=== PATIENT | female | born 1955 | race Caucasian/White ===

== ENCOUNTER 2018-08-03 08:59 | Emergency (ER) | payer BC ==
[2018-08-03] MEDS ORDERED: Ibuprofen 800 MG Tab PO ONE (09:13)
[2018-08-03] MEDS ORDERED: Colchicine 0.6 MG Tab PO ONE ×2 (09:13→11:11)
--- NOTE | 2018-08-03 09:16 | EDM.PDOC ---
ED HPI GENERAL MEDICAL PROBLEM - General Chief Complaint: Upper Extremity Injury/Pain Stated Complaint: WRIST PAIN Time Seen by Provider: 08/03/18 09:11 Source of Information: Reports: Patient History Limitations: Reports: No Limitations - History of Present Illness INITIAL COMMENTS - FREE TEXT/NARRATIVE: 63-year-old female presents the ED with acute swelling and pain with very limited range of motion in her right wrist. No injuries noted. She states was sore yesterday morning when she woke and as the day went on it progressively intensified in pain and this morning it is much worse. In fact she did not sleep much last night due to the severity of the pain. Constant aching pain with severe pain with any movement. The stripped out in the past. No recent injuries to the wrist. No previous surgery to the wrist. Onset: Gradual Onset Date: 08/02/18 (Symptoms yesterday morning of some mild pain and discomfort right wrist is progressively worsened as the day went on) Duration: Day(s):, Getting Worse Location: Reports: Upper Extremity, Right (Right wrist particular the ulnar aspect) Quality: Reports: Ache, Throbbing Severity: Moderate Improves with: Reports: Rest Worsens with: Reports: Movement Context: Reports: Other (Spontaneous occurrence.). Denies: Activity, Exercise, Lifting, Sick Contact, Trauma Associated Symptoms: Reports: No Other Symptoms Right Wrist Pain Score (Numeric/FACES): 10 - Related Data Allergies Allergy/AdvReac Type Severity Reaction Status Date / Time cephalexin Allergy Cannot Verified 08/03/18 09:09 Remember clarithromycin Allergy Cannot Verified 08/03/18 09:09 Remember clindamycin Allergy Nausea Verified 08/03/18 09:09 codeine Allergy Cannot Verified 08/03/18 09:09 Remember cyclobenzaprine Allergy Vomiting Verified 08/03/18 09:09 [Cyclobenzaprine] dextrose Allergy Other Verified 08/03/18 09:09 fenofibrate Allergy Cannot Verified 08/03/18 09:09 Remember fexofenadine Allergy Confusion Verified 08/03/18 09:09 fluoxetine Allergy Diarrhea Verified 08/03/18 09:09 levofloxacin Allergy Other Verified 08/03/18 09:09 levothyroxine sodium Allergy Cannot Verified 08/03/18 09:09 Remember paroxetine [Paroxetine] Allergy Rash Verified 08/03/18 09:09 Penicillins Allergy Cannot Verified 08/03/18 09:09 Remember pseudoephedrine Allergy Confusion Verified 08/03/18 09:09 red dye Allergy Cannot Verified 08/03/18 09:09 Remember Tetanus Vaccines and Toxoid Allergy Hives Verified 08/03/18 09:09 [Tetanus Vaccines & Toxoid] tetracycline [Tetracycline] Allergy Cannot Verified 08/03/18 09:09 Remember venlafaxine Allergy Cannot Verified 08/03/18 09:09 Remember venom-honey bee Allergy Itching Verified 08/03/18 09:09 [bee venom (honey bee)] zuclopenthixol Allergy Cannot Verified 08/03/18 09:09 Remember Home Meds: Home Meds Azithromycin [Zithromax] 500 mg PO DAILY #7 tab 08/03/18 [Rx] Biotin 10,000 mcg PO DAILY 08/03/18 [History] Brimonidine Tartrate/Timolol [Combigan Eye Drops] 5 ml EYERT BID 08/03/18 [ History] Cholecalciferol (Vitamin D3) [Vitamin D3] 1,000 unit PO DAILY 08/03/18 [History] Estradiol 1 mg PO DAILY 08/03/18 [History] Ferrous Sulfate 325 mg PO ASDIRECTED 08/03/18 [History] Finasteride 0.14 tab PO DAILY 08/03/18 [History] Flunisolide [Nasalide Nasal [place]] 1 spray SHYAM BID 08/03/18 [History] Irbesartan [Avapro] 75 mg PO DAILY 08/03/18 [History] Levothyroxine 150 mcg PO ACBREAKFAST 08/03/18 [History] Loratadine [Claritin] 10 mg PO DAILY PRN 08/03/18 [History] Magnesium Malate 1,250 mg PO DAILY 08/03/18 [History] Multivits-Min/Iron/FA/Lutein [Centrum Silver Women Tablet] 1 each PO DAILY 08/03 [History] Omeprazole 40 mg PO DAILY 08/03/18 [History] Orphenadrine [Norflex] 100 mg PO BID PRN 08/03/18 [History] Polyvinyl Alcohol/Povidone/Pf [Refresh Classic Eye Drops] 1 each EYELF DAILY PRN 08/03/18 [History] Prednisolone Acetate/Pf [Prednisolone Acet 1% Eye Drop] 1 drop EYELF QID [History] Spironolactone 150 mg PO ACBREAKFAST 08/03/18 [History] Travoprost [Travatan Z] 5 ml EYERT BEDTIME 08/03/18 [History] oxyCODONE HCl/Acetaminophen [Percocet 5-325 mg Tablet] 1 - 2 each PO Q4H PRN # 10 tablet 08/03/18 [Rx] predniSONE [Deltasone] 20 mg PO BID #10 tablet 08/03/18 [Rx] valACYclovir HCl [Valtrex] 500 mg PO DAILY 08/03/18 [History] Past Medical History HEENT History: Reports: Glaucoma - Past Surgical History GI Surgical History: Reports: Appendectomy Social & Family History - Living Situation & Occupation Living situation: Reports: Occupation: Retired Review of Systems - Review of Systems Review Of Systems: See Below Constitutional: Denies: Chills, Diaphoresis, Fever, Weakness Eyes: Reports: Other (Chronic glaucoma with decreased visual acuity with loss of peripheral vision.) Mouth/Throat: Reports: No Symptoms Respiratory: Reports: No Symptoms Cardiovascular: Reports: No Symptoms GI/Abdominal: Reports: No Symptoms Musculoskeletal: Reports: Other (Acute joint pain in her right wrist over the last 24 hours.) Skin: Reports: Other Neurological: Reports: No Symptoms Psychiatric: Reports: No Symptoms ED EXAM, GENERAL - Physical Exam Exam: See Below Exam Limited By: No Limitations General Appearance: Alert, WD/WN, No Apparent Distress Extremities: Other (Examination of her right wrist reveals some erythema with increased warmth particularly over the ulnar aspect of the carpal joints. Any abduction and abduction causes severe pain as does flexion and extension. There is slight pink erythema almost and lymphangitis pattern spreading up the mid volar forearm. This measures approximately 3 inches. Is no open wounds to indicate a reason for developing cellulitis.) Course - Vital Signs Last Recorded V/S: Last Vital Signs Temp 36.1 C 08/03/18 09:07 Pulse 98 08/03/18 09:07 Resp 16 08/03/18 09:07 BP 151/88 H 08/03/18 09:07 Pulse Ox 98 08/03/18 09:07 - Orders/Labs/Meds Orders: Active Orders 24 hr Category Date Time Status Wrist Comp Min 3V Rt [CR] Stat Exams 08/03/18 09:12 Taken Labs: Laboratory Tests 12/30/18 12/30/18 Range/Units 09:27 09:27 WBC 11.11 H (3.98-10.04) K/mm3 RBC 4.19 (3.98-5.22) M/mm3 Hgb 13.6 (11.2-15.7) gm/L Hct 40.8 (34.1-44.9) % MCV 97.4 H (79.4-94.8) fl MCH 32.5 H (25.6-32.2) pg MCHC 33.3 (32.2-35.5) g/dl RDW Std Deviation 44.6 (36.4-46.3) fL Plt Count 378 H (182-369) K/mm3 MPV 9.6 (9.4-12.3) fl Neutrophils % (Manual) 78 H (40-60) % Band Neutrophils % 0 (0-10) % Lymphocytes % (Manual) 14 L (20-40) % Atypical Lymphs % 0 % Monocytes % (Manual) 6 (2-10) % Eosinophils % (Manual) 2 (0.7-5.8) % Basophils % (Manual) 0 L (0.1-1.2) Platelet Estimate Adequate Plt Morphology Comment Normal RBC Morph Comment Normal Sodium 137 (136-145) mEq/L Potassium 4.1 (3.5-5.1) mEq/L Chloride 101 (98-107) mEq/L Carbon Dioxide 25 (21-32) mEq/L Anion Gap 15.1 H (5-15) BUN 13 (7-18) mg/dL Creatinine 0.8 (0.55-1.02) mg/dL Est Cr Clr Drug Dosing TNP Estimated GFR (MDRD) > 60 (>60) mL/min BUN/Creatinine Ratio 16.3 (14-18) Glucose 117 H (80-115) mg/dL Uric Acid 4.5 (2.6-6.0) mg/dL Calcium 9.4 (8.5-10.1) mg/dL Total Bilirubin 0.4 (0.2-1.0) mg/dL AST 20 (15-37) U/L ALT 29 (14-59) U/L Alkaline Phosphatase 62 (46-116) U/L C-Reactive Protein 3.4 H* (<1.0) mg/dL Total Protein 7.3 (6.4-8.2) g/dl Albumin 3.5 (3.4-5.0) g/dl Globulin 3.8 gm/dL Albumin/Globulin Ratio 0.9 L (1-2) Meds: Medications Discontinued Medications Generic Name Dose Route Start Last Admin Trade Name Sadia PRN Reason Stop Dose Admin Colchicine 0.6 mg 08/03/18 09:13 08/03/18 09:24 Colcrys PO 08/03/18 09:14 0.6 mg ONETIME ONE Administration Colchicine 0.6 mg 08/03/18 11:11 Colcrys PO 08/03/18 11:12 ONETIME ONE Ibuprofen 800 mg 08/03/18 09:13 08/03/18 09:24 Motrin PO 08/03/18 09:14 800 mg ONETIME ONE Administration Oxycodone/Acetaminophen 1 tab 08/03/18 11:12 Percocet 325-5 Mg PO 08/03/18 11:13 ONETIME ONE Prednisone 20 mg 08/03/18 11:11 Prednisone PO 08/03/18 11:12 ONETIME ONE - Radiology Interpretation Free Text/Narrative:: 63-year-old female presents to the ED with acute pain and swelling in her right wrist over the last 24 hours. Any movement causes exquisite pain. There is increased warmth on palpation of the joint with slight erythema on the volar aspect in a lymphangitis-like pattern. Therefore I am going to x-ray the wrist as well as have routine labs performed CBC CMP CRP and a uric acid level. Clinically she has the gout in her right wrist. An atypical presentation in place for go to occur. - Re-Assessments/Exams Free Text/Narrative Re-Assessment/Exam: 08/03/18 11:04 x-ray of the right wrist reveals some degenerative changes adjacent to the scaphoid bone. Peers that she's had an old fracture of the scaphoid. No acute fractures or deformities are identifiedWhite count is slightly elevated at 11.11. Differential reveals 70% neutrophils with no band cells reported. Hemoglobin is 13.6. Platelets are normal 3 or 78,000. Sodium 137 with a potassium of 4.1. Chloride 11 with a bicarbonate 25. Anion gap is 15.1. BUN is 13 with a creatinine of 0.8. Glucose is 117. Uric acid is normal at 4.5. Calcium is 9.4 bilirubin is 0.4. AST is 28 ELT is 29. Alkaline phosphatase normal at 62. C-reactive protein is elevated at 3.4. Protein is 7.3 with an albumin fraction of 3.5. Uric acid came back normal. Since the CRP is 3.6 I will treat her for both potential developing cellulitis but I suspect this is primarily gout. I will have her finish up 3 tablets of colchicine 0.6 mg and start her on prednisone 20 mg twice a day for 5 days with first tablet provided in the ED. She will use Aleve 2 tablets every 8 hours to reduce inflammation and pain until no pain for 2 days. I did write a prescription for 10 tablets of Percocet 5/325 mg one or 246 hours needed for pain relief. I will also place her on Zithromax 500 mg once daily since this is an antibiotic she no she can tolerate in case the red streaking in IC developing in the palmar aspect of her hand is secondary to an infective process. She will return to care if the red streaking worsens over the next 24-36 hours. Departure - Departure Time of Disposition: 11:12 Disposition: Home, Self-Care 01 Condition: Fair Clinical Impression: Acute gouty arthritis - Discharge Information *PRESCRIPTION DRUG MONITORING PROGRAM REVIEWED*: Not Applicable *COPY OF PRESCRIPTION DRUG MONITORING REPORT IN PATIENT KYMBERLY: Not Applicable Prescriptions: Azithromycin [Zithromax] 500 mg PO DAILY #7 tab oxyCODONE HCl/Acetaminophen [Percocet 5-325 mg Tablet] 1 - 2 each PO Q4H PRN # 10 tablet PRN Reason: pain relief. predniSONE [Deltasone] 20 mg PO BID #10 tablet Instructions: Low-Purine Eating Plan Referrals: Lee Ann Abarca PA-C [Primary Care Provider] - Forms: ED Department Discharge Additional Instructions: Evaluation the emergency room today in regards to acute onset of pain right wrist yesterday morning which gradually progressed intensity to become very severe overnight. His history is strongly suggestive of gout versus pseudogout crystals depositing inside the wrist joint bones. X-rays reveal some degenerative changes adjacent to the scaphoid bone which is on the thumb side of your wrist. May have been an old fracture of the scaphoid bone on x-ray. Lab work done shows a slightly elevated white count of 11.11 with normal differential and is been mildly elevated CRP at 3.6 which usually is suggestive of underlying infective or inflammatory process. The history is strongly suggestive of gout versus pseudogout but with the red streaking at the palmar aspect of your hand I cannot rule out an underlying infective process. Therefore he will be treated for both. Colchicine 0.6 [place] as was administered in the ED 2 doses and you will need the next dose in an hours time. Prednisone 20 mg first dose provided in the ED with the next dose to be given at suppertime tonight. Decision should be taken twice daily for the next 5 days. Take Aleve 2 tablets every 8 hours to reduce pain and inflammation from go crystals. Continue this for at least 5-6 days until the pain is completely gone for 2 days. Antibiotic is Zithromax 500 mg once daily for the next 7 days to clear up any infection. Follow-up if the red streaking is traveling up your volar forearm within the next 24-36 hours. - My Orders Last 24 Hours: My Active Orders 08/03/18 09:12 Wrist Comp Min 3V Rt [CR] Stat - Assessment/Plan Last 24 Hours: My Active Orders 08/03/18 09:12 Wrist Comp Min 3V Rt [CR] Stat
[2018-08-03] MEDS ORDERED: predniSONE 20 MG Tab PO ONE (11:11)
[2018-08-03] MEDS ORDERED: Acetaminophen/oxyCODONE 325-5 MG Tab PO ONE (11:12)
--- NOTE | 2018-08-03 13:53 | CR ---
Right wrist: Four views of the right wrist were obtained. Comparison: No prior wrist exam. Calcifications are seen off the radial ulnar styloid process which are likely dystrophic and chronic. Joint spaces are maintained. No acute fracture, dislocation or other bony abnormality is identified. Impression: 1. Calcifications off the radial styloid process most likely dystrophic and incidental. 2. Nothing acute is appreciated on right wrist exam. Diagnostic code #2
== END 2018-08-03 11:34 | disposition home or self-care (01) ==
LOC: JD.ED 08:59
DX: M10.9 Gout, unspecified (principal); Z90.49 Acquired absence of other specified parts of digestive tract; Z79.899 Other long term (current) drug therapy; Z88.1 Allergy status to other antibiotic agents; Z88.5 Allergy status to narcotic agent; Z91.018 Allergy to other foods; Z91.030 Bee allergy status; Z88.0 Allergy status to penicillin; Z88.7 Allergy status to serum and vaccine
CPT/HCPCS: 36415; 73110; 80053; 84550; 85007; 85027; 86140; 99284; A9270

== ENCOUNTER 2019-08-07 07:11 | Day surgery (SDC) | payer MEDICARE, BC ==
--- NOTE | 2019-08-06 14:54 | PCM.PREANE ---
Preanesthetic Assessment - Anesthesia/Transfusion/Family Hx Anesthesia History: Prior Anesthesia Without Reaction Family History of Anesthesia Reaction: No Transfusion History: No Prior Transfusion(s) Intubation History: Unknown - Review of Systems General: No Symptoms (History of fibromyalgia) Pulmonary: Cough Cardiovascular: No Symptoms (HTN, elevated cholesterol), Palpitations (Patient states she was told it was from her fibromyalgia. (Only occurs occasionally)) Gastrointestinal: No Symptoms (GERD (stomach is flipped), IBS), Constipation, Diarrhea Neurological: No Symptoms (History of motion sickness, History of vertigo), Headache (History of Migraines) Other: Reports: Easy Bruising, Thyroid Problems (Hypothyroid), Sinus Problem ( allergic rhinitis), Neck Pain (fibromyalgia) - Physical Assessment NPO Status Date: 08/06/19 NPO Status Time: 23:00 Vital Signs: HR:104 BP:153/72 Sat:97% Resp:16 Temp: 97.6 Height: 1.63 m Weight: 86 kg ASA Class: 2 Mental Status: Alert & Oriented x3 Airway Class: Mallampati = 2 Dentition: Reports: Normal Dentition, [place](s), [place] Thyro-Mental Finger Breadths: 2 Mouth Opening Finger Breadths: 3 ROM/Head Extension: Full Lungs: Clear to Auscultation, Normal Respiratory Effort Cardiovascular: Regular Rate, Regular Rhythm, No Murmurs - Lab Values: Laboratory Last Values WBC 10.49 K/mm3 (3.98-10.04) H 08/03/19 15:40 RBC 4.18 M/mm3 (3.98-5.22) 08/03/19 15:40 Hgb 13.5 gm/dl (11.2-15.7) 08/03/19 15:40 Hct 40.3 % (34.1-44.9) 08/03/19 15:40 MCV 96.4 fl (79.4-94.8) H 08/03/19 15:40 MCH 32.3 pg (25.6-32.2) H 08/03/19 15:40 MCHC 33.5 g/dl (32.2-35.5) 08/03/19 15:40 RDW Std Deviation 44.5 fL (36.4-46.3) 08/03/19 15:40 Plt Count 336 K/mm3 (182-369) 08/03/19 15:40 MPV 10.1 fl (9.4-12.3) 08/03/19 15:40 Neut % (Auto) 67.4 % (34.0-71.1) 08/03/19 15:40 Lymph % (Auto) 24.4 % (19.3-51.7) 08/03/19 15:40 [place] % (Auto) 6.9 % (4.7-12.5) 08/03/19 15:40 Eos % (Auto) 0.7 (0.7-5.8) 08/03/19 15:40 Baso % (Auto) 0.4 % (0.1-1.2) 08/03/19 15:40 Neut # (Auto) 7.08 K/mm3 (1.56-6.13) H 08/03/19 15:40 Lymph # (Auto) 2.56 K/mm3 (1.18-3.74) 08/03/19 15:40 [place] # (Auto) 0.72 K/mm3 (0.24-0.36) H 08/03/19 15:40 Eos # (Auto) 0.07 K/mm3 (0.04-0.36) 08/03/19 15:40 Baso # (Auto) 0.04 K/mm3 (0.01-0.08) 08/03/19 15:40 Sodium 137 mEq/L (136-145) 08/03/19 15:40 Potassium 4.3 mEq/L (3.5-5.1) 08/03/19 15:40 Chloride 100 mEq/L (98-107) 08/03/19 15:40 Carbon Dioxide 24 mEq/L (21-32) 08/03/19 15:40 Anion Gap 17.3 (5-15) H 08/03/19 15:40 BUN 14 mg/dL (7-18) 08/03/19 15:40 Creatinine 0.8 mg/dL (0.55-1.02) 08/03/19 15:40 Est Cr Clr Drug Dosing TNP 08/03/19 15:40 Estimated GFR (MDRD) > 60 mL/min (>60) 08/03/19 15:40 BUN/Creatinine Ratio 17.5 (14-18) 08/03/19 15:40 Glucose 106 mg/dL (80-115) 08/03/19 15:40 Calcium 9.5 mg/dL (8.5-10.1) 08/03/19 15:40 Total Bilirubin 0.3 mg/dL (0.2-1.0) 08/03/19 15:40 AST 19 U/L (15-37) 08/03/19 15:40 ALT 27 U/L (14-59) 08/03/19 15:40 Alkaline Phosphatase 62 U/L (46-116) 08/03/19 15:40 Total Protein 7.3 g/dl (6.4-8.2) 08/03/19 15:40 Albumin 3.5 g/dl (3.4-5.0) 08/03/19 15:40 Globulin 3.8 gm/dL 08/03/19 15:40 Albumin/Globulin Ratio 0.9 (1-2) L 08/03/19 15:40 Urine Color Light yellow (Yellow) 08/03/19 15:40 Urine Appearance Clear (Clear) 08/03/19 15:40 Urine pH 6.5 (5.0-8.0) 08/03/19 15:40 Ur Specific [place] > or = 1.030 (1.005-1.030) 08/03/19 15:40 Urine Protein Negative (Negative) 08/03/19 15:40 Urine Glucose (UA) Negative (Negative) 08/03/19 15:40 Urine Ketones Negative (Negative) 08/03/19 15:40 Urine Occult Blood Negative (Negative) 08/03/19 15:40 Urine Nitrite Negative (Negative) 08/03/19 15:40 Urine Bilirubin Negative (Negative) 08/03/19 15:40 Urine Urobilinogen 0.2 (0.2-1.0) 08/03/19 15:40 Ur Leukocyte Esterase Negative (Negative) 08/03/19 15:40 Urine RBC Not seen /hpf (0-5) 08/03/19 15:40 Urine WBC 0-5 /hpf (0-5) 08/03/19 15:40 Ur Squamous Epith Cells 10-20 /hpf (0-5) H 08/03/19 15:40 Urine Bacteria Moderate /hpf (FEW) H 08/03/19 15:40 Urine Mucus Not seen /hpf (FEW) 08/03/19 15:40 Above labs reviewed and noted and within acceptable ranges to proceed with scheduled procedure. - Imaging/EKG Impressions: EKG: SR rate= 89, left anterior fascicular block, abnormal R-wave progression, left ventricular hypertrophy, ST elevation, consider inferior injury. - Allergies Allergies/Adverse Reactions: Allergies Allergy/AdvReac Type Severity Reaction Status Date / Time cephalexin Allergy Rash Verified 08/06/19 08:37 doxycycline Allergy Rash Verified 08/06/19 08:37 levothyroxine sodium Allergy Rash Verified 08/06/19 08:37 paroxetine [Paroxetine] Allergy Rash Verified 08/06/19 08:37 Penicillins Allergy Cannot Verified 08/06/19 08:37 Remember red dye Allergy Cannot Verified 08/06/19 08:37 Remember sulfamethoxazole Allergy Rash Verified 08/06/19 08:37 [From Bactrim] Tetanus Vaccines and Toxoid Allergy Hives Verified 08/06/19 08:37 [Tetanus Vaccines & Toxoid] trimethoprim [From Bactrim] Allergy Rash Verified 08/06/19 08:37 venom-honey bee Allergy Itching Verified 08/06/19 08:37 [bee venom (honey bee)] clarithromycin AdvReac metallic Verified 08/06/19 08:37 taste codeine AdvReac Headache Verified 08/06/19 08:37 fenofibrate AdvReac Muscle Verified 08/06/19 08:37 Weakness fluoxetine AdvReac Diarrhea Verified 08/06/19 08:37 levofloxacin AdvReac irregular Verified 08/06/19 08:37 heart beat oseltamivir [From Tamiflu] AdvReac Nausea Verified 08/06/19 08:37 venlafaxine AdvReac Vomiting Verified 08/06/19 08:37 wasps Allergy Anaphylactic Uncoded 08/06/19 08:37 Shock - Anesthesia Plan Pre-Op Medication Ordered: None - Acknowledgements Anesthesia Type Planned: General Anesthesia Pt an Appropriate Candidate for the Planned Anesthesia: Yes Alternatives and Risks of Anesthesia Discussed w Pt/Guardian: Yes Pt/Guardian Understands and Agrees with Anesthesia Plan: Yes PreAnesthesia Questionnaire HEENT History: Reports: Allergic Rhinitis, Glaucoma Cardiovascular History: Reports: Hypertension, Other (See Below) Respiratory History: Reports: Bronchitis, Recurrent, Pneumonia, Recurrent Other Respiratory History: cough, lower respiratory infection Gastrointestinal History: Reports: GERD, Irritable Bowel Syndrome Other Gastrointestinal History: stomach malrotation Genitourinary History: Reports: Urinary Incontinence, Other (See Below) Other Genitourinary History: CYSTOCELE DISK RECORDIST History: Reports: Other (See Below) Other OB/BYN History: breast pain Musculoskeletal History: Reports: Osteoarthritis Other Musculoskeletal History: generalized weakness Neurological History: Reports: Migraines Psychiatric History: Reports: Depression, Other (See Below) Endocrine/Metabolic History: Reports: Hypothyroidism, Obesity/BMI 30+ Other Endocrine/Metabolic History: enlarged thyroid, thyroid nodule Hematologic History: Reports: Anemia Immunologic History: Reports: None Oncologic (Cancer) History: Reports: None Dermatologic History: Reports: Eczema Other Dermatologic History: hair loss, actinic keratosis, facial flushing, seborrheic keratosis - Past Surgical History Head Surgeries/Procedures: Reports: None HEENT Surgical History: Reports: Cataract Surgery, Eye Surgery, Naso-Sinus Surgery, Oral Surgery Cardiovascular Surgical History: Reports: Aneurysm Respiratory Surgical History: Reports: None GI Surgical History: Reports: Appendectomy, Colonoscopy Female Surgical History: Reports: Hysterectomy Other Female Surgeries/Procedures: lumpectomy; fibrocystic breast Endocrine Surgical History: Reports: None Neurological Surgical History: Reports: None Musculoskeletal Surgical History: Reports: Carpal Tunnel, Other (See Below) Other Musculoskeletal Surgeries/Procedures:: foot surgery Oncologic Surgical History: Reports: Biopsy of Breast Dermatological Surgical History: Reports: Other (See Below) - SUBSTANCE USE Smoking Status *Q: Never Smoker Recreational Drug Use History: No - HOME MEDS Home Medications: Home Meds Brimonidine Tartrate/Timolol [Combigan 0.2%-0.5% Eye Drops] 5 ml EYERT BID 08/03 [History] Finasteride 1.75 mg PO DAILY 08/03/18 [History] Flunisolide [Nasalide Nasal [place]] 2 spray SHYAM BID 08/03/18 [History] Levothyroxine 150 mcg PO ACBREAKFAST 08/03/18 [History] Multivit-Min/Iron/Folic/Lutein [Centrum Silver Women Tablet] 1 each PO DAILY [History] Omeprazole 40 mg PO DAILY 08/03/18 [History] Orphenadrine [Norflex] 100 mg PO BID PRN 08/03/18 [History] Spironolactone 150 mg PO DAILY 08/03/18 [History] Travoprost [Travatan Z] 5 ml EYERT BEDTIME 08/03/18 [History] estradioL [Estradiol] 1 mg PO DAILY 08/03/18 [History] valACYclovir HCl [Valtrex] 500 mg PO DAILY 08/03/18 [History] Betamethasone/Propylene Glyc [Betamethasone DP Aug 0.05%] 1 dose TOP BID PRN 02/20 [History] Cyanocobalamin (Vitamin B-12) [Vitamin B-12] 1,000 mcg PO DAILY 03/11/19 [ History] EPINEPHrine [Epipen] 1 dose IM ONETIME 03/11/19 [History] Losartan [Cozaar] 12.5 mg PO DAILY 03/11/19 [History] predniSONE 20 - 40 mg PO ASDIRECTED PRN 08/06/19 [History] - CURRENT (IN HOUSE) MEDS Current Meds: Current Medications Lactated Ringer's (Ringers, Lactated) 1,000 mls @ 125 mls/hr IV ASDIRECTED MOHINDER Stop: 08/07/19 23:00 Lidocaine/Sodium Bicarbonate (Buffered Lidocaine 1% In Ns 8.4%) 0.25 ml IDERM ONETIME PRN PRN Reason: Prior to IV Start Stop: 08/07/19 18:00 Sodium Chloride (Saline Flush) 10 ml FLUSH ASDIRECTED PRN PRN Reason: Keep Vein Open Stop: 08/07/19 18:00
[~2019-08-07 07:11] MED LIST: Lactated Ringers 1,000 ML IV SCH; Lidocaine 1%/Sod Bicarbonate in NS 8.4% 1 ML Syringe IDERM PRN; Sodium Chloride 0.9% 10 ML Syringe FLUSH PRN
[2019-08-07] MEDS ORDERED: Ondansetron 4 MG/2 ML SDV ONE (07:22)
[2019-08-07] MEDS ORDERED: ceFAZolin 1 GM Vial ONE (07:22)
[2019-08-07] MEDS ORDERED: HYDROmorphone 0.5 MG/0.5 ML Syringe ONE ×2 (07:22→09:51)
[2019-08-07] MEDS ORDERED: Lactated Ringers 1,000 ML ONE ×2 (07:22→09:24)
[2019-08-07] MEDS ORDERED: Lidocaine 1% 6 ML ONE (07:22)
[2019-08-07] MEDS ORDERED: Dexamethasone 4 MG/ML 5 ML MDV ONE (07:22)
[2019-08-07] MEDS ORDERED: Ketorolac 30 MG/ML SDV ONE (07:22)
[2019-08-07] MEDS ORDERED: Rocuronium 100 MG/10 ML MDV ONE (07:22)
[2019-08-07] MEDS ORDERED: fentaNYL 250 MCG/5 ML SDV ONE (07:23)
[2019-08-07] MEDS ORDERED: Propofol 200 MG/20 ML SDV ONE (07:23)
[2019-08-07] MEDS ORDERED: Midazolam 1 MG/ML 2 ML SDV ONE (07:23)
[2019-08-07] MEDS ORDERED: Scopolamine 1.5 MG Transdermal Patch TRDERM ONE (08:30)
[2019-08-07] MEDS ORDERED: Phenylephrine 1 MG in Sodium Chloride 0.9% 10 ML IV SCH (09:15)
[2019-08-07] MEDS ORDERED: ePHEDrine 50 MG/ML SDV IVPUSH PRN (09:15)
[2019-08-07] MEDS: Lidocaine 1% with EPINEPHrine 1:100,000 20 ML MDV ONE ×2 (09:15→09:43)
[2019-08-07] MEDS: Sodium Chloride 0.9% 50 ML SDV ONE ×2 (09:15→09:43)
[2019-08-07] MEDS ORDERED: fentaNYL 100 MCG/2 ML SDV IVPUSH PRN (09:15)
[2019-08-07] MEDS ORDERED: diphenhydrAMINE 50 MG/ML SDV IVPUSH PRN (09:15)
[2019-08-07] MEDS ORDERED: Ondansetron 4 MG/2 ML SDV IVPUSH PRN ×2 (09:15→10:21)
[2019-08-07] MEDS ORDERED: Albuterol 0.083% 2.5 MG/3 ML Neb Soln NEB PRN (09:15)
[2019-08-07] MEDS ORDERED: HYDROmorphone 0.5 MG/0.5 ML Syringe IVPUSH PRN (09:15)
[2019-08-07] MEDS ORDERED: Neostigmine Methylsulfate 1 MG/ML 5 ML Syringe ONE (09:25)
[2019-08-07] MEDS ORDERED: diphenhydrAMINE 50 MG/ML SDV ONE (09:35)
[2019-08-07] MEDS ORDERED: Labetalol 100 MG/20 ML MDV ONE (10:01)
--- NOTE | 2019-08-07 10:30 | PCM.OPNOTE ---
- General Post-Op/Procedure Note Date of Surgery/Procedure: 08/07/19 Operative Procedure(s): Anterior and posterior vaginal repair with perineoplasty , subfascial mid-urethral sling Findings: Patient is a grade 3 cystocele, grade 2 rectocele. She is status post hysterectomy. Gaping introitus noted along 4 fingerbreadth evaluation. Pre Op Diagnosis: 1. Grade 3 cystocele. 2. Grade 2 rectocele. 3. Stress urinary incontinence Post-Op Diagnosis: Same Anesthesia Technique: General ET Tube Other Anesthesia Type: Lidocaine quarter percent with epinephrineapproximately 15 mL total Primary Surgeon: Andriy Barclay Secondary Surgeon: Adan Giles Security Infrastructure Engineer: Darrell Stauffer Security Infrastructure Engineer Was Necessary: Assistance, retraction, quality of care, patient safety Fluid Replacement, Intraop: 1,300 Output, Urine Amount: 70 EBL in mLs: 30 Complications: None Condition: Good Free Text/Narrative:: Surgery duration: 61 minutes Procedure: The patient was appropriately consented for the procedure proposed. She was then taken to the operating room and placed in a supine position on the operating table. She received 2 g of Ancef preoperatively for infection prophylaxis. She had sequential compression stockings in place for DVT prophylaxis. Patient was administered general endotracheal anesthesia. She was placed in a dorsal lithotomy position and prepped and draped in the usual fashion. Anterior vaginal repair was performed. Patient had emptied her bladder chain maker loom control to the OR. Weighted speculum was placed in the vagina and the uppermost portion of the cystocele was identified. Two Allis clamps was placed at that uppermost point at a position approximately 1-1/2 cm lateral to the midline A second Allis clamp was placed approximately 2 cm from the urethral meatus. The areas and infiltrated with lidocaine quarter percent with epinephrine. Approximately 8 mL was used. The 2 lateral Allis clamps were retracted and an epithelial incision was made between the 2 clamps. A midline incision was then made with a Metzenbaum scissors. The overlying epithelium was then dissected off of the underlying vesicovaginal fascia. This all to lateral which when approximately midline was felt to be adequate to reduce the cystocele. When this was done approximately 5 trapezoidal shaped sutures of 0 Monocryl were then placed reapproximating the lateral supportive tissue midline and reducing the cystocele. At this point the excess epithelium bilaterally was removed and the epithelium was closed in a running fashion with 2 short segments to decrease likelihood of shortening of the vagina. Her bladder was drained with a red rubber catheter. Normal urine-70 cc -was removed. The epithelium overlying the urethra was grasped approximately 1 cm from the urethral meatus and approximately 2 cm cephalad from there with Allis clamps. The area of the skin overlying the medial aspect of the obturator foramen on each side just posterior to the origin the abductor longus muscle was marked with a marking pen. These 2 areas and the sub-fascial layer of the vaginal were then infiltrated with lidocaine quarter percent with epinephrine total of approximately 10 mL was used. incisions made in the epithelium overlying the urethra and 2 small stab wounds 3 mm in length were made in the 2 areas of the panty line of the patient. The subfascial planes and adequately dissected bilaterally to allow placement of the mesh. The helical adapter was then placed through the obturator on patient's left side brought out through the vaginal subfascial plane. Mesh was attached to it and then was pulled back through the obturator foramen. Same was done on the right side. Mesh was then snugged up to the urethra. Dilator 15 mm in diameter was used as a spacer to place the mesh in a tension-free position. At this point the mesh was cut off at the skin surface and the dilator was removed. The midline epithelium was closed with a short running suture of 3-0 Monocryl. Rectocele was then performed. The uppermost portion of the rectocele was identified and was grasped midline with an Allis clamp. The introital area was grasped at approximately the 5:00 and 7:00 positions at the junction of the vaginal and vulvar epithelium. The area of epithelium was then infiltrated with lidocaine quarter percent with epinephrine. A amairani-shaped piece of epithelium was removed from the posterior introital and perineal area. The vaginal epithelium was then undermined superiorly to the top of the rectocele. Was then incised midline. With sharp and blunt dissection the epithelium was then dissected off of the underlying vesicovaginal fascia. At this point approximately 4 sutures of 0 Monocryl were placed to reapproximate the lateral supportive tissue midline and reduce the rectocele. The excess epithelium was then excised and the epithelium overlying the rectocele repair was then reapproximated with a running suture of 3-0 Monocryl. Perineoplasty was then performed with approximately 4 V-shaped stitches of 0 Monocryl in placed to reapproximate the lateral tissue midline, rebuild the perineum about 1 cm and the vagina approximately 1 cm. The epithelium of the introitus and perineal body was then reapproximated using 3-0 Monocryl in an episiotomy repair fashion. At this time sponge, instrument and needle counts were correct. Skin incisions used for placement of the subfascial, mid-urethral mesh were closed with Dermabond skin glue. The patient is bladder was filled with approximately 240 cc of normal saline to facilitate voiding and therefore discharge home. The patient was returned to supine position, awakened from general endotracheal anesthesia and was discharged from operating room in good condition
--- NOTE | 2019-08-07 10:41 | PCM48HPAN ---
Post Anesthesia Note - EVALUATION WITHIN 48HRS OF ANESTHETIC Vital Signs in Normal Range: Yes Patient Participated in Evaluation: Yes Respiratory Function Stable: Yes Airway Patent: Yes Cardiovascular Function Stable: Yes Hydration Status Stable: Yes Pain Control Satisfactory: Yes Nausea and Vomiting Control Satisfactory: Yes Mental Status Recovered: Yes Vital Signs: Last Vital Signs Temp 97.7 08/07/19 1026 Pulse 85 08/07/19 1026 Resp 9 08/07/19 1026 BP 174/90 08/07/19 1026 Pulse Ox 97 08/07/19 1026
--- NOTE | 2019-08-07 12:34 | PCM48HPAN ---
Post Anesthesia Note - EVALUATION WITHIN 48HRS OF ANESTHETIC Vital Signs in Normal Range: Yes Patient Participated in Evaluation: Yes Respiratory Function Stable: Yes Airway Patent: Yes Cardiovascular Function Stable: Yes Hydration Status Stable: Yes Pain Control Satisfactory: Yes Nausea and Vomiting Control Satisfactory: Yes Mental Status Recovered: Yes Vital Signs: Last Vital Signs Temp 36.6 C 08/07/19 12:00 Pulse 69 08/07/19 12:00 Resp 17 08/07/19 12:00 BP 124/67 08/07/19 12:00 Pulse Ox 97 08/07/19 12:00
[2019-08-07] MEDS ORDERED: Ketorolac 30 MG/ML SDV IVPUSH SCH (13:30)
[2019-08-07] MEDS ORDERED: Ibuprofen 600 MG Tab PO PRN (19:30)
== END 2019-08-07 13:15 | disposition home or self-care (01) ==
LOC: JD.SDS 07:11
PROVIDERS: ATTEND Obstetrics & Gynecology
DX: N81.10 Cystocele, unspecified (principal); N81.6 Rectocele; N39.3 Stress incontinence (female) (male); I16.0 Hypertensive urgency; E78.00 Pure hypercholesterolemia, unspecified
CPT/HCPCS: 36415; 57260; 57288; 80053; 81001; 85025; 93005; A9270; C1771; J0690; J1100; J1170; J1200; J1885; J2001; J2250; J2405; J2704; J2710; J3010; J3490; J7120; 00860

== ENCOUNTER 2019-08-09 11:54 | Inpatient (IN) | payer MEDICARE, BC ==
[2019-08-09] MEDS ORDERED: Sodium Chloride 0.9% 10 ML Syringe FLUSH PRN (12:21)
[2019-08-09] MEDS ORDERED: Ondansetron 4 MG/2 ML SDV IVPUSH ONE (12:21)
[2019-08-09] MEDS ORDERED: HYDROmorphone 1 MG/ML Syringe IVPUSH ONE (12:22)
[2019-08-09] MEDS ORDERED: Sodium Chloride 0.9% 1,000 ML IV SCH (12:30)
[2019-08-09] MEDS ORDERED: Iopamidol 755 Mg/ML 100 ML Bottle IVPUSH ONE (12:57)
[2019-08-09] MEDS ORDERED: Sodium Chloride 0.9% 100 ML IV ONE (12:57)
--- NOTE | 2019-08-09 13:15 | EDM.PDOC ---
ED HPI GENERAL MEDICAL PROBLEM - General Chief Complaint: General Stated Complaint: RIB PAIN AFTER SURGERY FRI Time Seen by Provider: 08/09/19 12:05 Source of Information: Reports: Patient History Limitations: Reports: No Limitations - History of Present Illness INITIAL COMMENTS - FREE TEXT/NARRATIVE: The patient presents with bilateral chest pain. This started this morning. She had a bladder sling and rectocele fixed by Dr Barclay on Saturday. She did good yesterday. This morning the pain started. She says this feels like cramping pain. She has some shortness of breath. She has no history of PE or DVT. She has mild swelling in her legs. She had a fever yesterday but that went away. She has no cough. She has nausea. She has no dysuria or hematuria. She xie have some pain in the upper abdomen. Onset: Gradual Duration: Hour(s): Location: Reports: Chest Quality: Reports: Sharp (and cramping) Severity: Severe Improves with: Reports: None Worsens with: Reports: None Associated Symptoms: Reports: Chest Pain, Fever/Chills, Shortness of Breath. Denies: Cough, Headaches, Nausea/Vomiting Thoracic Pain Score (Numeric/FACES): 10 - Related Data Allergies Allergy/AdvReac Type Severity Reaction Status Date / Time cephalexin Allergy Rash Verified 08/09/19 12:09 doxycycline Allergy Rash Verified 08/09/19 12:09 levothyroxine sodium Allergy Rash Verified 08/09/19 12:09 paroxetine [Paroxetine] Allergy Rash Verified 08/09/19 12:09 Penicillins Allergy Cannot Verified 08/09/19 12:09 Remember red dye Allergy Cannot Verified 08/09/19 12:09 Remember sulfamethoxazole Allergy Rash Verified 08/09/19 12:09 [From Bactrim] Tetanus Vaccines and Toxoid Allergy Hives Verified 08/09/19 12:09 [Tetanus Vaccines & Toxoid] trimethoprim [From Bactrim] Allergy Rash Verified 08/09/19 12:09 venom-honey bee Allergy Itching Verified 08/09/19 12:09 [bee venom (honey bee)] clarithromycin AdvReac metallic Verified 08/09/19 12:09 taste codeine AdvReac Headache Verified 08/09/19 12:09 fenofibrate AdvReac Muscle Verified 08/09/19 12:09 Weakness fluoxetine AdvReac Diarrhea Verified 08/09/19 12:09 levofloxacin AdvReac irregular Verified 08/09/19 12:09 heart beat oseltamivir [From Tamiflu] AdvReac Nausea Verified 08/09/19 12:09 venlafaxine AdvReac Vomiting Verified 08/09/19 12:09 wasps Allergy Anaphylactic Uncoded 08/09/19 12:09 Shock Home Meds: Home Meds Brimonidine Tartrate/Timolol [Combigan 0.2%-0.5% Eye Drops] 1 drop EYERT BID [History] Finasteride 1.25 mg PO DAILY 08/03/18 [History] Flunisolide [Nasalide Nasal [place]] 2 spray SHYAM BID 08/03/18 [History] Levothyroxine 150 mcg PO ACBREAKFAST 08/03/18 [History] Multivit-Min/Iron/Folic/Lutein [Centrum Silver Women Tablet] 1 tab PO DAILY [History] Omeprazole 40 mg PO DAILY 08/03/18 [History] Orphenadrine [Norflex] 100 mg PO BID PRN 08/03/18 [History] Spironolactone 150 mg PO DAILY 08/03/18 [History] Travoprost [Travatan Z] 1 drop EYERT BEDTIME 08/03/18 [History] estradioL [Estradiol] 1.5 mg PO DAILY 08/03/18 [History] valACYclovir HCl [Valtrex] 500 mg PO DAILY 08/03/18 [History] Betamethasone/Propylene Glyc [Betamethasone DP Aug 0.05%] 1 dose TOP BID PRN 02/20 [History] Cyanocobalamin (Vitamin B-12) [Vitamin B-12] 1,000 mcg PO DAILY 03/11/19 [ History] EPINEPHrine [Epipen] 1 dose IM ONETIME PRN 03/11/19 [History] Losartan [Cozaar] 12.5 mg PO DAILY 03/11/19 [History] predniSONE 20 - 40 mg PO ASDIRECTED PRN 08/06/19 [History] Acetaminophen/oxyCODONE [Percocet 325-5 MG] 2 tab PO Q6HR PRN #20 tab 08/07/19 [ Rx] Ibuprofen [Motrin] 600 mg PO Q4H PRN tablet 08/07/19 [Rx] Prednisolone Acetate/Pf [Prednisolone Acet 1% Eye Drop] 1 drop EYELF TID [History] Past Medical History HEENT History: Reports: Allergic Rhinitis, Glaucoma Cardiovascular History: Reports: Hypertension, Other (See Below) Respiratory History: Reports: Bronchitis, Recurrent, Pneumonia, Recurrent Other Respiratory History: cough, lower respiratory infection Gastrointestinal History: Reports: GERD, Irritable Bowel Syndrome Other Gastrointestinal History: stomach malrotation Genitourinary History: Reports: Urinary Incontinence, Other (See Below) Other Genitourinary History: CYSTOCELE COLOR DEVELOPER History: Reports: Other (See Below) Other COLOR DEVELOPER History: breast pain Musculoskeletal History: Reports: Osteoarthritis Other Musculoskeletal History: generalized weakness Neurological History: Reports: Migraines Psychiatric History: Reports: Depression, Other (See Below) Endocrine/Metabolic History: Reports: Hypothyroidism, Obesity/BMI 30+ Other Endocrine/Metabolic History: enlarged thyroid, thyroid nodule Hematologic History: Reports: Anemia Immunologic History: Reports: None Oncologic (Cancer) History: Reports: None Dermatologic History: Reports: Eczema Other Dermatologic History: hair loss, actinic keratosis, facial flushing, seborrheic keratosis - Past Surgical History Head Surgeries/Procedures: Reports: None HEENT Surgical History: Reports: Cataract Surgery, Eye Surgery, Naso-Sinus Surgery, Oral Surgery Cardiovascular Surgical History: Reports: Aneurysm Respiratory Surgical History: Reports: None GI Surgical History: Reports: Appendectomy, Colonoscopy Female Surgical History: Reports: Hysterectomy Other Female Surgeries/Procedures: lumpectomy; fibrocystic breast, cystocele , rectocele, bladder sling Endocrine Surgical History: Reports: None Neurological Surgical History: Reports: None Musculoskeletal Surgical History: Reports: Carpal Tunnel, Other (See Below) Other Musculoskeletal Surgeries/Procedures:: foot surgery Oncologic Surgical History: Reports: Biopsy of Breast Dermatological Surgical History: Reports: Other (See Below) Social & Family History - Tobacco Use Smoking Status *Q: Never Smoker Second Hand Smoke Exposure: No - Caffeine Use Caffeine Use: Reports: Coffee - Recreational Drug Use Recreational Drug Use: No - Living Situation & Occupation Living situation: Reports: , with Spouse Occupation: Retired ED ROS GENERAL - Review of Systems Review Of Systems: See Below Constitutional: Reports: Fever HEENT: Reports: No Symptoms Respiratory: Reports: Shortness of Breath. Denies: Cough Cardiovascular: Reports: Chest Pain Endocrine: Reports: No Symptoms GI/Abdominal: Reports: Abdominal Pain, Nausea. Denies: Diarrhea, Vomiting : Reports: No Symptoms Musculoskeletal: Reports: No Symptoms ED EXAM, GENERAL - Physical Exam Exam: See Below Exam Limited By: No Limitations General Appearance: Alert, No Apparent Distress Ears: Normal External Exam Nose: Normal Inspection Head: Atraumatic, Normocephalic Neck: Normal Inspection, Supple, Non-Tender Respiratory/Chest: No Respiratory Distress, Lungs Clear, Normal Breath Sounds Cardiovascular: Regular Rate, Rhythm, No Edema, No Murmur GI/Abdominal: Soft, Non-Tender, No Organomegaly, No Mass Extremities: Normal Inspection Course - Vital Signs Last Recorded V/S: Last Vital Signs Temp 97 F 08/09/19 12:06 Pulse 89 08/09/19 13:58 Resp 16 08/09/19 12:06 BP 146/76 H 08/09/19 12:06 Pulse Ox 97 08/09/19 13:58 - Orders/Labs/Meds Orders: Active Orders 24 hr Category Date Time Status Patient Status [ADT] Routine ADT 08/09/19 17:08 Active Cardiac Monitoring [RC] . DIRECTED Care 08/09/19 12:21 Active EKG Documentation Completion [RC] STAT Care 08/09/19 12:22 Active Peripheral IV Care [RC] . DIRECTED Care 08/09/19 12:21 Active CULTURE BLOOD [BC] Stat Lab 08/09/19 16:42 Ordered CULTURE BLOOD [BC] Stat Lab 08/09/19 16:42 Ordered LACTIC ACID [CHEM] Stat Lab 08/09/19 16:41 Ordered Levofloxacin/Dextrose 5%-Water [Levaquin in D5W 750 MG/ Med 08/09/19 16:18 Active 150 ML] 750 mg Premix Bag 1 bag IV ONETIME Sodium Chloride 0.9% [Normal Saline] 1,000 ml Med 08/09/19 12:30 Active IV ASDIRECTED Sodium Chloride 0.9% [Saline Flush] Med 08/09/19 12:21 Active 10 ml FLUSH ASDIRECTED PRN metroNIDAZOLE/Normal Saline [Flagyl 500 MG in NS 100 ML Med 08/09/19 16:32 Active ] 500 mg Premix Bag 1 bag IV ONETIME Blood Culture x2 Reflex Set [OM.PC] Stat Oth 08/09/19 16:42 Ordered ED Antiemetic Medication Reflex [OM.PC] Stat Oth 08/09/19 12:21 Ordered Peripheral IV Insertion Adult [OM.PC] Stat Oth 08/09/19 12:21 Ordered Medication Orders Sodium Chloride (Normal Saline) 1,000 mls @ 125 mls/hr IV ASDIRECTED MOHINDER Last Admin: 08/09/19 12:40 Dose: 125 mls/hr Levofloxacin/Dextrose 750 mg/ (Premix) 150 mls @ 100 mls/hr IV ONETIME ONE Stop: 08/09/19 17:47 Last Admin: 08/09/19 16:45 Dose: Not Given Metronidazole 500 mg/ Premix 100 mls @ 100 mls/hr IV ONETIME ONE Stop: 08/09/19 17:31 Sodium Chloride (Saline Flush) 10 ml FLUSH ASDIRECTED PRN PRN Reason: Keep Vein Open Last Admin: 08/09/19 12:40 Dose: 10 ml Labs: Laboratory Tests 08/09/19 08/09/19 08/09/19 Range/Units 12:35 12:35 13:23 WBC 15.43 H (3.98-10.04) K/mm3 RBC 3.90 L (3.98-5.22) M/mm3 Hgb 12.5 (11.2-15.7) gm/dl Hct 38.2 (34.1-44.9) % MCV 97.9 H (79.4-94.8) fl MCH 32.1 (25.6-32.2) pg MCHC 32.7 (32.2-35.5) g/dl RDW Std Deviation 48.0 H (36.4-46.3) fL Plt Count 305 (182-369) K/mm3 MPV 10.1 (9.4-12.3) fl Neut % (Auto) 86.8 H (34.0-71.1) % Lymph % (Auto) 6.9 L (19.3-51.7) % Stark % (Auto) 5.4 (4.7-12.5) % Eos % (Auto) 0.5 L (0.7-5.8) Baso % (Auto) 0.2 (0.1-1.2) % Neut # (Auto) 13.40 H (1.56-6.13) K/mm3 Lymph # (Auto) 1.07 L (1.18-3.74) K/mm3 Stark # (Auto) 0.83 H (0.24-0.36) K/mm3 Eos # (Auto) 0.07 (0.04-0.36) K/mm3 Baso # (Auto) 0.03 (0.01-0.08) K/mm3 Manual Slide Review Abnormal smear Sodium 139 (136-145) mEq/L Potassium 4.0 (3.5-5.1) mEq/L Chloride 103 (98-107) mEq/L Carbon Dioxide 25 (21-32) mEq/L Anion Gap 15.0 (5-15) BUN 12 (7-18) mg/dL Creatinine 0.9 (0.55-1.02) mg/dL Est Cr Clr Drug Dosing 53.81 mL/min Estimated GFR (MDRD) > 60 (>60) mL/min BUN/Creatinine Ratio 13.3 L (14-18) Glucose 108 (80-115) mg/dL Calcium 9.4 (8.5-10.1) mg/dL Total Bilirubin 3.4 H (0.2-1.0) mg/dL AST 197 H (15-37) U/L ALT 207 H (14-59) U/L Alkaline Phosphatase 111 (46-116) U/L Troponin I < 0.017 (0.00-0.056) ng/mL Total Protein 6.8 (6.4-8.2) g/dl Albumin 3.3 L (3.4-5.0) g/dl Globulin 3.5 gm/dL Albumin/Globulin Ratio 0.9 L (1-2) Urine Color Yellow (Yellow) Urine Appearance Clear (Clear) Urine pH 6.0 (5.0-8.0) Ur Specific [place] 1.015 (1.005-1.030) Urine Protein Negative (Negative) Urine Glucose (UA) Negative (Negative) Urine Ketones Negative (Negative) Urine Occult Blood 2+ H (Negative) Urine Nitrite Negative (Negative) Urine Bilirubin Negative (Negative) Urine Urobilinogen 0.2 (0.2-1.0) Ur Leukocyte Esterase 1+ H (Negative) Urine RBC 10-20 H (0-5) /hpf Urine WBC 0-5 (0-5) /hpf Ur Squamous Epith Cells 0-5 (0-5) /hpf Urine Bacteria Rare (FEW) /hpf Urine Mucus Not seen (FEW) /hpf Meds: Medications Generic Name Dose Route Start Last Admin Trade Name Freq PRN Reason Stop Dose Admin Sodium Chloride 1,000 mls @ 125 mls/hr 08/09/19 12:30 08/09/19 12:40 Normal Saline IV 125 mls/hr ASDIRECTED MOHINDER Administration Levofloxacin/Dextrose 750 mg/ 150 mls @ 100 mls/hr 08/09/19 16:18 08/09/19 16 :45 Premix IV 08/09/19 17:47 Not Given ONETIME ONE Metronidazole 500 mg/ Premix 100 mls @ 100 mls/hr 08/09/19 16:32 IV 08/09/19 17:31 ONETIME ONE Sodium Chloride 10 ml 08/09/19 12:21 08/09/19 12:40 Saline Flush FLUSH 10 ml ASDIRECTED PRN Administration Keep Vein Open Discontinued Medications Generic Name Dose Route Start Last Admin Trade Name Freq PRN Reason Stop Dose Admin Diazepam 5 mg 08/09/19 16:48 08/09/19 16:55 Valium IVPUSH 08/09/19 16:49 5 mg ONETIME ONE Administration Hydromorphone HCl 1 mg 08/09/19 12:22 08/09/19 12:37 Dilaudid IVPUSH 08/09/19 12:23 1 mg ONETIME ONE Administration Hydromorphone HCl 0.5 mg 08/09/19 15:17 08/09/19 15:29 Dilaudid IVPUSH 08/09/19 15:18 0.5 mg ONETIME ONE Administration Sodium Chloride 100 mls @ 4 mls/sec 08/09/19 12:57 08/09/19 13:21 Normal Saline IV 08/09/19 12:58 4 mls/sec ONETIME ONE Administration Meropenem 1 gm/ Sodium 100 mls @ 200 mls/hr 08/09/19 16:44 Chloride IV 08/09/19 17:13 ONETIME ONE Iopamidol 100 ml 08/09/19 12:57 08/09/19 13:21 Isovue-370 (76%) IVPUSH 08/09/19 12:58 100 ml ONETIME ONE Administration Lorazepam 0.5 mg 08/09/19 14:10 08/09/19 14:20 Ativan IVPUSH 08/09/19 14:11 0.5 mg ONETIME ONE Administration Ondansetron HCl 4 mg 08/09/19 12:21 08/09/19 12:35 Zofran IVPUSH 08/09/19 12:22 4 mg ONETIME ONE Administration - Re-Assessments/Exams Free Text/Narrative Re-Assessment/Exam: 08/09/19 13:18 I ordered an IV NS at 125mL/hr, zofran 4mg IV, dilaudid 1mg IV, labs and a CT angio of her chest. 08/09/19 17:15 Her WBC was elevated at 15.43. On the it was 10.4. Her total bili is elevated at 3.4. Her AST is elevated at 197 and ALT is 207. They were all normal on the 30. Her troponin is negative. Her UA shows no UTI. Her EKG shows a NSR with no acute changes. Her CT angio of her chest shows slightly abnormal appearing gallbladder. If patietn has correlating symptoms right upper quadrant abdominal US could be considered to further evaluated. No findings of PE. Nothing acute is otherwise is seen on CT study of the chest. The US shows slightly dilated gallbladder with sludge and gallbladder wall thickening with minimal pericholecystic fluid. No biliary duct dilatation is seen. Difficult to exclude acalculus cholecystitis at this time. No additional abnormality is seen on right upper quadrant abdominal US. I called Dr Willams and he asked if I could admit to the hospitalist service and he will see her tomorrow. She is allergic to many medications. I ordered flagyl and meropenem. I talked to Dr Davison and he agree to the admission. I have ordered dilaudid, ativan and valium to help with her pain. Departure - Departure Time of Disposition: 17:25 Disposition: Admitted As Inpatient 65 Clinical Impression: Cholecystitis - Discharge Information Sepsis Event Note - Evaluation Sepsis Screening Result: No Definite Risk - Focused Exam Vital Signs: Vital Signs Temp Pulse Resp BP Pulse Ox Pulse Ox 08/09/19 13:58 89 97 08/09/19 13:55 84 L 08/09/19 12:06 97 F 95 16 146/76 H 97 Date Exam was Performed: 08/09/19 Time Exam was Performed: 17:15 - My Orders Last 24 Hours: My Active Orders 08/09/19 12:21 Cardiac Monitoring [RC] . DIRECTED Peripheral IV Care [RC] . DIRECTED Sodium Chloride 0.9% [Saline Flush] 10 ml FLUSH ASDIRECTED PRN ED Antiemetic Medication Reflex [OM.PC] Stat Peripheral IV Insertion Adult [OM.PC] Stat 08/09/19 12:22 EKG Documentation Completion [RC] STAT 08/09/19 12:30 Sodium Chloride 0.9% [Normal Saline] 1,000 ml IV ASDIRECTED 08/09/19 16:18 Levofloxacin/Dextrose 5%-Water [Levaquin in D5W 750 MG/150 ML] 750 mg Premix Bag 1 bag IV ONETIME 08/09/19 16:32 metroNIDAZOLE/Normal Saline [Flagyl 500 MG in NS 100 ML] 500 mg Premix Bag 1 bag IV ONETIME 08/09/19 16:41 LACTIC ACID [CHEM] Stat 08/09/19 16:42 CULTURE BLOOD [BC] Stat CULTURE BLOOD [BC] Stat Blood Culture x2 Reflex Set [OM.PC] Stat 08/09/19 17:08 Patient Status [ADT] Routine - Assessment/Plan Last 24 Hours: My Active Orders 08/09/19 12:21 Cardiac Monitoring [RC] . DIRECTED Peripheral IV Care [RC] . DIRECTED Sodium Chloride 0.9% [Saline Flush] 10 ml FLUSH ASDIRECTED PRN ED Antiemetic Medication Reflex [OM.PC] Stat Peripheral IV Insertion Adult [OM.PC] Stat 08/09/19 12:22 EKG Documentation Completion [RC] STAT 08/09/19 12:30 Sodium Chloride 0.9% [Normal Saline] 1,000 ml IV ASDIRECTED 08/09/19 16:18 Levofloxacin/Dextrose 5%-Water [Levaquin in D5W 750 MG/150 ML] 750 mg Premix Bag 1 bag IV ONETIME 08/09/19 16:32 metroNIDAZOLE/Normal Saline [Flagyl 500 MG in NS 100 ML] 500 mg Premix Bag 1 bag IV ONETIME 08/09/19 16:41 LACTIC ACID [CHEM] Stat 08/09/19 16:42 CULTURE BLOOD [BC] Stat CULTURE BLOOD [BC] Stat Blood Culture x2 Reflex Set [OM.PC] Stat 08/09/19 17:08 Patient Status [ADT] Routine
--- NOTE | 2019-08-09 13:44 | CT ---
CT chest Technique: Multiple axial sections were obtained through the chest. Intravenous contrast was utilized. Study has been performed as a pulmonary angiogram protocol. Comparison: No prior CT chest study, chest x-ray of 09/20/09 is available. Findings: Pulmonary arteries are moderately well-opacified. No filling defects are seen to indicate pulmonary embolism. Aorta shows no aneurysm with minimal atherosclerotic calcification. Mediastinum and hilar region show no adenopathy. No pericardial thickening is seen. Lungs are clear with no acute parenchymal change. No pleural effusions are seen. Small nodule is noted within the right middle lobe most likely representing small parenchymal scar measuring 3 mm. Upper abdominal structures shows a dilated gallbladder with questionable mild gallbladder wall edema. No calcified gallstones are seen. Impression: 1. Slightly abnormal appearing gallbladder. If patient has correlating symptoms right upper quadrant abdominal ultrasound could be considered to further evaluate. 2. No findings of pulmonary embolism. Nothing acute is otherwise is seen on CT study of the chest. Diagnostic code #3 This report was dictated in [place] Standard Time
[2019-08-09] MEDS ORDERED: LORazepam 2 MG/ML SDV IVPUSH ONE (14:10)
[2019-08-09] MEDS ORDERED: HYDROmorphone 0.5 MG/0.5 ML Syringe IVPUSH ONE (15:17)
--- NOTE | 2019-08-09 16:12 | US ---
Limited abdominal ultrasound: Multiple real-time images of the upper right abdomen were obtained. Comparison: Previous chest CT showing slightly abnormal gallbladder performed earlier on the same day (1:06 PM). Findings: Liver contains no focal abnormality. Gallbladder is somewhat distended. Diffuse sludge is seen within the gallbladder. Gallbladder wall is thickened. Minimal pericholecystic fluid is seen. Several gallbladder polyps are appreciated. No biliary duct dilatation is seen. Right kidney shows no hydronephrosis or mass. Right kidney has a length of 11.2 cm. Pancreas is incompletely seen. Visualized portions of the pancreas appear within normal limits. Inferior vena cava is patent. Main portal vein shows normal hepatopedal flow. Impression: 1. Slightly dilated gallbladder with sludge and gallbladder wall thickening with minimal pericholecystic fluid. No biliary duct dilatation is seen. Difficult to exclude acalculus cholecystitis at this time. 2. No additional abnormality is seen on right upper quadrant abdominal ultrasound. Diagnostic code #3 This report was dictated in [place] Standard Time
[2019-08-09] MEDS ORDERED: Levofloxacin/Dextrose 5%-Water 750 MG in Premix Bag 1 BAG IV ONE (16:18)
[2019-08-09] MEDS ORDERED: metroNIDAZOLE/Normal Saline 500 MG in Premix Bag 1 BAG IV ONE (16:32)
[2019-08-09] MEDS ORDERED: Meropenem 1 GM in Sodium Chloride 0.9% 100 ML IV ONE (16:44)
--- NOTE | 2019-08-09 17:43 | PCM.HP.2 ---
H&P History of Present Illness - General Date of Service: 08/09/19 Admit Problem/Dx: Admission Diagnosis/Problem Admission Diagnosis/Problem Cholecystitis Source of Information: Patient, Family, Provider, RN Notes Reviewed History Limitations: Reports: No Limitations - History of Present Illness Initial Comments - Free Text/Narative: This is a 64 yo white female with past medical hx/o Glaucoma, AR, HTN, Recurrent PNA/Bronchitis, GERD, IBS, Urinary Incontinence, Hx/o Cystocele, Breast Pain, OA/DJD, Generalized Weakness, Migraines, Hypothyroidism, Hx/o Thyroid Nodule, Hx/o Enlarged Thyroid, Anemia, Eczema, Hx/o Hair Loss, Actinic Keratosis, Facial Flushing, Seborrheic Keratosis, Depression and Obesity Class I who presents to ED with complaints of non-radiating chest discomfort that started this morning. She describes her discomfort as cramp like in nature. She endorses nausea w/o emesis and a fever yesterday. She also reports having some abdominal pain after having undergone bladder sling and rectocele surgery this past Saturday. She reports no hematuria or dysuria. Her initial work up in ED shows a CBC remarkable for WBC of 15.43, RBC of 3.90, MCV of 97.9, RDW of 48, Neutrophils of 86.8%, Lymphocytes of 6.9%, Eosinophils of 0.5%, Neutrophils # of 13.40, Lymphocyte # of 1.07, and Monocyte # of 0.83. Her Chemistry is significant for Total Bilirubin of 13.3, AST of 97, ALT of 207 , CRP of 3.1, and Albumin of 3.3. He UA is negative for UTI. Her Initial troponin and EKG are both negative. Her chest CTA report read as slightly abnormal appearing gallbladder and no findings of PE. Her Abdominal US report read as slightly dilated gallbladder with sludge and gallbladder wall thickening within minimal pericholecystic fluid. Difficult to exclude acalculus cholecystitis. Patient is coming in primarily for further management of acalculus cholecystitis. Thoracic Pain Score (Numeric/FACES): 10 - Related Data Allergies/Adverse Reactions: Allergies Allergy/AdvReac Type Severity Reaction Status Date / Time brimonidine [From Simbrinza] Allergy Burning Verified 08/09/19 18:46 brinzolamide [From Simbrinza] Allergy Burning Verified 08/09/19 18:46 cephalexin Allergy Rash Verified 08/09/19 18:46 doxycycline Allergy Rash Verified 08/09/19 18:46 levothyroxine sodium Allergy Rash Verified 08/09/19 18:46 paroxetine [Paroxetine] Allergy Rash Verified 08/09/19 18:46 Penicillins Allergy Cannot Verified 08/09/19 18:46 Remember red dye Allergy Cannot Verified 08/09/19 18:46 Remember sulfamethoxazole Allergy Rash Verified 08/09/19 18:46 [From Bactrim] Tetanus Vaccines and Toxoid Allergy Hives Verified 08/09/19 18:46 [Tetanus Vaccines & Toxoid] trimethoprim [From Bactrim] Allergy Rash Verified 08/09/19 18:46 venom-honey bee Allergy Itching Verified 08/09/19 18:46 [bee venom (honey bee)] clarithromycin AdvReac metallic Verified 08/09/19 18:46 taste codeine AdvReac Headache Verified 08/09/19 18:46 fenofibrate AdvReac Muscle Verified 08/09/19 18:46 Weakness fluoxetine AdvReac Diarrhea Verified 08/09/19 18:46 levofloxacin AdvReac irregular Verified 08/09/19 18:46 heart beat oseltamivir [From Tamiflu] AdvReac Nausea Verified 08/09/19 18:46 venlafaxine AdvReac Vomiting Verified 08/09/19 18:46 wasps Allergy Anaphylactic Uncoded 08/09/19 18:46 Shock Home Medications: Home Meds Brimonidine Tartrate/Timolol [Combigan 0.2%-0.5% Eye Drops] 1 drop EYERT BID [History] Finasteride 1.25 mg PO DAILY 08/03/18 [History] Flunisolide [Nasalide Nasal [place]] 2 spray NASBOTH BID 08/03/18 [History] Levothyroxine 150 mcg PO ACBREAKFAST 08/03/18 [History] Omeprazole 40 mg PO DAILY 08/03/18 [History] Orphenadrine [Norflex] 100 mg PO BID PRN 08/03/18 [History] Spironolactone 150 mg PO DAILY 08/03/18 [History] Travoprost [Travatan Z] 1 drop EYERT BEDTIME 08/03/18 [History] estradioL [Estradiol] 1.5 mg PO DAILY 08/03/18 [History] valACYclovir HCl [Valtrex] 500 mg PO DAILY 08/03/18 [History] Cyanocobalamin (Vitamin B-12) [Vitamin B-12] 5,000 mcg PO DAILY 03/11/19 [ History] EPINEPHrine [Epipen] 0.3 mg IM ONETIME PRN 03/11/19 [History] Prednisolone Acetate/Pf [Prednisolone Acet 1% Eye Drop] 1 drop EYELF DAILY 08/07 [History] Acetaminophen/oxyCODONE [Percocet 325-5 MG] 2 tab PO Q6H PRN 08/09/19 [History] Betamethasone/Propylene Glyc [Betamethasone Dp Aug 0.05% Oin] 1 applic TOP BID PRN 08/09/19 [History] Biotin 10,000 mcg PO DAILY 08/09/19 [History] Calcium Citrate/Vitamin D3 [Calcium Citrate-Vit D3 Caplet] 1 tab PO DAILY [History] Cholecalciferol (Vitamin D3) [Vitamin D3] 1,000 unit PO DAILY 08/09/19 [History] Ferrous Sulfate 325 mg PO WEEKLY 08/09/19 [History] Ibuprofen 600 mg PO Q4H PRN 08/09/19 [History] Loratadine [Claritin] 10 mg PO DAILY PRN 08/09/19 [History] Multivit-Min/Iron/Folic/Lutein [Centrum Silver Women Tablet] 1 tab PO DAILY 12/22 [History] Ondansetron [Zofran ODT] 4 mg PO Q4H PRN 08/09/19 [History] Vitamin B6-pyridOXINE [Vitamin B6] 200 mg PO DAILY 08/09/19 [History] predniSONE [Prednisone] 20 - 40 mg PO ASDIRECTED PRN 08/09/19 [History] Losartan [Cozaar] 12.5 mg PO DAILY 08/11/19 [History] Non-Formulary Medication [NF Drug] 2,000 mg PO DAILY 08/11/19 [History] Past Medical History HEENT History: Reports: Allergic Rhinitis, Glaucoma Cardiovascular History: Reports: Hypertension, Other (See Below) Respiratory History: Reports: Bronchitis, Recurrent, Pneumonia, Recurrent Other Respiratory History: cough, lower respiratory infection Gastrointestinal History: Reports: GERD, Irritable Bowel Syndrome Other Gastrointestinal History: stomach malrotation Genitourinary History: Reports: Urinary Incontinence, Other (See Below) Other Genitourinary History: [employer] AIDE History: Reports: Other (See Below) Other OB/BYN History: breast pain Musculoskeletal History: Reports: Osteoarthritis Other Musculoskeletal History: generalized weakness Neurological History: Reports: Migraines Psychiatric History: Reports: Depression, Other (See Below) Endocrine/Metabolic History: Reports: Hypothyroidism, Obesity/BMI 30+ Other Endocrine/Metabolic History: enlarged thyroid, thyroid nodule Hematologic History: Reports: Anemia Immunologic History: Reports: None Oncologic (Cancer) History: Reports: None Dermatologic History: Reports: Eczema Other Dermatologic History: hair loss, actinic keratosis, facial flushing, seborrheic keratosis - Past Surgical History Head Surgeries/Procedures: Reports: None HEENT Surgical History: Reports: Cataract Surgery, Eye Surgery, Naso-Sinus Surgery, Oral Surgery Cardiovascular Surgical History: Reports: Aneurysm Respiratory Surgical History: Reports: None GI Surgical History: Reports: Appendectomy, Colonoscopy Female Surgical History: Reports: Hysterectomy Other Female Surgeries/Procedures: lumpectomy; fibrocystic breast, cystocele , rectocele, bladder sling Endocrine Surgical History: Reports: None Neurological Surgical History: Reports: None Musculoskeletal Surgical History: Reports: Carpal Tunnel, Other (See Below) Other Musculoskeletal Surgeries/Procedures:: foot surgery Oncologic Surgical History: Reports: Biopsy of Breast Dermatological Surgical History: Reports: Other (See Below) Social & Family History - Tobacco Use Smoking Status *Q: Never Smoker Second Hand Smoke Exposure: No - Caffeine Use Caffeine Use: Reports: Coffee - Recreational Drug Use Recreational Drug Use: No - Living Situation & Occupation Living situation: Reports: , with Spouse Occupation: Retired H&P Review of Systems - Review of Systems: Review Of Systems: Comprehensive ROS is negative, except as noted in HPI. Exam - Exam Exam: See Below - Vital Signs Vital Signs: Last Vital Signs Temp 36.1 C 08/09/19 12:06 Pulse 89 08/09/19 13:58 Resp 16 08/09/19 12:06 BP 146/76 H 08/09/19 12:06 Pulse Ox 97 08/09/19 13:58 Weight: 86.183 kg - Exam General: Cooperative, Sedated. No: Mild Distress HEENT: Conjunctiva Clear, EACs Clear, Hearing Intact, Mucosa Moist & [place], Nares Patent, Normal Nasal Septum, Posterior Pharynx Clear, Pupils Equal, Pupils Reactive Neck: Supple, Trachea Midline Lungs: Clear to Auscultation, Normal Respiratory Effort Cardiovascular: Regular Rate, Regular Rhythm GI/Abdominal Exam: Normal Bowel Sounds, Soft, No Organomegaly, No Distention, No Abnormal Bruit, Tender (diffuse due to spasm), Other (Positive for RUQ) (Female) Exam: Deferred Rectal (Female) Exam: Deferred Back Exam: Normal Inspection, Decreased Range of Motion Extremities: Normal Inspection, Normal Range of Motion, Non-Tender, No Pedal Edema, Normal Capillary Refill Peripheral Pulses: 2+: Posterior Tibial (L), Posterior Tibial (R), Dorsalis Pedis (L), Dorsalis Pedis (R) Skin: Warm, Dry, Intact Neuro Extensive - Mental Status: Oriented x3, Normal Cognition, Memory Intact Neuro Extensive - Motor, Sensory, Reflexes: CN II-XII Intact (limited but grossly intact) Psychiatric: Alert, Normal Affect, Normal Mood - Patient Data Lab Results Last 24 hrs: Laboratory Results - last 24 hr 08/09/19 08/09/19 08/09/19 Range/Units 12:35 12:35 13:23 WBC 15.43 H (3.98-10.04) K/mm3 RBC 3.90 L (3.98-5.22) M/mm3 Hgb 12.5 (11.2-15.7) gm/dl Hct 38.2 (34.1-44.9) % MCV 97.9 H (79.4-94.8) fl MCH 32.1 (25.6-32.2) pg MCHC 32.7 (32.2-35.5) g/dl RDW Std Deviation 48.0 H (36.4-46.3) fL Plt Count 305 (182-369) K/mm3 MPV 10.1 (9.4-12.3) fl Neut % (Auto) 86.8 H (34.0-71.1) % Lymph % (Auto) 6.9 L (19.3-51.7) % [place] % (Auto) 5.4 (4.7-12.5) % Eos % (Auto) 0.5 L (0.7-5.8) Baso % (Auto) 0.2 (0.1-1.2) % Neut # (Auto) 13.40 H (1.56-6.13) K/mm3 Lymph # (Auto) 1.07 L (1.18-3.74) K/mm3 [place] # (Auto) 0.83 H (0.24-0.36) K/mm3 Eos # (Auto) 0.07 (0.04-0.36) K/mm3 Baso # (Auto) 0.03 (0.01-0.08) K/mm3 Manual Slide Review Abnormal smear Sodium 139 (136-145) mEq/L Potassium 4.0 (3.5-5.1) mEq/L Chloride 103 (98-107) mEq/L Carbon Dioxide 25 (21-32) mEq/L Anion Gap 15.0 (5-15) BUN 12 (7-18) mg/dL Creatinine 0.9 (0.55-1.02) mg/dL Est Cr Clr Drug Dosing 53.81 mL/min Estimated GFR (MDRD) > 60 (>60) mL/min BUN/Creatinine Ratio 13.3 L (14-18) Glucose 108 (80-115) mg/dL Calcium 9.4 (8.5-10.1) mg/dL Total Bilirubin 3.4 H (0.2-1.0) mg/dL AST 197 H (15-37) U/L ALT 207 H (14-59) U/L Alkaline Phosphatase 111 (46-116) U/L Troponin I < 0.017 (0.00-0.056) ng/mL Total Protein 6.8 (6.4-8.2) g/dl Albumin 3.3 L (3.4-5.0) g/dl Globulin 3.5 gm/dL Albumin/Globulin Ratio 0.9 L (1-2) Urine Color Yellow (Yellow) Urine Appearance Clear (Clear) Urine pH 6.0 (5.0-8.0) Ur Specific [place] 1.015 (1.005-1.030) Urine Protein Negative (Negative) Urine Glucose (UA) Negative (Negative) Urine Ketones Negative (Negative) Urine Occult Blood 2+ H (Negative) Urine Nitrite Negative (Negative) Urine Bilirubin Negative (Negative) Urine Urobilinogen 0.2 (0.2-1.0) Ur Leukocyte Esterase 1+ H (Negative) Urine RBC 10-20 H (0-5) /hpf Urine WBC 0-5 (0-5) /hpf Ur Squamous Epith Cells 0-5 (0-5) /hpf Urine Bacteria Rare (FEW) /hpf Urine Mucus Not seen (FEW) /hpf Result Diagrams: 08/11/19 06:04 08/11/19 06:04 Sepsis Event Note - Evaluation Sepsis Screening Result: No Definite Risk - Focused Exam Vital Signs: Vital Signs Temp Pulse Resp BP Pulse Ox Pulse Ox 08/09/19 13:58 89 97 08/09/19 13:55 84 L 08/09/19 12:06 36.1 C 95 16 146/76 H 97 Date Exam was Performed: 08/11/19 Time Exam was Performed: 14:53 Problem List Initiated/Reviewed/Updated: Yes Orders Last 24hrs: Active Orders 24 hr Category Date Time Status Patient Status [ADT] Routine ADT 08/09/19 17:08 Active Notify Provider Consults [RC] ASDIRECTED Care 08/09/19 17:24 Active Consult to Physician [CONS] Routine Cons 08/09/19 17:23 Active CULTURE BLOOD [BC] Stat Lab 08/09/19 17:00 Received CULTURE BLOOD [BC] Stat Lab 08/09/19 17:25 Received LACTIC ACID [CHEM] Stat Lab 08/09/19 17:25 Received Levofloxacin/Dextrose 5%-Water [Levaquin in D5W 750 MG/ Med 08/09/19 16:18 Active 150 ML] 750 mg Premix Bag 1 bag IV ONETIME Sodium Chloride 0.9% [Normal Saline] 1,000 ml Med 08/09/19 12:30 Active IV ASDIRECTED Sodium Chloride 0.9% [Saline Flush] Med 08/09/19 12:21 Active 10 ml FLUSH ASDIRECTED PRN Blood Culture x2 Reflex Set [OM.PC] Stat Oth 08/09/19 16:42 Ordered ED Antiemetic Medication Reflex [OM.PC] Stat Oth 08/09/19 12:21 Ordered Peripheral IV Insertion Adult [OM.PC] Stat Oth 08/09/19 12:21 Ordered Medication Orders Sodium Chloride (Normal Saline) 1,000 mls @ 125 mls/hr IV ASDIRECTED MOHINDER Last Admin: 08/09/19 12:40 Dose: 125 mls/hr Levofloxacin/Dextrose 750 mg/ (Premix) 150 mls @ 100 mls/hr IV ONETIME ONE Stop: 08/09/19 17:47 Last Admin: 08/09/19 16:45 Dose: Not Given Sodium Chloride (Saline Flush) 10 ml FLUSH ASDIRECTED PRN PRN Reason: Keep Vein Open Last Admin: 08/09/19 12:40 Dose: 10 ml Assessment/Plan Comment:: Acute: Acalculus Cholecystitis. This is an abnormal finding noted on chest CTA and Abdominal US. Dr. Hines was consulted in ED by Dr. Durham. She received IV Flagyl and Meropenem in ED. Will continue antibiotics plus NPO for possible surgical intervention. Leukocytosis with WBC of 15.43 and Neutrophils # of 13.40. This 2/2 above. Treat underlying cause. Hyperbiluribinemia. Total Bili of 3.4. No obvious signs of jaundice. This is likely related to above. Will monitor. Transaminitis. AST of 197 and ALT of 207. Likely 2/2 above. Hold statin, avoid acetaminophen, and monitor levels. Chest Pain r/o ACS. Initial Troponin and EKG were negative. Plan: Serial troponin and EKG. Lipid Panel in AM. Hypoalbuminemia. Albumin of 3.3 Dietary consult for low protein state when she is PO meals. Obesity Class I. BMI of 32.6. Dietary consult for weight management when appropriate. S/p Bladder Sling and Rectocele Surgery, Stable Chronic: Glaucoma, AR, HTN, Recurrent PNA/Bronchitis, GERD, IBS, Urinary Incontinence, Hx/o Cystocele, Breast Pain, OA/DJD, Generalized Weakness, Migraines, Hypothyroidism, Hx/o Thyroid Nodule, Hx/o Enlarged Thyroid, Anemia, Eczema, Hx/o Hair Loss, Actinic Keratosis, Facial Flushing, Seborrheic Keratosis , Depression and Obesity Class I Plan: Admit to [facility]SP. IVF fluids and antibiotics. NPO for now. Routine AM Labs. Monitor for Sepsis. PRN pain medications. GS already consulted in ED. DVT/ Stroke Prophylaxis. Code status is full. - Mortality Measure Prognosis:: Good
[2019-08-09] MEDS ORDERED: Promethazine 6.25 MG in Sodium Chloride 0.9% 50 ML IV PRN (17:46)
[2019-08-09] MEDS ORDERED: Temazepam 7.5 MG Cap PO PRN (17:46)
[2019-08-09] MEDS ORDERED: Albuterol/Ipratropium 3.0-0.5 MG/3 ML Neb Soln NEB PRN (17:46)
[2019-08-09] MEDS ORDERED: Ondansetron 4 MG/2 ML SDV IV PRN (17:46)
[2019-08-09] MEDS: HYDROmorphone 0.5 MG/0.5 ML Syringe IVPUSH PRN ×2 (18:12→20:34)
[2019-08-09] MEDS: Lactated Ringers 1,000 ML IV SCH ×2 (18:12→18:51)
[2019-08-09] MEDS: Meropenem Premix 500 MG in Premix Bag 1 BAG IV SCH (20:34)
[2019-08-09] MEDS: Ketorolac 30 MG/ML SDV IV PRN (22:40)
[2019-08-10] MEDS ORDERED: Meropenem 1 GM in Sodium Chloride 0.9% 100 ML IV SCH ×2
[2019-08-10] MEDS: HYDROmorphone 0.5 MG/0.5 ML Syringe IVPUSH PRN ×8 (00:29→21:28)
[2019-08-10] MEDS: Meropenem Premix 500 MG in Premix Bag 1 BAG IV SCH ×4 (02:21→19:50)
[2019-08-10] MEDS: metroNIDAZOLE/Normal Saline 500 MG in Premix Bag 1 BAG IV SCH ×3 (02:52→19:50)
[2019-08-10] MEDS: Ketorolac 30 MG/ML SDV IV PRN (05:34)
--- NOTE | 2019-08-10 09:45 | PCM.PN ---
- General Info Date of Service: 08/10/19 Admission Dx/Problem (Free Text): Admission Diagnosis/Problem Admission Diagnosis/Problem Cholecystitis Subjective Update: She rested fairly well. Her pain is controlled. She has been seen and evaluated by Dr. Hines and she is to go for surgery sometime today. Functional Status: Reports: Pain Controlled, Tolerating Diet, Ambulating, Urinating - Review of Systems General: Denies: Fever, Chills HEENT: Reports: No Symptoms Pulmonary: Denies: Shortness of Breath Cardiovascular: Denies: Chest Pain, Dyspnea on Exertion, Lightheadedness Gastrointestinal: Reports: Nausea, Other (abdominal fullness). Denies: Abdominal Pain, Vomiting Genitourinary: Reports: No Symptoms Musculoskeletal: Reports: Joint Pain, Other (muscle cramps) Skin: Denies: Jaundice, Bruising, Rash Neurological: Denies: Confusion, Numbness, Trouble Speaking, Weakness Psychiatric: Denies: Depression, Anxiety, Agitation, Hallucinations - Patient Data Vitals - Most Recent: Last Vital Signs Temp 36.7 C 08/10/19 08:00 Pulse 99 08/10/19 08:00 Resp 16 08/10/19 08:00 BP 142/66 H 08/10/19 08:00 Pulse Ox 99 08/10/19 08:00 Weight - Most Recent: 86.364 kg I&O - Last 24 Hours: Intake & Output 08/09/19 08/10/19 08/10/19 22:59 06:59 14:59 Intake Total 713 Output Total 1100 Balance -387 Lab Results Last 24 Hours: Laboratory Results - last 24 hr 08/09/19 08/09/19 08/09/19 Range/Units 12:35 12:35 12:35 WBC 15.43 H (3.98-10.04) K/mm3 RBC 3.90 L (3.98-5.22) M/mm3 Hgb 12.5 (11.2-15.7) gm/dl Hct 38.2 (34.1-44.9) % MCV 97.9 H (79.4-94.8) fl MCH 32.1 (25.6-32.2) pg MCHC 32.7 (32.2-35.5) g/dl RDW Std Deviation 48.0 H (36.4-46.3) fL Plt Count 305 (182-369) K/mm3 MPV 10.1 (9.4-12.3) fl Neut % (Auto) 86.8 H (34.0-71.1) % Lymph % (Auto) 6.9 L (19.3-51.7) % [place] % (Auto) 5.4 (4.7-12.5) % Eos % (Auto) 0.5 L (0.7-5.8) Baso % (Auto) 0.2 (0.1-1.2) % Neut # (Auto) 13.40 H (1.56-6.13) K/mm3 Lymph # (Auto) 1.07 L (1.18-3.74) K/mm3 [place] # (Auto) 0.83 H (0.24-0.36) K/mm3 Eos # (Auto) 0.07 (0.04-0.36) K/mm3 Baso # (Auto) 0.03 (0.01-0.08) K/mm3 Manual Slide Review Abnormal smear Sodium 139 (136-145) mEq/L Potassium 4.0 (3.5-5.1) mEq/L Chloride 103 (98-107) mEq/L Carbon Dioxide 25 (21-32) mEq/L Anion Gap 15.0 (5-15) BUN 12 (7-18) mg/dL Creatinine 0.9 (0.55-1.02) mg/dL Est Cr Clr Drug Dosing 53.81 mL/min Estimated GFR (MDRD) > 60 (>60) mL/min BUN/Creatinine Ratio 13.3 L (14-18) Glucose 108 (80-115) mg/dL Lactic Acid (0.4-2.0) mmol/L Calcium 9.4 (8.5-10.1) mg/dL Magnesium (1.8-2.4) mg/dl Total Bilirubin 3.4 H (0.2-1.0) mg/dL AST 197 H (15-37) U/L ALT 207 H (14-59) U/L Alkaline Phosphatase 111 (46-116) U/L CK-MB (CK-2) (0-3.6) ng/ml Troponin I < 0.017 (0.00-0.056) ng/mL C-Reactive Protein 3.1 H* (<1.0) mg/dL Total Protein 6.8 (6.4-8.2) g/dl Albumin 3.3 L (3.4-5.0) g/dl Globulin 3.5 gm/dL Albumin/Globulin Ratio 0.9 L (1-2) Triglycerides (<150) mg/dL Cholesterol (<200) mg/dL LDL Cholesterol Direct (<100) mg/dL HDL Cholesterol (40-59) mg/dL Urine Color (Yellow) Urine Appearance (Clear) Urine pH (5.0-8.0) Ur Specific [place] (1.005-1.030) Urine Protein (Negative) Urine Glucose (UA) (Negative) Urine Ketones (Negative) Urine Occult Blood (Negative) Urine Nitrite (Negative) Urine Bilirubin (Negative) Urine Urobilinogen (0.2-1.0) Ur Leukocyte Esterase (Negative) Urine RBC (0-5) /hpf Urine WBC (0-5) /hpf Ur Squamous Epith Cells (0-5) /hpf Urine Bacteria (FEW) /hpf Urine Mucus (FEW) /hpf 08/09/19 08/09/19 08/10/19 Range/Units 13:23 17:25 00:25 WBC (3.98-10.04) K/mm3 RBC (3.98-5.22) M/mm3 Hgb (11.2-15.7) gm/dl Hct (34.1-44.9) % MCV (79.4-94.8) fl MCH (25.6-32.2) pg MCHC (32.2-35.5) g/dl RDW Std Deviation (36.4-46.3) fL Plt Count (182-369) K/mm3 MPV (9.4-12.3) fl Neut % (Auto) (34.0-71.1) % Lymph % (Auto) (19.3-51.7) % [place] % (Auto) (4.7-12.5) % Eos % (Auto) (0.7-5.8) Baso % (Auto) (0.1-1.2) % Neut # (Auto) (1.56-6.13) K/mm3 Lymph # (Auto) (1.18-3.74) K/mm3 [place] # (Auto) (0.24-0.36) K/mm3 Eos # (Auto) (0.04-0.36) K/mm3 Baso # (Auto) (0.01-0.08) K/mm3 Manual Slide Review Sodium (136-145) mEq/L Potassium (3.5-5.1) mEq/L Chloride (98-107) mEq/L Carbon Dioxide (21-32) mEq/L Anion Gap (5-15) BUN (7-18) mg/dL Creatinine (0.55-1.02) mg/dL Est Cr Clr Drug Dosing mL/min Estimated GFR (MDRD) (>60) mL/min BUN/Creatinine Ratio (14-18) Glucose (80-115) mg/dL Lactic Acid 1.3 (0.4-2.0) mmol/L Calcium (8.5-10.1) mg/dL Magnesium (1.8-2.4) mg/dl Total Bilirubin (0.2-1.0) mg/dL AST (15-37) U/L ALT (14-59) U/L Alkaline Phosphatase (46-116) U/L CK-MB (CK-2) 0.5 (0-3.6) ng/ml Troponin I < 0.017 (0.00-0.056) ng/mL C-Reactive Protein (<1.0) mg/dL Total Protein (6.4-8.2) g/dl Albumin (3.4-5.0) g/dl Globulin gm/dL Albumin/Globulin Ratio (1-2) Triglycerides (<150) mg/dL Cholesterol (<200) mg/dL LDL Cholesterol Direct (<100) mg/dL HDL Cholesterol (40-59) mg/dL Urine Color Yellow (Yellow) Urine Appearance Clear (Clear) Urine pH 6.0 (5.0-8.0) Ur Specific [place] 1.015 (1.005-1.030) Urine Protein Negative (Negative) Urine Glucose (UA) Negative (Negative) Urine Ketones Negative (Negative) Urine Occult Blood 2+ H (Negative) Urine Nitrite Negative (Negative) Urine Bilirubin Negative (Negative) Urine Urobilinogen 0.2 (0.2-1.0) Ur Leukocyte Esterase 1+ H (Negative) Urine RBC 10-20 H (0-5) /hpf Urine WBC 0-5 (0-5) /hpf Ur Squamous Epith Cells 0-5 (0-5) /hpf Urine Bacteria Rare (FEW) /hpf Urine Mucus Not seen (FEW) /hpf 08/10/19 08/10/19 08/10/19 Range/Units 05:31 05:31 05:31 WBC 11.67 H (3.98-10.04) K/mm3 RBC 3.38 L (3.98-5.22) M/mm3 Hgb 11.0 L D (11.2-15.7) gm/dl Hct 33.5 L (34.1-44.9) % MCV 99.1 H (79.4-94.8) fl MCH 32.5 H (25.6-32.2) pg MCHC 32.8 (32.2-35.5) g/dl RDW Std Deviation 48.6 H (36.4-46.3) fL Plt Count 276 (182-369) K/mm3 MPV 10.5 (9.4-12.3) fl Neut % (Auto) 76.1 H (34.0-71.1) % Lymph % (Auto) 15.5 L (19.3-51.7) % [place] % (Auto) 6.8 (4.7-12.5) % Eos % (Auto) 1.1 (0.7-5.8) Baso % (Auto) 0.2 (0.1-1.2) % Neut # (Auto) 8.89 H (1.56-6.13) K/mm3 Lymph # (Auto) 1.81 (1.18-3.74) K/mm3 [place] # (Auto) 0.79 H (0.24-0.36) K/mm3 Eos # (Auto) 0.13 (0.04-0.36) K/mm3 Baso # (Auto) 0.02 (0.01-0.08) K/mm3 Manual Slide Review Sodium 140 (136-145) mEq/L Potassium 3.8 (3.5-5.1) mEq/L Chloride 104 (98-107) mEq/L Carbon Dioxide 26 (21-32) mEq/L Anion Gap 13.8 (5-15) BUN 14 (7-18) mg/dL Creatinine 0.8 (0.55-1.02) mg/dL Est Cr Clr Drug Dosing 60.54 mL/min Estimated GFR (MDRD) > 60 (>60) mL/min BUN/Creatinine Ratio 17.5 (14-18) Glucose 101 (80-115) mg/dL Lactic Acid (0.4-2.0) mmol/L Calcium 8.4 L (8.5-10.1) mg/dL Magnesium 1.9 (1.8-2.4) mg/dl Total Bilirubin 0.9 (0.2-1.0) mg/dL AST 77 H (15-37) U/L ALT 140 H (14-59) U/L Alkaline Phosphatase 94 (46-116) U/L CK-MB (CK-2) < 0.5 (0-3.6) ng/ml Troponin I < 0.017 (0.00-0.056) ng/mL C-Reactive Protein 10.9 H* (<1.0) mg/dL Total Protein 5.8 L (6.4-8.2) g/dl Albumin 2.7 L (3.4-5.0) g/dl Globulin 3.1 gm/dL Albumin/Globulin Ratio 0.9 L (1-2) Triglycerides 167 H (<150) mg/dL Cholesterol 152 (<200) mg/dL LDL Cholesterol Direct 71 (<100) mg/dL HDL Cholesterol 51.0 (40-59) mg/dL Urine Color (Yellow) Urine Appearance (Clear) Urine pH (5.0-8.0) Ur Specific [place] (1.005-1.030) Urine Protein (Negative) Urine Glucose (UA) (Negative) Urine Ketones (Negative) Urine Occult Blood (Negative) Urine Nitrite (Negative) Urine Bilirubin (Negative) Urine Urobilinogen (0.2-1.0) Ur Leukocyte Esterase (Negative) Urine RBC (0-5) /hpf Urine WBC (0-5) /hpf Ur Squamous Epith Cells (0-5) /hpf Urine Bacteria (FEW) /hpf Urine Mucus (FEW) /hpf Med Orders - Current: Current Medications Acetaminophen (Tylenol) 650 mg PO Q4H PRN PRN Reason: Pain (Mild 1-3)/fever Albuterol/Ipratropium (Duoneb 3.0-0.5 Mg/3 Ml) 3 ml NEB Q4H PRN PRN Reason: Shortness Of Breath/wheezing Enoxaparin Sodium (Lovenox) 40 mg SUBCUT DAILY [facility] Hydromorphone HCl (Dilaudid) 0.5 mg IVPUSH Q2H PRN PRN Reason: Pain (severe 7-10) Last Admin: 08/10/19 07:33 Dose: 0.5 mg Promethazine HCl 6.25 mg/ (Sodium Chloride) 50.25 mls @ 100 mls/hr IV Q6H PRN PRN Reason: Nausea/Vomiting Metronidazole 500 mg/ Premix 100 mls @ 100 mls/hr IV Q8H [facility] Last Admin: 08/10/19 02:52 Dose: 100 mls/hr Meropenem/Sodium Chloride 500 (mg/ Premix) 50 mls @ 100 mls/hr IV Q6H [facility] Last Admin: 08/10/19 08:51 Dose: 100 mls/hr Lactated Ringer's (Ringers, Lactated) 1,000 mls @ 75 mls/hr IV ASDIRECTED [facility] Ketorolac Tromethamine (Toradol) 30 mg IV Q6H PRN PRN Reason: Pain (moderate 4-6) Last Admin: 08/10/19 05:34 Dose: 30 mg Ondansetron HCl (Zofran) 4 mg IV Q6H PRN PRN Reason: Nausea/Vomiting Scopolamine (Transderm-Scop) 1.5 mg TOP ONETIME ONE Stop: 08/10/19 11:01 Sodium Chloride (Saline Flush) 10 ml FLUSH ASDIRECTED PRN PRN Reason: Keep Vein Open Last Admin: 08/09/19 12:40 Dose: 10 ml Temazepam (Restoril) 7.5 mg PO BEDTIME PRN PRN Reason: Sleep Discontinued Medications Diazepam (Valium) 5 mg IVPUSH ONETIME ONE Stop: 08/09/19 16:49 Last Admin: 08/09/19 16:55 Dose: 5 mg Hydromorphone HCl (Dilaudid) 1 mg IVPUSH ONETIME ONE Stop: 08/09/19 12:23 Last Admin: 08/09/19 12:37 Dose: 1 mg Hydromorphone HCl (Dilaudid) 0.5 mg IVPUSH ONETIME ONE Stop: 08/09/19 15:18 Last Admin: 08/09/19 15:29 Dose: 0.5 mg Sodium Chloride (Normal Saline) 1,000 mls @ 125 mls/hr IV ASDIRECTED [facility] Last Admin: 08/09/19 12:40 Dose: 125 mls/hr Sodium Chloride (Normal Saline) 100 mls @ 4 mls/sec IV ONETIME ONE Stop: 08/09/19 12:58 Last Admin: 08/09/19 13:21 Dose: 4 mls/sec Levofloxacin/Dextrose 750 mg/ (Premix) 150 mls @ 100 mls/hr IV ONETIME ONE Stop: 08/09/19 17:47 Last Admin: 08/09/19 16:45 Dose: Not Given Metronidazole 500 mg/ Premix 100 mls @ 100 mls/hr IV ONETIME ONE Stop: 08/09/19 17:31 Last Admin: 08/09/19 17:43 Dose: 100 mls/hr Meropenem 1 gm/ Sodium (Chloride) 100 mls @ 200 mls/hr IV ONETIME ONE Stop: 08/09/19 17:13 Last Admin: 08/09/19 18:46 Dose: Not Given Meropenem 1 gm/ Sodium (Chloride) 100 mls @ 200 mls/hr IV Q8H [facility] Lactated Ringer's (Ringers, Lactated) 1,000 mls @ 50 mls/hr IV ASDIRECTED [facility] Last Admin: 08/09/19 18:51 Dose: 50 mls/hr Iopamidol (Isovue-370 (76%)) 100 ml IVPUSH ONETIME ONE Stop: 08/09/19 12:58 Last Admin: 08/09/19 13:21 Dose: 100 ml Lorazepam (Ativan) 0.5 mg IVPUSH ONETIME ONE Stop: 08/09/19 14:11 Last Admin: 08/09/19 14:20 Dose: 0.5 mg Ondansetron HCl (Zofran) 4 mg IVPUSH ONETIME ONE Stop: 08/09/19 12:22 Last Admin: 08/09/19 12:35 Dose: 4 mg - Exam General: Alert, Oriented, Cooperative, No Acute Distress HEENT: Pupils Equal, Pupils Reactive, EOMI, Mucous Membr. Moist/[place]: Supple Lungs: Clear to Auscultation, Normal Respiratory Effort Cardiovascular: Regular Rate, Regular Rhythm GI/Abdominal Exam: Normal Bowel Sounds, Soft, Non-Tender, No Organomegaly, No Distention, No Abnormal Bruit (Female) Exam: Deferred Back Exam: Normal Inspection, Decreased Range of Motion Extremities: Normal Inspection, Normal Range of Motion, Non-Tender, No Pedal Edema, Normal Capillary Refill Peripheral Pulses: 2+: Posterior Tibial (L), Posterior Tibial (R), Dorsalis Pedis (L), Dorsalis Pedis (R) Skin: Warm, Dry, Intact Neurological: No New Focal Deficit Psy/Mental Status: Alert, Normal Affect, Normal Mood EKG INTERPRETATION EKG Date: 08/10/19 Time: 07:22 Rhythm: Other (Sinus Rhythm) [place]: LAD-Left [place] Deviation P-Wave: Present QRS: Normal ST-T: Normal QT: Normal EKG Interpretation Comments: LVH Sepsis Event Note - Evaluation Sepsis Screening Result: No Definite Risk - Focused Exam Vital Signs: Vital Signs Temp Temp Pulse Pulse Resp BP BP 08/10/19 08:00 36.7 C 99 16 142/66 H 08/10/19 04:08 36.6 C 89 17 142/71 H 08/10/19 00:34 36.8 C 86 17 140/80 Pulse Ox 08/10/19 08:00 99 08/10/19 04:08 98 08/10/19 00:34 99 Date Exam was Performed: 08/11/19 Time Exam was Performed: 14:56 - Problem List Review Problem List Initiated/Reviewed/Updated: Yes - My Orders Last 24 Hours: My Active Orders 08/09/19 12:35 PROCALCITONIN [REF] Stat 08/09/19 17:46 Height and Weight [RC] 04 Oxygen Therapy [RC] PRN Up ad [place] [RC] ASDIRECTED VTE/DVT Education [RC] BID Vital Signs [RC] Q4HR Consult to Case Management/Restaurant Culinary Manager [CONS] Routine Consult to Automatic Spinning Lathe Setter [CONS] Routine Consult to Spiritual Care [CONS] Routine OT Evaluation and Treatment [CONS] Routine PT Evaluation and Treatment [CONS] Routine Acetaminophen [Tylenol] 650 mg PO Q4H PRN Albuterol/Ipratropium [DuoNeb 3.0-0.5 MG/3 ML] 3 ml NEB Q4H PRN HYDROmorphone [Dilaudid] 0.5 mg IVPUSH Q2H PRN Ketorolac [Toradol] 30 mg IV Q6H PRN Ondansetron [Zofran] 4 mg IV Q6H PRN Promethazine [Phenergan] 6.25 mg Sodium Chloride 0.9% [Normal Saline] 50 ml IV Q6H Temazepam [Restoril] 7.5 mg PO BEDTIME PRN Resuscitation Status Routine 08/09/19 17:47 Cardiac Monitoring [RC] CONTINUOUS Intake and Output [RC] 04,16 08/09/19 17:50 RT Aerosol Therapy [RC] ASDIRECTED 08/09/19 20:00 Meropenem Premix [Meropenem] 500 mg Premix Bag 1 bag IV Q6H 08/09/19 Dinner Nothing per Oral Now Diet [DIET] 08/10/19 02:00 metroNIDAZOLE/Normal Saline [Flagyl 500 MG in NS 100 ML] 500 mg Premix Bag 1 bag IV Q8H 08/10/19 07:00 EKG Documentation Completion [RC] ASDIRECTED EKG 12 Lead [EK] Routine 08/10/19 09:00 Enoxaparin [Lovenox] 40 mg SUBCUT DAILY 08/11/19 05:11 C-REACTIVE PROTEIN [CHEM] AM CBC WITH AUTO DIFF [HEME] AM COMPREHENSIVE METABOLIC PN,CMP [CHEM] AM MAGNESIUM [CHEM] AM 08/12/19 05:11 C-REACTIVE PROTEIN [CHEM] AM CBC WITH AUTO DIFF [HEME] AM COMPREHENSIVE METABOLIC PN,CMP [CHEM] AM MAGNESIUM [CHEM] AM 08/13/19 05:11 C-REACTIVE PROTEIN [CHEM] AM CBC WITH AUTO DIFF [HEME] AM COMPREHENSIVE METABOLIC PN,CMP [CHEM] AM MAGNESIUM [CHEM] AM 08/14/19 05:11 C-REACTIVE PROTEIN [CHEM] AM CBC WITH AUTO DIFF [HEME] AM COMPREHENSIVE METABOLIC PN,CMP [CHEM] AM MAGNESIUM [CHEM] AM 08/15/19 05:11 C-REACTIVE PROTEIN [CHEM] AM CBC WITH AUTO DIFF [HEME] AM COMPREHENSIVE METABOLIC PN,CMP [CHEM] AM MAGNESIUM [CHEM] AM 08/16/19 05:11 C-REACTIVE PROTEIN [CHEM] AM CBC WITH AUTO DIFF [HEME] AM COMPREHENSIVE METABOLIC PN,CMP [CHEM] AM MAGNESIUM [CHEM] AM - Plan Plan:: Acute: [place] Cholecystitis. This is an abnormal findings noted on chest CTA and Abdominal US. Dr. Hines was consulted in ED by Dr. [place]. She received IV Flagyl and Meropenem in ED. Defer antibiotics to Dr. Hines. She is scheduled for surgery today. PO meal as per Dr. Hines. Leukocytosis with WBC of 15.43-->11.67 and Neutrophils # of 13.40-->8.89. This is 2/2 above, Improved. Treat underlying cause. Transaminitis. AST or 197-->77 and ALT of 207-->140, Improving. Likely 2/2 above. Hold statin, avoid acetaminophen, and monitor levels. Hypertriglyceridemia as lipid panel. Intolerant to statin but on [place]-3 supplement. Will continue once po meal. Hypoalbuminemia. Albumin of 3.3-->2.7. Dietary consult for low protein state once PO meals. Obesity Class I. BMI of 32.6. Dietary consult for weight management when appropriate. Resolved: S/p Chest Pain r/o ACS. Serial Troponin and EKG were all negative. Lipid Panel- shows dyslipidemia. S/p Bladder Sling and Rectocele Surgery, Stable S/p Hyperbiluribinemia. Total Bili of 3.4-->0.9. No obvious signs of jaundice. This is likely related to above. Will monitor. Chronic: Glaucoma, [place], HTN, Recurrent PNA/Bronchitis, GERD, IBS, Urinary Incontinence, Hx/o Cystocele, Breast Pain, OA/DJD, Generalized Weakness, Migraines, Hypothyroidism, Hx/o Thyroid Nodule, Hx/o Enlarged Thyroid, Anemia, Eczema, Hx/o Hair Loss, Actinic Keratosis, Facial Flushing, Seborrheic Keratosis , Depression and Obesity Class I Plan: She will have surgery today to remove her gall bladder. Continue IVF fluids and antibiotics as per General Surgery. Routine AM Labs. Monitor for Sepsis. PRN pain medications. Dr. Hines following. DVT/Stroke Prophylaxis. Code status is full.
--- NOTE | 2019-08-10 09:48 | PCM.PREANE ---
Preanesthetic Assessment - Anesthesia/Transfusion/Family Hx Anesthesia History: Prior Anesthesia Without Reaction Family History of Anesthesia Reaction: No Transfusion History: No Prior Transfusion(s) Intubation History: Unknown - Review of Systems General: No Symptoms Pulmonary: No Symptoms Cardiovascular: No Symptoms, Other (Palpatations "occasional", hypertension, elevated cholesterol) Gastrointestinal: Other (GERD controlled with medications (flipped stomach)) Neurological: Headache (Migraines), Other (Vertigo, Motion Sickness) Other: Reports: Easy Bruising, Thyroid Problems (Hypothyroidism), Neck Pain ( Related to her fibromyalgia. Jaw sore following previous anesthetic more on the left side. ) - Physical Assessment NPO Status Date: 08/09/19 NPO Status Time: 12:00 Vital Signs: Last Vital Signs Temp 36.7 C 08/10/19 08:00 Pulse 99 08/10/19 08:00 Resp 16 08/10/19 08:00 BP 142/66 H 08/10/19 08:00 Pulse Ox 99 08/10/19 08:00 Height: 1.63 m Weight: 86.364 kg ASA Class: 2 Mental Status: Alert & Oriented x3 Airway Class: Mallampati = 2 Dentition: Reports: Caries Thyro-Mental Finger Breadths: 2 Mouth Opening Finger Breadths: 3 ROM/Head Extension: Full (With pain noted at full extension.) Lungs: Clear to Auscultation, Normal Respiratory Effort Cardiovascular: Regular Rate, Regular Rhythm - Lab Values: Laboratory Last Values WBC 11.67 K/mm3 (3.98-10.04) H 08/10/19 05:31 RBC 3.38 M/mm3 (3.98-5.22) L 08/10/19 05:31 Hgb 11.0 gm/dl (11.2-15.7) L D 08/10/19 05:31 Hct 33.5 % (34.1-44.9) L 08/10/19 05:31 MCV 99.1 fl (79.4-94.8) H 08/10/19 05:31 MCH 32.5 pg (25.6-32.2) H 08/10/19 05:31 MCHC 32.8 g/dl (32.2-35.5) 08/10/19 05:31 RDW Std Deviation 48.6 fL (36.4-46.3) H 08/10/19 05:31 Plt Count 276 K/mm3 (182-369) 08/10/19 05:31 MPV 10.5 fl (9.4-12.3) 08/10/19 05:31 Neut % (Auto) 76.1 % (34.0-71.1) H 08/10/19 05:31 Lymph % (Auto) 15.5 % (19.3-51.7) L 08/10/19 05:31 [place] % (Auto) 6.8 % (4.7-12.5) 08/10/19 05:31 Eos % (Auto) 1.1 (0.7-5.8) 08/10/19 05:31 Baso % (Auto) 0.2 % (0.1-1.2) 08/10/19 05:31 Neut # (Auto) 8.89 K/mm3 (1.56-6.13) H 08/10/19 05:31 Lymph # (Auto) 1.81 K/mm3 (1.18-3.74) 08/10/19 05:31 [place] # (Auto) 0.79 K/mm3 (0.24-0.36) H 08/10/19 05:31 Eos # (Auto) 0.13 K/mm3 (0.04-0.36) 08/10/19 05:31 Baso # (Auto) 0.02 K/mm3 (0.01-0.08) 08/10/19 05:31 Manual Slide Review Abnormal smear 08/09/19 12:35 Sodium 140 mEq/L (136-145) 08/10/19 05:31 Potassium 3.8 mEq/L (3.5-5.1) 08/10/19 05:31 Chloride 104 mEq/L (98-107) 08/10/19 05:31 Carbon Dioxide 26 mEq/L (21-32) 08/10/19 05:31 Anion Gap 13.8 (5-15) 08/10/19 05:31 BUN 14 mg/dL (7-18) 08/10/19 05:31 Creatinine 0.8 mg/dL (0.55-1.02) 08/10/19 05:31 Est Cr Clr Drug Dosing 60.54 mL/min 08/10/19 05:31 Estimated GFR (MDRD) > 60 mL/min (>60) 08/10/19 05:31 BUN/Creatinine Ratio 17.5 (14-18) 08/10/19 05:31 Glucose 101 mg/dL (80-115) 08/10/19 05:31 Lactic Acid 1.3 mmol/L (0.4-2.0) 08/09/19 17:25 Calcium 8.4 mg/dL (8.5-10.1) L 08/10/19 05:31 Magnesium 1.9 mg/dl (1.8-2.4) 08/10/19 05:31 Total Bilirubin 0.9 mg/dL (0.2-1.0) 08/10/19 05:31 AST 77 U/L (15-37) H 08/10/19 05:31 ALT 140 U/L (14-59) H 08/10/19 05:31 Alkaline Phosphatase 94 U/L (46-116) 08/10/19 05:31 CK-MB (CK-2) < 0.5 ng/ml (0-3.6) 08/10/19 05:31 Troponin I < 0.017 ng/mL (0.00-0.056) 08/10/19 05:31 C-Reactive Protein 10.9 mg/dL (<1.0) H* 08/10/19 05:31 Total Protein 5.8 g/dl (6.4-8.2) L 08/10/19 05:31 Albumin 2.7 g/dl (3.4-5.0) L 08/10/19 05:31 Globulin 3.1 gm/dL 08/10/19 05:31 Albumin/Globulin Ratio 0.9 (1-2) L 08/10/19 05:31 Triglycerides 167 mg/dL (<150) H 08/10/19 05:31 Cholesterol 152 mg/dL (<200) 08/10/19 05:31 LDL Cholesterol Direct 71 mg/dL (<100) 08/10/19 05:31 HDL Cholesterol 51.0 mg/dL (40-59) 08/10/19 05:31 Urine Color Yellow (Yellow) 08/09/19 13:23 Urine Appearance Clear (Clear) 08/09/19 13:23 Urine pH 6.0 (5.0-8.0) 08/09/19 13:23 Ur Specific [place] 1.015 (1.005-1.030) 08/09/19 13:23 Urine Protein Negative (Negative) 08/09/19 13:23 Urine Glucose (UA) Negative (Negative) 08/09/19 13:23 Urine Ketones Negative (Negative) 08/09/19 13:23 Urine Occult Blood 2+ (Negative) H 08/09/19 13:23 Urine Nitrite Negative (Negative) 08/09/19 13:23 Urine Bilirubin Negative (Negative) 08/09/19 13:23 Urine Urobilinogen 0.2 (0.2-1.0) 08/09/19 13:23 Ur Leukocyte Esterase 1+ (Negative) H 08/09/19 13:23 Urine RBC 10-20 /hpf (0-5) H 08/09/19 13:23 Urine WBC 0-5 /hpf (0-5) 08/09/19 13:23 Ur Squamous Epith Cells 0-5 /hpf (0-5) 08/09/19 13:23 Urine Bacteria Rare /hpf (FEW) 08/09/19 13:23 Urine Mucus Not seen /hpf (FEW) 08/09/19 13:23 - Allergies Allergies/Adverse Reactions: Allergies Allergy/AdvReac Type Severity Reaction Status Date / Time brimonidine [From Simbrinza] Allergy Burning Verified 08/09/19 18:46 brinzolamide [From Simbrinza] Allergy Burning Verified 08/09/19 18:46 cephalexin Allergy Rash Verified 08/09/19 18:46 doxycycline Allergy Rash Verified 08/09/19 18:46 levothyroxine sodium Allergy Rash Verified 08/09/19 18:46 paroxetine [Paroxetine] Allergy Rash Verified 08/09/19 18:46 Penicillins Allergy Cannot Verified 08/09/19 18:46 Remember red dye Allergy Cannot Verified 08/09/19 18:46 Remember sulfamethoxazole Allergy Rash Verified 08/09/19 18:46 [From Bactrim] Tetanus Vaccines and Toxoid Allergy Hives Verified 08/09/19 18:46 [Tetanus Vaccines & Toxoid] trimethoprim [From Bactrim] Allergy Rash Verified 08/09/19 18:46 venom-honey bee Allergy Itching Verified 08/09/19 18:46 [bee venom (honey bee)] clarithromycin AdvReac metallic Verified 08/09/19 18:46 taste codeine AdvReac Headache Verified 08/09/19 18:46 fenofibrate AdvReac Muscle Verified 08/09/19 18:46 Weakness fluoxetine AdvReac Diarrhea Verified 08/09/19 18:46 levofloxacin AdvReac irregular Verified 08/09/19 18:46 heart beat oseltamivir [From Tamiflu] AdvReac Nausea Verified 08/09/19 18:46 venlafaxine AdvReac Vomiting Verified 08/09/19 18:46 wasps Allergy Anaphylactic Uncoded 08/09/19 18:46 Shock - Anesthesia Plan Pre-Op Medication Ordered: Other (Scopalamine Patch) - Acknowledgements Anesthesia Type Planned: General Anesthesia Pt an Appropriate Candidate for the Planned Anesthesia: Yes Alternatives and Risks of Anesthesia Discussed w Pt/Guardian: Yes Pt/Guardian Understands and Agrees with Anesthesia Plan: Yes PreAnesthesia Questionnaire HEENT History: Reports: Allergic Rhinitis, Glaucoma Other HEENT History: corneal ulcer to left eye Cardiovascular History: Reports: Hypertension, Other (See Below) Respiratory History: Reports: Bronchitis, Recurrent, Pneumonia, Recurrent Other Respiratory History: cough, lower respiratory infection Gastrointestinal History: Reports: GERD, Irritable Bowel Syndrome Other Gastrointestinal History: stomach malrotation Genitourinary History: Reports: Urinary Incontinence, Other (See Below) Other Genitourinary History: [employer] History: Reports: Other (See Below) Other OB/BYN History: breast pain Musculoskeletal History: Reports: Osteoarthritis Other Musculoskeletal History: generalized weakness Neurological History: Reports: Migraines Psychiatric History: Reports: Depression, Other (See Below) Endocrine/Metabolic History: Reports: Hypothyroidism, Obesity/BMI 30+ Other Endocrine/Metabolic History: enlarged thyroid, thyroid nodule Hematologic History: Reports: Anemia Immunologic History: Reports: None Oncologic (Cancer) History: Reports: None Dermatologic History: Reports: Eczema Other Dermatologic History: hair loss, actinic keratosis, facial flushing, seborrheic keratosis - Past Surgical History Head Surgeries/Procedures: Reports: None HEENT Surgical History: Reports: Cataract Surgery, Eye Surgery, Naso-Sinus Surgery, Oral Surgery Cardiovascular Surgical History: Reports: Aneurysm Respiratory Surgical History: Reports: None GI Surgical History: Reports: Appendectomy, Colonoscopy Female Surgical History: Reports: Hysterectomy Other Female Surgeries/Procedures: lumpectomy; fibrocystic breast, cystocele , rectocele, bladder sling Endocrine Surgical History: Reports: None Neurological Surgical History: Reports: None Musculoskeletal Surgical History: Reports: Carpal Tunnel, Other (See Below) Other Musculoskeletal Surgeries/Procedures:: foot surgery Oncologic Surgical History: Reports: Biopsy of Breast Dermatological Surgical History: Reports: Other (See Below) - SUBSTANCE USE Smoking Status *Q: Never Smoker Second Hand Smoke Exposure: No Recreational Drug Use History: No - HOME MEDS Home Medications: Home Meds Brimonidine Tartrate/Timolol [Combigan 0.2%-0.5% Eye Drops] 1 drop EYERT BID [History] Finasteride 1.25 mg PO DAILY 08/03/18 [History] Flunisolide [Nasalide Nasal [place]] 2 spray NASBOTH BID 08/03/18 [History] Levothyroxine 150 mcg PO ACBREAKFAST 08/03/18 [History] Omeprazole 40 mg PO DAILY 08/03/18 [History] Orphenadrine [Norflex] 100 mg PO BID PRN 08/03/18 [History] Spironolactone 150 mg PO DAILY 08/03/18 [History] Travoprost [Travatan Z] 1 drop EYERT BEDTIME 08/03/18 [History] estradioL [Estradiol] 1.5 mg PO DAILY 08/03/18 [History] valACYclovir HCl [Valtrex] 500 mg PO DAILY 08/03/18 [History] Cyanocobalamin (Vitamin B-12) [Vitamin B-12] 5,000 mcg PO DAILY 03/11/19 [ History] EPINEPHrine [Epipen] 0.3 mg IM ONETIME PRN 03/11/19 [History] Prednisolone Acetate/Pf [Prednisolone Acet 1% Eye Drop] 1 drop EYELF DAILY 08/07 [History] Acetaminophen/oxyCODONE [Percocet 325-5 MG] 2 tab PO Q6H PRN 08/09/19 [History] Betamethasone/Propylene Glyc [Betamethasone Dp Aug 0.05% Oin] 1 applic TOP BID PRN 08/09/19 [History] Biotin 10,000 mcg PO DAILY 08/09/19 [History] Calcium Citrate/Vitamin D3 [Calcium Citrate-Vit D3 Caplet] 1 tab PO DAILY [History] Cholecalciferol (Vitamin D3) [Vitamin D3] 1,000 unit PO DAILY 08/09/19 [History] Ferrous Sulfate 325 mg PO WEEKLY 08/09/19 [History] Ibuprofen 600 mg PO Q4H PRN 08/09/19 [History] Irbesartan 75 mg PO DAILY 08/09/19 [History] Loratadine [Claritin] 10 mg PO DAILY PRN 08/09/19 [History] Magnesium Malate 0 gm PO DAILY 08/09/19 [History] Multivit-Min/Iron/Folic/Lutein [Centrum Silver Women Tablet] 1 tab PO DAILY 12/22 [History] Perkins-3/DHA/Epa/Fish Oil [Perkins 3 500 Softgel] 2,000 mg PO DAILY 08/09/19 [ History] Ondansetron [Zofran ODT] 4 mg PO Q4H PRN 08/09/19 [History] Vitamin B6-pyridOXINE [Vitamin B6] 200 mg PO DAILY 08/09/19 [History] predniSONE [Prednisone] 20 - 40 mg PO ASDIRECTED PRN 08/09/19 [History] - CURRENT (IN HOUSE) MEDS Current Meds: Current Medications Acetaminophen (Tylenol) 650 mg PO Q4H PRN PRN Reason: Pain (Mild 1-3)/fever Albuterol/Ipratropium (Duoneb 3.0-0.5 Mg/3 Ml) 3 ml NEB Q4H PRN PRN Reason: Shortness Of Breath/wheezing Enoxaparin Sodium (Lovenox) 40 mg SUBCUT DAILY MOHINDER Hydromorphone HCl (Dilaudid) 0.5 mg IVPUSH Q2H PRN PRN Reason: Pain (severe 7-10) Last Admin: 08/10/19 07:33 Dose: 0.5 mg Promethazine HCl 6.25 mg/ (Sodium Chloride) 50.25 mls @ 100 mls/hr IV Q6H PRN PRN Reason: Nausea/Vomiting Metronidazole 500 mg/ Premix 100 mls @ 100 mls/hr IV Q8H [facility] Last Admin: 08/10/19 02:52 Dose: 100 mls/hr Meropenem/Sodium Chloride 500 (mg/ Premix) 50 mls @ 100 mls/hr IV Q6H [facility] Last Admin: 08/10/19 08:51 Dose: 100 mls/hr Lactated Ringer's (Ringers, Lactated) 1,000 mls @ 75 mls/hr IV ASDIRECTED [facility] Ketorolac Tromethamine (Toradol) 30 mg IV Q6H PRN PRN Reason: Pain (moderate 4-6) Last Admin: 08/10/19 05:34 Dose: 30 mg Ondansetron HCl (Zofran) 4 mg IV Q6H PRN PRN Reason: Nausea/Vomiting Scopolamine (Transderm-Scop) 1.5 mg TOP ONETIME ONE Stop: 08/10/19 11:01 Sodium Chloride (Saline Flush) 10 ml FLUSH ASDIRECTED PRN PRN Reason: Keep Vein Open Last Admin: 08/09/19 12:40 Dose: 10 ml Temazepam (Restoril) 7.5 mg PO BEDTIME PRN PRN Reason: Sleep Discontinued Medications Diazepam (Valium) 5 mg IVPUSH ONETIME ONE Stop: 08/09/19 16:49 Last Admin: 08/09/19 16:55 Dose: 5 mg Hydromorphone HCl (Dilaudid) 1 mg IVPUSH ONETIME ONE Stop: 08/09/19 12:23 Last Admin: 08/09/19 12:37 Dose: 1 mg Hydromorphone HCl (Dilaudid) 0.5 mg IVPUSH ONETIME ONE Stop: 08/09/19 15:18 Last Admin: 08/09/19 15:29 Dose: 0.5 mg Sodium Chloride (Normal Saline) 1,000 mls @ 125 mls/hr IV ASDIRECTED [facility] Last Admin: 08/09/19 12:40 Dose: 125 mls/hr Sodium Chloride (Normal Saline) 100 mls @ 4 mls/sec IV ONETIME ONE Stop: 08/09/19 12:58 Last Admin: 08/09/19 13:21 Dose: 4 mls/sec Levofloxacin/Dextrose 750 mg/ (Premix) 150 mls @ 100 mls/hr IV ONETIME ONE Stop: 08/09/19 17:47 Last Admin: 08/09/19 16:45 Dose: Not Given Metronidazole 500 mg/ Premix 100 mls @ 100 mls/hr IV ONETIME ONE Stop: 08/09/19 17:31 Last Admin: 08/09/19 17:43 Dose: 100 mls/hr Meropenem 1 gm/ Sodium (Chloride) 100 mls @ 200 mls/hr IV ONETIME ONE Stop: 08/09/19 17:13 Last Admin: 08/09/19 18:46 Dose: Not Given Meropenem 1 gm/ Sodium (Chloride) 100 mls @ 200 mls/hr IV Q8H [facility]OH[facility]ER Lactated Ringer's (Ringers, Lactated) 1,000 mls @ 50 mls/hr IV ASDIRECTED [facility] Last Admin: 08/09/19 18:51 Dose: 50 mls/hr Iopamidol (Isovue-370 (76%)) 100 ml IVPUSH ONETIME ONE Stop: 08/09/19 12:58 Last Admin: 08/09/19 13:21 Dose: 100 ml Lorazepam (Ativan) 0.5 mg IVPUSH ONETIME ONE Stop: 08/09/19 14:11 Last Admin: 08/09/19 14:20 Dose: 0.5 mg Ondansetron HCl (Zofran) 4 mg IVPUSH ONETIME ONE Stop: 08/09/19 12:22 Last Admin: 08/09/19 12:35 Dose: 4 mg
[2019-08-10] MEDS ORDERED: Scopolamine 1.5 MG Transdermal Patch TOP ONE (11:00)
[2019-08-10] MEDS: Enoxaparin 40 MG/0.4 ML Syringe SUBCUT SCH (12:27)
[2019-08-10] MEDS: Lactated Ringers 1,000 ML IV SCH ×2 (12:28→21:44)
[2019-08-10] MEDS ORDERED: Lidocaine 1% 30 ML SDV ONE (13:38)
[2019-08-10] MEDS ORDERED: Dexamethasone 4 MG/ML 5 ML MDV ONE (14:03)
[2019-08-10] MEDS ORDERED: Ondansetron 4 MG/2 ML SDV ONE (14:03)
[2019-08-10] MEDS ORDERED: Rocuronium 100 MG/10 ML MDV ONE (14:03)
[2019-08-10] MEDS ORDERED: Propofol 200 MG/20 ML SDV ONE ×2 (14:03→14:56)
[2019-08-10] MEDS ORDERED: Midazolam 1 MG/ML 2 ML SDV ONE (14:04)
[2019-08-10] MEDS ORDERED: fentaNYL 250 MCG/5 ML SDV ONE (14:04)
[2019-08-10] MEDS ORDERED: Ketorolac 30 MG/ML SDV ONE (14:07)
[2019-08-10] MEDS ORDERED: Lidocaine 1% 4 ML ONE (14:07)
[2019-08-10] MEDS ORDERED: ceFAZolin 1 GM Vial ONE ×2 (14:08)
[2019-08-10] MEDS ORDERED: Lactated Ringers 1,000 ML ONE ×2 (15:03)
[2019-08-10] MEDS ORDERED: Iopamidol 612 MG/ML 50 ML SDV ONE ×3 (15:14→16:38)
[2019-08-10] MEDS ORDERED: Sodium Chloride 0.9% 20 ML ONE (15:16)
[2019-08-10] MEDS ORDERED: Sodium Chloride 0.9% 10 ML ONE (15:22)
[2019-08-10] MEDS ORDERED: Sodium Chloride 0.9% 50 ML SDV ONE ×4 (15:25→16:38)
[2019-08-10] MEDS ORDERED: Ketamine 500 mg/10 ML MDV ONE (15:26)
[2019-08-10] MEDS ORDERED: Phenylephrine/Normal Saline 100 MCG/ML 10 ML Syringe ONE (15:36)
[2019-08-10] MEDS ORDERED: Glucagon,Human Recombinant 1 MG Vial ONE (16:28)
[2019-08-10] MEDS ORDERED: Ondansetron 4 MG/2 ML SDV IVPUSH PRN (16:51)
[2019-08-10] MEDS ORDERED: fentaNYL 100 MCG/2 ML SDV IVPUSH PRN (16:51)
[2019-08-10] MEDS ORDERED: fentaNYL 100 MCG/2 ML SDV ONE (16:53)
[2019-08-10] MEDS ORDERED: Neostigmine Methylsulfate 1 MG/ML 5 ML Syringe ONE (17:09)
--- NOTE | 2019-08-10 17:19 | CR ---
Operative cholangiogram: Multiple fluoroscopic spot views were obtained during operative cholangiogram study. Study was obtained utilizing C-arm device. Comparison: No prior operative cholangiogram study. Findings: Opacified CHD and CBD as well as proximal intrahepatic ducts show no filling defects to suggest retained stone. Contrast is seen within the duodenum. Impression: 1. No abnormality identified on operative cholangiogram exam. Please correlate with fluoroscopic study. Diagnostic code #1 This report was dictated in [place] Standard Time
--- NOTE | 2019-08-10 18:01 | PCM.POSTAN ---
POST ANESTHESIA ASSESSMENT - MENTAL STATUS Mental Status: Alert, Oriented - VITAL SIGNS Vital Signs: Last Vital Signs 1753 139/75 106 9 96% 98.4F - RESPIRATORY Respiratory Status: Respiratory Rate WNL, Airway Patent, O2 Saturation Stable, Supplemental Oxygen - CARDIOVASCULAR CV Status: Blood Pressure Stable, Elevated Pulse Rate - GASTROINTESTINAL GI Status: No Symptoms - PAIN Pain Score: 0 - POST OP HYDRATION Hydration Status: Adequate & Stable
--- NOTE | 2019-08-10 19:12 | OR ---
DATE OF OPERATION: 08/10/2019 SURGEON: Sol Willams MD PREOPERATIVE DIAGNOSIS: Acute cholecystitis. POSTOPERATIVE DIAGNOSIS: 1. Acutely inflamed gallbladder. 2. Possible choledocholithiasis. OPERATION PERFORMED: 1. Laparoscopic cholecystectomy. 2. Intraoperative cholangiogram. 3. Interpretation of cholangiographic images. ANESTHESIA: General endotracheal. ESTIMATED BLOOD LOSS: 100 mL. COMPLICATIONS: None. NEED FOR ADVISER SALES: Skilled assistance was needed in this case. The autopsy assistant assisted with patient preparation, holding of retractors and the camera during the case, and wound dressing at the end of the case. INDICATIONS AND CONSENT: The patient is a 64-year-old female, who presented to the emergency department with complaints of bilateral chest cramps. The patient had these symptoms for about a day. The symptoms were worsening. They woke her up at 5 a.m. The patient reported to me that she had had 1 other episode in the past that happened after eating; however, she was to undergo a cholecystectomy, but she had to leave the state; therefore, she could not have that done. The patient's labs revealed a white count of 15,000. CT scan as well as ultrasound both revealed gallbladder wall thickening without any pericholecystic fluid. The patient had a cystocele repair 3 days prior to presentation, but she did not have any symptoms from her prior repair, and UA was negative for a UTI. Given these findings, I evaluated the patient, and based on the available data, I suspect the patient had acute cholecystitis; however, I recommended we proceed with a laparoscopic cholecystectomy with intraoperative cholangiogram, given that the patient had elevated total bilirubin and LFTs at her presentation in the emergency department. I discussed with the patient in detail the risks, benefits, and alternatives to the procedure. The patient understood and agreed to proceed with the procedure. DESCRIPTION OF PROCEDURE: The patient was taken to the operating room and placed in supine position. Following induction of general endotracheal anesthesia, SCDs were placed. The patient was appropriately padded, and arms were tucked. Then, the abdomen was prepped and draped in the usual sterile fashion. A formal time-out was performed prior to the start of the procedure. Preop antibiotics were not indicated in this case, as the patient had just received meropenem preoperatively. I began the procedure by making a right subcostal incision after injecting a local anesthetic. Then, a Veress needle was placed here, and the abdomen was insufflated to 15 mmHg. Then, a 5 mm Optiview trocar was placed under direct visualization of laparoscope. The abdomen was entered without any injury due to Veress needle or trocar insertion. Upon inspection, there were no adhesions, as the patient had a prior hysterectomy. Then, a 10 mm trocar was placed in the supraumbilical position. Two additional 5 mm trocars, one in the subxiphoid and another one in the right lateral abdomen, were placed under direct visualization. The gallbladder was distended and inflamed. About 50 mL of bile was aspirated to allow grasping of the gallbladder. Then, the gallbladder was grasped and elevated cranially. The dissection of the infundibulum was carried out. There was significant inflammation at this site; therefore, there was significant oozing during this dissection. Eventually, the cystic duct and cystic artery were both isolated and skeletonize. Critical angle of safety was reached. The artery was clipped with 4 clips and transected such that 2 clips remained in situ. The cystic duct was boggy and dilated because of chronic obstruction; therefore, we pursued intraoperative cholangiogram. To do this, a Nash Clamp was placed, and a Nash Catheter was placed in the cystic duct, and contrast was injected. Initially, contrast flowed smoothly into the duodenum; however, on subsequent fluoroscope pictures, there was a small defect in the distal common bile duct. This defect appeared to be due to air; therefore, glucagon was given, and after waiting 3 minutes, the common bile duct was flushed with saline, and a repeat cholangiogram was performed. That defect persisted; therefore, a repeat flush with saline and contrast was repeated. On the third attempt, there was flow once again of contrast both into the duodenum as well as retrograde into the liver. This confirmed that the common bile duct and biliary tree were patent; therefore, the cholangiogram was concluded at this point, and the gallbladder was dissected off the cystic plate and the gallbladder fossa with cautery. Then, it was placed into an Endo Catch bag. Prior to transecting the gallbladder off the cystic plate, as mentioned earlier, the cystic duct was boggy; therefore, a 10 mm clip was brought into the field. Subxiphoid trocar was exchanges into a 12 mm trocar to allow clipping of the cystic duct. Even the 10 mm clips were not able to clip completely the cystic duct; therefore, ENDOLOOP was used to tie the cystic duct closed to make sure that there was no leak. Then, once this was done, the gallbladder was taken off the gallbladder fossa and placed in the Endo Catch bag. The suprahepatic space was irrigated with 1 L of normal saline. There was no bleeding upon inspection of the gallbladder fossa, and this concluded the dissection of the gallbladder. The gallbladder was removed through the periumbilical incision and passed off for pathology. There were clearly some stones in the gallbladder. Once this was done, we reinspected the abdomen. There were no injuries that were obviously visible. There was no bleeding. The umbilical incision was closed with 0 Vicryl stitches in a [id number] fashion using Ziyad-Katina, and the 10 mm incision at the subxiphoid area was also closed at the fascial level with 0 Vicryl stitch. Then, the skin was approximated at all sites with 4-0 Monocryl stitches. This marked the end of the procedure. At the end of the procedure, instruments, sharps, and sponges were counted and found to be correct x2. The patient was awoken from general anesthesia and taken to the PACU for recovery. PLAN: To observe the patient overnight, start some clears, and repeat LFTs in the morning to make sure that there is no obstruction of the common bile duct. The patient will be discharged home once the LFTs are downtrending, and she is to follow up with me in 2 weeks for a postop check. JIN /[id number] ALMA
[2019-08-10] MEDS: Temazepam 7.5 MG Cap PO PRN (21:28)
[2019-08-11] MEDS: metroNIDAZOLE/Normal Saline 500 MG in Premix Bag 1 BAG IV SCH ×2 (01:10→09:08)
[2019-08-11] MEDS: Meropenem Premix 500 MG in Premix Bag 1 BAG IV SCH ×2 (01:11→08:29)
[2019-08-11] MEDS: HYDROmorphone 0.5 MG/0.5 ML Syringe IVPUSH PRN ×3 (01:11→08:44)
[2019-08-11] MEDS: Ketorolac 30 MG/ML SDV IV PRN (04:18)
[2019-08-11] MEDS ORDERED: LORazepam 2 MG/ML SDV IVPUSH ONE (07:00)
[2019-08-11] MEDS: Enoxaparin 40 MG/0.4 ML Syringe SUBCUT SCH (08:26)
--- NOTE | 2019-08-11 08:43 | PCM.PN ---
- General Info Date of Service: 08/11/19 Admission Dx/Problem (Free Text): Admission Diagnosis/Problem Admission Diagnosis/Problem Cholecystitis Subjective Update: She did reset well she was up every couple fo hrs which is normal to her due to her fibromyalgia. Her pain is fairly controlled. She has been tolerating current diet. She states she wants to be completely out if she goes for imaging study. Functional Status: Reports: Pain Controlled, Ambulating, Urinating. Denies: New Symptoms - Review of Systems General: Denies: Fever, Chills HEENT: Reports: No Symptoms Pulmonary: Denies: Shortness of Breath Cardiovascular: Denies: Chest Pain Gastrointestinal: Reports: Abdominal Pain. Denies: Nausea, Vomiting Genitourinary: Reports: No Symptoms Musculoskeletal: Reports: No Symptoms Skin: Denies: Cyanosis, Bruising Neurological: Denies: Headache, Numbness, Seizure, Tingling, Difficulty Walking Psychiatric: Denies: Depression, Anxiety - Patient Data Vitals - Most Recent: Last Vital Signs Temp 36.9 C 08/11/19 04:30 Pulse 89 08/11/19 04:30 Resp 17 08/11/19 04:30 BP 143/68 H 08/11/19 04:30 Pulse Ox 97 08/11/19 04:30 Weight - Most Recent: 89.766 kg I&O - Last 24 Hours: Intake & Output 08/10/19 08/11/19 08/11/19 22:59 06:59 14:59 Intake Total 400 910 Output Total 400 1450 Balance 0 -540 Lab Results Last 24 Hours: Laboratory Results - last 24 hr 08/09/19 08/11/19 08/11/19 Range/Units 12:35 06:04 06:04 WBC 10.84 H (3.98-10.04) K/mm3 RBC 3.31 L (3.98-5.22) M/mm3 Hgb 10.6 L (11.2-15.7) gm/dl Hct 32.8 L (34.1-44.9) % MCV 99.1 H (79.4-94.8) fl MCH 32.0 (25.6-32.2) pg MCHC 32.3 (32.2-35.5) g/dl RDW Std Deviation 47.1 H (36.4-46.3) fL Plt Count 277 (182-369) K/mm3 MPV 10.5 (9.4-12.3) fl Neut % (Auto) 85.8 H (34.0-71.1) % Lymph % (Auto) 9.0 L (19.3-51.7) % [place] % (Auto) 4.9 (4.7-12.5) % Eos % (Auto) 0 L (0.7-5.8) Baso % (Auto) 0.0 L (0.1-1.2) % Neut # (Auto) 9.30 H (1.56-6.13) K/mm3 Lymph # (Auto) 0.98 L (1.18-3.74) K/mm3 [place] # (Auto) 0.53 H (0.24-0.36) K/mm3 Eos # (Auto) 0.00 L (0.04-0.36) K/mm3 Baso # (Auto) 0.00 L (0.01-0.08) K/mm3 Manual Slide Review Abnormal smear Sodium 140 (136-145) mEq/L Potassium 4.0 (3.5-5.1) mEq/L Chloride 105 (98-107) mEq/L Carbon Dioxide 25 (21-32) mEq/L Anion Gap 14.0 (5-15) BUN 12 (7-18) mg/dL Creatinine 0.6 (0.55-1.02) mg/dL Est Cr Clr Drug Dosing 80.72 mL/min Estimated GFR (MDRD) > 60 (>60) mL/min BUN/Creatinine Ratio 20.0 H (14-18) Glucose 99 (80-115) mg/dL Calcium 8.3 L (8.5-10.1) mg/dL Magnesium 2.0 (1.8-2.4) mg/dl Total Bilirubin 0.6 (0.2-1.0) mg/dL AST 118 H (15-37) U/L ALT 151 H (14-59) U/L Alkaline Phosphatase 159 H (46-116) U/L C-Reactive Protein 11.7 H* (<1.0) mg/dL Total Protein 5.5 L (6.4-8.2) g/dl Albumin 2.4 L (3.4-5.0) g/dl Globulin 3.1 gm/dL Albumin/Globulin Ratio 0.8 L (1-2) Procalcitonin 0.10 H (<0.10) ng/mL [place] Results Last 24 Hours: Microbiology 08/09/19 17:00 Aerobic Blood Culture - Preliminary Blood - Venous - Lab Draw NO GROWTH AFTER 1 DAY Anaerobic Blood Culture - Preliminary NO GROWTH AFTER 1 DAY 08/09/19 17:25 Aerobic Blood Culture - Preliminary Blood - Venous NO GROWTH AFTER 1 DAY Anaerobic Blood Culture - Preliminary NO GROWTH AFTER 1 DAY Med Orders - Current: Current Medications Acetaminophen (Tylenol) 650 mg PO Q4H PRN PRN Reason: Pain (Mild 1-3)/fever Albuterol/Ipratropium (Duoneb 3.0-0.5 Mg/3 Ml) 3 ml NEB Q4H PRN PRN Reason: Shortness Of Breath/wheezing Enoxaparin Sodium (Lovenox) 40 mg SUBCUT DAILY [facility] Last Admin: 08/11/19 08:26 Dose: 40 mg Hydromorphone HCl (Dilaudid) 0.5 mg IVPUSH Q2H PRN PRN Reason: Pain (severe 7-10) Last Admin: 08/11/19 06:14 Dose: 0.5 mg Promethazine HCl 6.25 mg/ (Sodium Chloride) 50.25 mls @ 100 mls/hr IV Q6H PRN PRN Reason: Nausea/Vomiting Metronidazole 500 mg/ Premix 100 mls @ 100 mls/hr IV Q8H [facility] Last Admin: 08/11/19 01:10 Dose: 100 mls/hr Meropenem/Sodium Chloride 500 (mg/ Premix) 50 mls @ 100 mls/hr IV Q6H [facility] Last Admin: 08/11/19 08:29 Dose: 100 mls/hr Lactated Ringer's (Ringers, Lactated) 1,000 mls @ 75 mls/hr IV ASDIRECTED [facility] Last Admin: 08/10/19 21:44 Dose: 75 mls/hr Ketorolac Tromethamine (Toradol) 30 mg IV Q6H PRN PRN Reason: Pain (moderate 4-6) Last Admin: 08/11/19 04:18 Dose: 30 mg Miscellaneous Information (Remove Patch) 1 ea TRDERM ONETIME ONE Stop: 08/13/19 11:01 Last Admin: 08/11/19 08:30 Dose: 1 ea Ondansetron HCl (Zofran) 4 mg IV Q6H PRN PRN Reason: Nausea/Vomiting Last Admin: 08/10/19 09:43 Dose: 4 mg Sodium Chloride (Saline Flush) 10 ml FLUSH ASDIRECTED PRN PRN Reason: Keep Vein Open Last Admin: 08/09/19 12:40 Dose: 10 ml Temazepam (Restoril) 15 mg PO BEDTIME PRN PRN Reason: Sleep Last Admin: 08/10/19 21:28 Dose: 15 mg Discontinued Medications Cefazolin Sodium (Ancef) Confirm Administered Dose 1 gm .ROUTE .STK-MED ONE Stop: 08/10/19 14:09 Cefazolin Sodium (Ancef) Confirm Administered Dose 1 gm .ROUTE .STK-MED ONE Stop: 08/10/19 14:09 Dexamethasone (Dexamethasone) Confirm Administered Dose 20 mg .ROUTE .STK-MED ONE Stop: 08/10/19 14:04 Diazepam (Valium) 5 mg IVPUSH ONETIME ONE Stop: 08/09/19 16:49 Last Admin: 08/09/19 16:55 Dose: 5 mg Fentanyl (Sublimaze) Confirm Administered Dose 250 mcg .ROUTE .STK-MED ONE Stop: 08/10/19 14:05 Fentanyl (Sublimaze) 50 mcg IVPUSH Q5M PRN PRN Reason: Pain Stop: 08/10/19 19:00 Last Admin: 08/10/19 18:19 Dose: 50 mcg Glucagon (Glucagen) Confirm Administered Dose 1 mg .ROUTE .STK-MED ONE Stop: 08/10/19 16:29 Glycopyrrolate () Confirm Administered Dose 1 mg .ROUTE .STK-MED ONE Stop: 08/10/19 17:10 Hydromorphone HCl (Dilaudid) 1 mg IVPUSH ONETIME ONE Stop: 08/09/19 12:23 Last Admin: 08/09/19 12:37 Dose: 1 mg Hydromorphone HCl (Dilaudid) 0.5 mg IVPUSH ONETIME ONE Stop: 08/09/19 15:18 Last Admin: 08/09/19 15:29 Dose: 0.5 mg Hydromorphone HCl (Dilaudid) 0.5 mg IVPUSH Q10M PRN PRN Reason: Pain (severe 7-10) Stop: 08/10/19 19:00 Last Admin: 08/10/19 18:48 Dose: 0.5 mg Sodium Chloride (Normal Saline) 1,000 mls @ 125 mls/hr IV ASDIRECTED [facility] Last Admin: 08/09/19 12:40 Dose: 125 mls/hr Sodium Chloride (Normal Saline) 100 mls @ 4 mls/sec IV ONETIME ONE Stop: 08/09/19 12:58 Last Admin: 08/09/19 13:21 Dose: 4 mls/sec Levofloxacin/Dextrose 750 mg/ (Premix) 150 mls @ 100 mls/hr IV ONETIME ONE Stop: 08/09/19 17:47 Last Admin: 08/09/19 16:45 Dose: Not Given Metronidazole 500 mg/ Premix 100 mls @ 100 mls/hr IV ONETIME ONE Stop: 08/09/19 17:31 Last Admin: 08/09/19 17:43 Dose: 100 mls/hr Meropenem 1 gm/ Sodium (Chloride) 100 mls @ 200 mls/hr IV ONETIME ONE Stop: 08/09/19 17:13 Last Admin: 08/09/19 18:46 Dose: Not Given Meropenem 1 gm/ Sodium (Chloride) 100 mls @ 200 mls/hr IV Q8H [facility] Lactated Ringer's (Ringers, Lactated) 1,000 mls @ 50 mls/hr IV ASDIRECTED [facility] Last Admin: 08/09/19 18:51 Dose: 50 mls/hr Lidocaine HCl (Xylocaine-Mpf 1%) Confirm Administered Dose 4 mls @ as directed .ROUTE .STK-MED ONE Stop: 08/10/19 14:08 Lactated Ringer's (Ringers, Lactated) Confirm Administered Dose 1,000 mls @ as directed .ROUTE .STK-MED ONE Stop: 08/10/19 15:04 Lactated Ringer's (Ringers, Lactated) Confirm Administered Dose 1,000 mls @ as directed .ROUTE .STK-MED ONE Stop: 08/10/19 15:04 Sodium Chloride (Normal Saline) Confirm Administered Dose 20 mls @ as directed .ROUTE .STK-MED ONE Stop: 08/10/19 15:17 Sodium Chloride (Normal Saline) Confirm Administered Dose 10 mls @ as directed .ROUTE .[facility]-MED ONE Stop: 08/10/19 15:23 Iopamidol (Isovue-370 (76%)) 100 ml IVPUSH ONETIME ONE Stop: 08/09/19 12:58 Last Admin: 08/09/19 13:21 Dose: 100 ml Iopamidol (Isovue-300 (61%)) Confirm Administered Dose 50 ml .ROUTE .[facility]-MED ONE Stop: 08/10/19 15:15 Last Admin: 08/10/19 16:33 Dose: 96 ml Iopamidol (Isovue-300 (61%)) Confirm Administered Dose 50 ml .ROUTE .[facility]-MED ONE Stop: 08/10/19 16:33 Iopamidol (Isovue-300 (61%)) Confirm Administered Dose 50 ml .ROUTE .[facility]-MED ONE Stop: 08/10/19 16:39 Ketamine HCl (Ketalar) Confirm Administered Dose 500 mg .ROUTE .[facility] ONE Stop: 08/10/19 15:27 Ketorolac Tromethamine (Toradol) Confirm Administered Dose 30 mg .ROUTE .[facility]- MED ONE Stop: 08/10/19 14:08 Lidocaine HCl (Xylocaine-Mpf 1%) Confirm Administered Dose 30 ml .ROUTE .[facility]- MED ONE Stop: 08/10/19 13:39 Last Admin: 08/10/19 15:43 Dose: 30 ml Lorazepam (Ativan) 0.5 mg IVPUSH ONETIME ONE Stop: 08/09/19 14:11 Last Admin: 08/09/19 14:20 Dose: 0.5 mg Lorazepam (Ativan) 2 mg IVPUSH ONETIME ONE Stop: 08/11/19 07:01 Midazolam HCl (Versed 1 Mg/Ml) Confirm Administered Dose 2 mg .ROUTE .[facility]-MED ONE Stop: 08/10/19 14:05 Neostigmine Methylsulfate (Neostigmine) Confirm Administered Dose 5 mg .ROUTE .[facility]-MED ONE Stop: 08/10/19 17:10 Ondansetron HCl (Zofran) 4 mg IVPUSH ONETIME ONE Stop: 08/09/19 12:22 Last Admin: 08/09/19 12:35 Dose: 4 mg Ondansetron HCl (Zofran) Confirm Administered Dose 4 mg .ROUTE .STK-MED ONE Stop: 08/10/19 14:04 Ondansetron HCl (Zofran) 4 mg IVPUSH ONETIME PRN PRN Reason: Nausea/Vomiting Stop: 08/10/19 19:00 Last Admin: 08/10/19 18:24 Dose: 4 mg Phenylephrine HCl (Phenylephrine In Ns 100 Mcg/Ml) Confirm Administered Dose 1 mg .ROUTE .STK-MED ONE Stop: 08/10/19 15:37 Propofol (Diprivan 20 Ml) Confirm Administered Dose 200 mg .ROUTE .STK-MED ONE Stop: 08/10/19 14:04 Propofol (Diprivan 20 Ml) Confirm Administered Dose 200 mg .ROUTE .STK-MED ONE Stop: 08/10/19 14:57 Rocuronium [place] (Zemuron) Confirm Administered Dose 100 mg .ROUTE .STK-MED ONE Stop: 08/10/19 14:04 Scopolamine (Transderm-Scop) 1.5 mg TOP ONETIME ONE Stop: 08/10/19 11:01 Last Admin: 08/10/19 11:21 Dose: 1.5 mg Sodium Chloride (Normal Saline) Confirm Administered Dose 50 ml .ROUTE .STK-MED ONE Stop: 08/10/19 15:26 Last Admin: 08/10/19 16:33 Dose: 130 ml Sodium Chloride (Normal Saline) Confirm Administered Dose 50 ml .ROUTE .STK-MED ONE Stop: 08/10/19 16:31 Sodium Chloride (Normal Saline) Confirm Administered Dose 50 ml .ROUTE .STK-MED ONE Stop: 08/10/19 16:33 Sodium Chloride (Normal Saline) Confirm Administered Dose 50 ml .ROUTE .STK-MED ONE Stop: 08/10/19 16:39 Temazepam (Restoril) 7.5 mg PO BEDTIME PRN PRN Reason: Sleep - Exam Quality Assessment: Supplemental Oxygen (on mid abdomen) General: Alert, Oriented, Cooperative, No Acute Distress HEENT: Pupils Equal, Pupils Reactive, EOMI, Mucous Membr. Moist/[place] Neck: Supple Lungs: Clear to Auscultation, Normal Respiratory Effort Cardiovascular: Regular Rate, Regular Rhythm GI/Abdominal Exam: Normal Bowel Sounds, Soft, No Organomegaly, No Distention, No Abnormal Bruit, Tender (Female) Exam: Deferred Back Exam: Normal Inspection, Decreased Range of Motion Extremities: Normal Inspection, Normal Range of Motion, Non-Tender, No Pedal Edema, Normal Capillary Refill Peripheral Pulses: 2+: Dorsalis Pedis (L), Dorsalis Pedis (R) Skin: Warm, Dry, Intact Wound/Incisions: Healing Well, Dressing Dry and Intact, No Drainage Neurological: No New Focal Deficit (limited but grossly intact) Psy/Mental Status: Alert, Normal Affect, Normal Mood Sepsis Event Note - Evaluation Sepsis Screening Result: No Definite Risk - Focused Exam Vital Signs: Vital Signs Temp Pulse Resp BP Pulse Ox 08/11/19 04:30 36.9 C 89 17 143/68 H 97 08/11/19 01:08 36.7 C 100 17 139/60 91 L 08/10/19 22:26 36.6 C 101 H 18 131/71 94 L 08/10/19 22:01 92 121/57 L 95 08/10/19 21:47 99 124/61 08/10/19 21:32 93 131/59 L 96 08/10/19 21:20 89 141/73 H 91 L 08/10/19 21:01 100 125/61 95 08/10/19 20:46 99 133/58 L 96 Date Exam was Performed: 08/11/19 Time Exam was Performed: 14:57 - Problem List Review Problem List Initiated/Reviewed/Updated: Yes - My Orders Last 24 Hours: My Active Orders 08/10/19 09:00 Enoxaparin [Lovenox] 40 mg SUBCUT DAILY 08/10/19 20:39 Temazepam [Restoril] 15 mg PO BEDTIME PRN 08/12/19 05:11 C-REACTIVE PROTEIN [CHEM] AM CBC WITH AUTO DIFF [HEME] AM COMPREHENSIVE METABOLIC PN,CMP [CHEM] AM MAGNESIUM [CHEM] AM 08/13/19 05:11 C-REACTIVE PROTEIN [CHEM] AM CBC WITH AUTO DIFF [HEME] AM COMPREHENSIVE METABOLIC PN,CMP [CHEM] AM MAGNESIUM [CHEM] AM 08/14/19 05:11 C-REACTIVE PROTEIN [CHEM] AM CBC WITH AUTO DIFF [HEME] AM COMPREHENSIVE METABOLIC PN,CMP [CHEM] AM MAGNESIUM [CHEM] AM 08/15/19 05:11 C-REACTIVE PROTEIN [CHEM] AM CBC WITH AUTO DIFF [HEME] AM COMPREHENSIVE METABOLIC PN,CMP [CHEM] AM MAGNESIUM [CHEM] AM 08/16/19 05:11 C-REACTIVE PROTEIN [CHEM] AM CBC WITH AUTO DIFF [HEME] AM COMPREHENSIVE METABOLIC PN,CMP [CHEM] AM MAGNESIUM [CHEM] AM - Plan Plan:: Acute: [place] Cholecystitis S/p Laparoscopic Cholecystectomy. Received IV antibiotics and now will discontinue it per Dr. Hines. Leukocytosis with WBC of 15.43-->11.67-->10.84 and Neutrophils # of 13.40-->8.89 , Improving. This is 2/2 above, Improved. Treat underlying cause. Transaminitis. AST or 197-->77-->118 and ALT of 207-->140-->151, Slightly went up today. Likely 2/2 above. Hold statin, avoid acetaminophen, and monitor levels. Hypertriglyceridemia as lipid panel. Intolerant to statin but on [place]-3 supplement. Will continue once po meal. Hypoalbuminemia. Albumin of 3.3-->2.7-->2.4. Dietary consult for low protein state once PO meals. Obesity Class I. BMI of 32.6. Dietary consult for weight management when appropriate. Resolved: S/p Chest Pain r/o ACS. Serial Troponin and EKG were all negative. Lipid Panel- shows dyslipidemia. S/p Bladder Sling and Rectocele Surgery, Stable S/p Hyperbiluribinemia. Total Bili of 3.4-->0.9. No obvious signs of jaundice. This is likely related to above. Will monitor. Chronic: Glaucoma, [place], HTN, Recurrent PNA/Bronchitis, GERD, IBS, Urinary Incontinence, Hx/o Cystocele, Breast Pain, OA/DJD, Generalized Weakness, Migraines, Hypothyroidism, Hx/o Thyroid Nodule, Hx/o Enlarged Thyroid, Anemia, Eczema, Hx/o Hair Loss, Actinic Keratosis, Facial Flushing, Seborrheic Keratosis , Depression and Obesity Class I Plan: She is doing relatively well and tolerating solid diet. Routine AM Labs. Possible discharge in AM is remains stable per Dr. Hines. PRN pain medications. DVT/Stroke Prophylaxis. Encourage to use IS as directed and ambulate as tolerated. Code status is full.
[2019-08-11] MEDS ORDERED: Acetaminophen/HYDROcodone 325-5 MG Tab PO PRN (08:44)
[2019-08-11] MEDS ORDERED: Orphenadrine 100 MG Tab.ER PO PRN (09:27)
[2019-08-11] MEDS ORDERED: Furosemide 20 MG/2 ML VIAL IVPUSH ONE (11:00)
--- NOTE | 2019-08-11 11:16 | PCM.SURGPN ---
- General Info Date of Service: 08/11/19 POD#: 1 Post-Op Diagnosis: Acute cholecystitis Functional Status: Reports: Pain Controlled, Tolerating Diet, Urinating - Patient Data Vitals - Most Recent: Last Vital Signs Temp 98.4 F 08/11/19 04:30 Pulse 89 08/11/19 04:30 Resp 17 08/11/19 04:30 BP 143/68 H 08/11/19 04:30 Pulse Ox 97 08/11/19 04:30 Weight - Most Recent: 89.766 kg I&O - Last 24 Hours: Intake & Output 08/10/19 08/11/19 08/11/19 22:59 06:59 14:59 Intake Total 400 910 Output Total 400 1450 Balance 0 -540 Lab Results Last 24 Hrs: Laboratory Results - last 24 hr 08/09/19 08/11/19 08/11/19 Range/Units 12:35 06:04 06:04 WBC 10.84 H (3.98-10.04) K/mm3 RBC 3.31 L (3.98-5.22) M/mm3 Hgb 10.6 L (11.2-15.7) gm/dl Hct 32.8 L (34.1-44.9) % MCV 99.1 H (79.4-94.8) fl MCH 32.0 (25.6-32.2) pg MCHC 32.3 (32.2-35.5) g/dl RDW Std Deviation 47.1 H (36.4-46.3) fL Plt Count 277 (182-369) K/mm3 MPV 10.5 (9.4-12.3) fl Neut % (Auto) 85.8 H (34.0-71.1) % Lymph % (Auto) 9.0 L (19.3-51.7) % [place] % (Auto) 4.9 (4.7-12.5) % Eos % (Auto) 0 L (0.7-5.8) Baso % (Auto) 0.0 L (0.1-1.2) % Neut # (Auto) 9.30 H (1.56-6.13) K/mm3 Lymph # (Auto) 0.98 L (1.18-3.74) K/mm3 [place] # (Auto) 0.53 H (0.24-0.36) K/mm3 Eos # (Auto) 0.00 L (0.04-0.36) K/mm3 Baso # (Auto) 0.00 L (0.01-0.08) K/mm3 Manual Slide Review Abnormal smear Sodium 140 (136-145) mEq/L Potassium 4.0 (3.5-5.1) mEq/L Chloride 105 (98-107) mEq/L Carbon Dioxide 25 (21-32) mEq/L Anion Gap 14.0 (5-15) BUN 12 (7-18) mg/dL Creatinine 0.6 (0.55-1.02) mg/dL Est Cr Clr Drug Dosing 80.72 mL/min Estimated GFR (MDRD) > 60 (>60) mL/min BUN/Creatinine Ratio 20.0 H (14-18) Glucose 99 (80-115) mg/dL Calcium 8.3 L (8.5-10.1) mg/dL Magnesium 2.0 (1.8-2.4) mg/dl Total Bilirubin 0.6 (0.2-1.0) mg/dL AST 118 H (15-37) U/L ALT 151 H (14-59) U/L Alkaline Phosphatase 159 H (46-116) U/L C-Reactive Protein 11.7 H* (<1.0) mg/dL Total Protein 5.5 L (6.4-8.2) g/dl Albumin 2.4 L (3.4-5.0) g/dl Globulin 3.1 gm/dL Albumin/Globulin Ratio 0.8 L (1-2) Procalcitonin 0.10 H (<0.10) ng/mL [place] Results Last 24 Hrs: Microbiology 08/09/19 17:00 Aerobic Blood Culture - Preliminary Blood - Venous - Lab Draw NO GROWTH AFTER 1 DAY Anaerobic Blood Culture - Preliminary NO GROWTH AFTER 1 DAY 08/09/19 17:25 Aerobic Blood Culture - Preliminary Blood - Venous NO GROWTH AFTER 1 DAY Anaerobic Blood Culture - Preliminary NO GROWTH AFTER 1 DAY Med Orders - Current: Current Medications Acetaminophen (Tylenol) 650 mg PO Q4H PRN PRN Reason: Pain (Mild 1-3)/fever Hydrocodone Bitart/Acetaminophen ([place] 325-5 Mg) 1 tab PO Q4H PRN PRN Reason: Pain Last Admin: 08/11/19 10:06 Dose: 1 tab Albuterol/Ipratropium (Duoneb 3.0-0.5 Mg/3 Ml) 3 ml NEB Q4H PRN PRN Reason: Shortness Of Breath/wheezing Docusate Sodium (Colace) 100 mg PO BID [facility] Enoxaparin Sodium (Lovenox) 40 mg SUBCUT DAILY [facility] Last Admin: 08/11/19 08:26 Dose: 40 mg Estradiol (Estradiol) 1.5 mg PO DAILY [facility] Finasteride (Proscar) 1.25 mg PO DAILY [facility] Fluticasone Propionate (Flonase) 0 gm NASBOTH BID [facility] Hydromorphone HCl (Dilaudid) 0.5 mg IVPUSH Q2H PRN PRN Reason: Pain (severe 7-10) Last Admin: 08/11/19 08:44 Dose: 0.5 mg Promethazine HCl 6.25 mg/ (Sodium Chloride) 50.25 mls @ 100 mls/hr IV Q6H PRN PRN Reason: Nausea/Vomiting Ketorolac Tromethamine (Toradol) 30 mg IV Q6H PRN PRN Reason: Pain (moderate 4-6) Last Admin: 08/11/19 04:18 Dose: 30 mg Latanoprost (Xalatan 0.005% Ophth Soln) 0 ml EYERT BEDTIME [facility] Levothyroxine Sodium (Levothyroxine) 150 mcg PO ACBREAKFAST [facility] Losartan Potassium (Cozaar) 12.5 mg PO DAILY [facility] Miscellaneous Information (Remove Patch) 1 ea TRDERM ONETIME ONE Stop: 08/13/19 11:01 Last Admin: 08/11/19 08:30 Dose: 1 ea Non-Formulary Medication (Betamethasone/Propylene Glyc [Betamethasone Dp Aug 0.05% Oin]) 1 applic TOP BID PRN PRN Reason: Bee/Wasp sting Non-Formulary Medication (Brimonidine/Timolol) 1 drop EYERT BID [facility] Non-Formulary Medication (Spironolactone [Spironolactone]) 150 mg PO DAILY [facility] Ondansetron HCl (Zofran) 4 mg IV Q6H PRN PRN Reason: Nausea/Vomiting Last Admin: 08/10/19 09:43 Dose: 4 mg Orphenadrine Citrate (Norflex) 100 mg PO BID PRN PRN Reason: Pain Oxycodone/Acetaminophen (Percocet 325-5 Mg) 2 tab PO Q6H PRN PRN Reason: Pain Pantoprazole Sodium (Protonix) 40 mg PO DAILY@0700 [facility] Prednisolone Acetate (Pred Forte 1% Ophth Susp) 0 ml EYELF DAILY [facility] Sodium Chloride (Saline Flush) 10 ml FLUSH ASDIRECTED PRN PRN Reason: Keep Vein Open Last Admin: 08/09/19 12:40 Dose: 10 ml Temazepam (Restoril) 15 mg PO BEDTIME PRN PRN Reason: Sleep Last Admin: 08/10/19 21:28 Dose: 15 mg Valacyclovir HCl (Valtrex) 500 mg PO DAILY [facility] Discontinued Medications Cefazolin Sodium (Ancef) Confirm Administered Dose 1 gm .ROUTE .STK-MED ONE Stop: 08/10/19 14:09 Cefazolin Sodium (Ancef) Confirm Administered Dose 1 gm .ROUTE .STK-MED ONE Stop: 08/10/19 14:09 Dexamethasone (Dexamethasone) Confirm Administered Dose 20 mg .ROUTE .STK-MED ONE Stop: 08/10/19 14:04 Diazepam (Valium) 5 mg IVPUSH ONETIME ONE Stop: 08/09/19 16:49 Last Admin: 08/09/19 16:55 Dose: 5 mg Fentanyl (Sublimaze) Confirm Administered Dose 250 mcg .ROUTE .STK-MED ONE Stop: 08/10/19 14:05 Fentanyl (Sublimaze) 50 mcg IVPUSH Q5M PRN PRN Reason: Pain Stop: 08/10/19 19:00 Last Admin: 08/10/19 18:19 Dose: 50 mcg Finasteride (Proscar) 1.25 mg PO DAILY [facility] Furosemide (Lasix) 20 mg IVPUSH NOW ONE Stop: 08/11/19 11:01 Glucagon (Glucagen) Confirm Administered Dose 1 mg .ROUTE .STK-MED ONE Stop: 08/10/19 16:29 Glycopyrrolate () Confirm Administered Dose 1 mg .ROUTE .STK-MED ONE Stop: 08/10/19 17:10 Hydromorphone HCl (Dilaudid) 1 mg IVPUSH ONETIME ONE Stop: 08/09/19 12:23 Last Admin: 08/09/19 12:37 Dose: 1 mg Hydromorphone HCl (Dilaudid) 0.5 mg IVPUSH ONETIME ONE Stop: 08/09/19 15:18 Last Admin: 08/09/19 15:29 Dose: 0.5 mg Hydromorphone HCl (Dilaudid) 0.5 mg IVPUSH Q10M PRN PRN Reason: Pain (severe 7-10) Stop: 08/10/19 19:00 Last Admin: 08/10/19 18:48 Dose: 0.5 mg Sodium Chloride (Normal Saline) 1,000 mls @ 125 mls/hr IV ASDIRECTED [facility] Last Admin: 08/09/19 12:40 Dose: 125 mls/hr Sodium Chloride (Normal Saline) 100 mls @ 4 mls/sec IV ONETIME ONE Stop: 08/09/19 12:58 Last Admin: 08/09/19 13:21 Dose: 4 mls/sec Levofloxacin/Dextrose 750 mg/ (Premix) 150 mls @ 100 mls/hr IV ONETIME ONE Stop: 08/09/19 17:47 Last Admin: 08/09/19 16:45 Dose: Not Given Metronidazole 500 mg/ Premix 100 mls @ 100 mls/hr IV ONETIME ONE Stop: 08/09/19 17:31 Last Admin: 08/09/19 17:43 Dose: 100 mls/hr Meropenem 1 gm/ Sodium (Chloride) 100 mls @ 200 mls/hr IV ONETIME ONE Stop: 08/09/19 17:13 Last Admin: 08/09/19 18:46 Dose: Not Given Meropenem 1 gm/ Sodium (Chloride) 100 mls @ 200 mls/hr IV Q8H [facility] Metronidazole 500 mg/ Premix 100 mls @ 100 mls/hr IV Q8H [facility] Last Admin: 08/11/19 09:08 Dose: 100 mls/hr Lactated Ringer's (Ringers, Lactated) 1,000 mls @ 50 mls/hr IV ASDIRECTED [facility] Last Admin: 08/09/19 18:51 Dose: 50 mls/hr Meropenem/Sodium Chloride 500 (mg/ Premix) 50 mls @ 100 mls/hr IV Q6H [facility] Last Admin: 08/11/19 08:29 Dose: 100 mls/hr Lactated Ringer's (Ringers, Lactated) 1,000 mls @ 75 mls/hr IV ASDIRECTED [facility] Last Admin: 08/10/19 21:44 Dose: 75 mls/hr Lidocaine HCl (Xylocaine-Mpf 1%) Confirm Administered Dose 4 mls @ as directed .ROUTE .[facility]-MED ONE Stop: 08/10/19 14:08 Lactated Ringer's (Ringers, Lactated) Confirm Administered Dose 1,000 mls @ as directed .ROUTE .[facility]-MED ONE Stop: 08/10/19 15:04 Lactated Ringer's (Ringers, Lactated) Confirm Administered Dose 1,000 mls @ as directed .ROUTE .[facility] ONE Stop: 08/10/19 15:04 Sodium Chloride (Normal Saline) Confirm Administered Dose 20 mls @ as directed .ROUTE .[facility] ONE Stop: 08/10/19 15:17 Sodium Chloride (Normal Saline) Confirm Administered Dose 10 mls @ as directed .ROUTE .[facility] ONE Stop: 08/10/19 15:23 Iopamidol (Isovue-370 (76%)) 100 ml IVPUSH ONETIME ONE Stop: 08/09/19 12:58 Last Admin: 08/09/19 13:21 Dose: 100 ml Iopamidol (Isovue-300 (61%)) Confirm Administered Dose 50 ml .ROUTE .[facility] ONE Stop: 08/10/19 15:15 Last Admin: 08/10/19 16:33 Dose: 96 ml Iopamidol (Isovue-300 (61%)) Confirm Administered Dose 50 ml .ROUTE .[facility]-MED ONE Stop: 08/10/19 16:33 Iopamidol (Isovue-300 (61%)) Confirm Administered Dose 50 ml .ROUTE .[facility]-MED ONE Stop: 08/10/19 16:39 Ketamine HCl (Ketalar) Confirm Administered Dose 500 mg .ROUTE .[facility]-MED ONE Stop: 08/10/19 15:27 Ketorolac Tromethamine (Toradol) Confirm Administered Dose 30 mg .ROUTE .[facility]- [facility] ONE Stop: 08/10/19 14:08 Lidocaine HCl (Xylocaine-Mpf 1%) Confirm Administered Dose 30 ml .ROUTE .[facility]- MED ONE Stop: 08/10/19 13:39 Last Admin: 08/10/19 15:43 Dose: 30 ml Lorazepam (Ativan) 0.5 mg IVPUSH ONETIME ONE Stop: 08/09/19 14:11 Last Admin: 08/09/19 14:20 Dose: 0.5 mg Lorazepam (Ativan) 2 mg IVPUSH ONETIME ONE Stop: 08/11/19 07:01 Midazolam HCl (Versed 1 Mg/Ml) Confirm Administered Dose 2 mg .ROUTE .STK-MED ONE Stop: 08/10/19 14:05 Neostigmine Methylsulfate (Neostigmine) Confirm Administered Dose 5 mg .ROUTE .STK-MED ONE Stop: 08/10/19 17:10 Ondansetron HCl (Zofran) 4 mg IVPUSH ONETIME ONE Stop: 08/09/19 12:22 Last Admin: 08/09/19 12:35 Dose: 4 mg Ondansetron HCl (Zofran) Confirm Administered Dose 4 mg .ROUTE .ST-MED ONE Stop: 08/10/19 14:04 Ondansetron HCl (Zofran) 4 mg IVPUSH ONETIME PRN PRN Reason: Nausea/Vomiting Stop: 08/10/19 19:00 Last Admin: 08/10/19 18:24 Dose: 4 mg Phenylephrine HCl (Phenylephrine In Ns 100 Mcg/Ml) Confirm Administered Dose 1 mg .ROUTE .STK-MED ONE Stop: 08/10/19 15:37 Propofol (Diprivan 20 Ml) Confirm Administered Dose 200 mg .ROUTE .STK-MED ONE Stop: 08/10/19 14:04 Propofol (Diprivan 20 Ml) Confirm Administered Dose 200 mg .ROUTE .STK-MED ONE Stop: 08/10/19 14:57 Rocuronium Stryker (Zemuron) Confirm Administered Dose 100 mg .ROUTE .STK-MED ONE Stop: 08/10/19 14:04 Scopolamine (Transderm-Scop) 1.5 mg TOP ONETIME ONE Stop: 08/10/19 11:01 Last Admin: 08/10/19 11:21 Dose: 1.5 mg Sodium Chloride (Normal Saline) Confirm Administered Dose 50 ml .ROUTE .STK-MED ONE Stop: 08/10/19 15:26 Last Admin: 08/10/19 16:33 Dose: 130 ml Sodium Chloride (Normal Saline) Confirm Administered Dose 50 ml .ROUTE .STK-MED ONE Stop: 08/10/19 16:31 Sodium Chloride (Normal Saline) Confirm Administered Dose 50 ml .ROUTE .STK-MED ONE Stop: 08/10/19 16:33 Sodium Chloride (Normal Saline) Confirm Administered Dose 50 ml .ROUTE .STK-MED ONE Stop: 08/10/19 16:39 Temazepam (Restoril) 7.5 mg PO BEDTIME PRN PRN Reason: Sleep - Exam Wound/Incisions: Healing Well, No Drainage General: Alert, Oriented, Cooperative, No Acute Distress HEENT: Pupils Equal Lungs: Clear to Auscultation Cardiovascular: Regular Rate, Regular Rhythm GI/Abdominal Exam: Soft, No Mass, Tender (appropriate pollo-incisional tenderness ), Other (incision appears well.) Sepsis Event Note - Evaluation Sepsis Screening Result: No Definite Risk - Focused Exam Vital Signs: Vital Signs Temp Pulse Resp BP Pulse Ox 08/11/19 04:30 98.4 F 89 17 143/68 H 97 08/11/19 01:08 98.1 F 100 17 139/60 91 L Date Exam was Performed: 08/11/19 Time Exam was Performed: 11:10 - Problem List Review Problem List Initiated/Reviewed/Updated: No - My Orders Last 24 Hours: Active Orders 24 hr Category Date Time Status Antiembolic Devices [RC] .Routine Care 08/10/19 18:19 Active Communication Order [RC] ASDIRECTED Care 08/10/19 16:51 Active Cooling Warming Measures [RC] ASDIRECTED Care 08/10/19 16:51 Active Oxygen Therapy [RC] PRN Care 08/10/19 18:19 Active Pulse Oximetry [RC] ASDIRECTED Care 08/10/19 16:51 Active RT Incentive Spirometry [RC] Q1HWA Care 08/10/19 18:19 Active Up With Assistance [RC] ASDIRECTED Care 08/10/19 18:19 Active Up ad [place] [RC] ASDIRECTED Care 08/10/19 18:19 Active Urinary Catheter Assessment [RC] ASDIRECTED Care 08/10/19 18:19 Active VTE/DVT Education [RC] PER UNIT ROUTINE Care 08/10/19 18:19 Active Vital Signs [RC] PER UNIT ROUTINE Care 08/10/19 18:19 Active Regular Diet [DIET] Diet 08/11/19 Lunch Active C-REACTIVE PROTEIN [CHEM] AM Lab 08/12/19 05:11 Ordered C-REACTIVE PROTEIN [CHEM] AM Lab 08/13/19 05:11 Ordered C-REACTIVE PROTEIN [CHEM] AM Lab 08/14/19 05:11 Ordered C-REACTIVE PROTEIN [CHEM] AM Lab 08/15/19 05:11 Ordered C-REACTIVE PROTEIN [CHEM] AM Lab 08/16/19 05:11 Ordered CBC WITH AUTO DIFF [HEME] AM Lab 08/12/19 05:11 Ordered CBC WITH AUTO DIFF [HEME] AM Lab 08/13/19 05:11 Ordered CBC WITH AUTO DIFF [HEME] AM Lab 08/14/19 05:11 Ordered CBC WITH AUTO DIFF [HEME] AM Lab 08/15/19 05:11 Ordered CBC WITH AUTO DIFF [HEME] AM Lab 08/16/19 05:11 Ordered COMPREHENSIVE METABOLIC PN,CMP [CHEM] AM Lab 08/12/19 05:11 Ordered COMPREHENSIVE METABOLIC PN,CMP [CHEM] AM Lab 08/13/19 05:11 Ordered COMPREHENSIVE METABOLIC PN,CMP [CHEM] AM Lab 08/14/19 05:11 Ordered COMPREHENSIVE METABOLIC PN,CMP [CHEM] AM Lab 08/15/19 05:11 Ordered COMPREHENSIVE METABOLIC PN,CMP [CHEM] AM Lab 08/16/19 05:11 Ordered MAGNESIUM [CHEM] AM Lab 08/12/19 05:11 Ordered MAGNESIUM [CHEM] AM Lab 08/13/19 05:11 Ordered MAGNESIUM [CHEM] AM Lab 08/14/19 05:11 Ordered MAGNESIUM [CHEM] AM Lab 08/15/19 05:11 Ordered MAGNESIUM [CHEM] AM Lab 08/16/19 05:11 Ordered Acetaminophen/HYDROcodone [[place] 325-5 MG] Med 08/11/19 08:44 Active 1 tab PO Q4H PRN Acetaminophen/oxyCODONE [Percocet 325-5 MG] Med 08/11/19 10:50 Active 2 tab PO Q6H PRN Betamethasone/Propylene Glyc [Betamethasone Dp Aug 0.05 Med 08/11/19 09:27 Ordered % Oin] 1 applic TOP BID PRN Brimonidine/Timolol Med 08/11/19 21:00 Ordered 1 drop EYERT BID Docusate Sodium [Colace] Med 08/11/19 11:15 Active 100 mg PO BID Finasteride [Proscar] Med 08/12/19 09:00 Active 1.25 mg PO DAILY Fluticasone Propionate [Flonase] Med 08/11/19 21:00 Active 0 gm NASBOTH BID Latanoprost [Xalatan 0.005% Ophth Soln] Med 08/11/19 21:00 Active 0 ml EYERT BEDTIME Levothyroxine Med 08/12/19 06:00 Active 150 mcg PO ACBREAKFAST Losartan [Cozaar] Med 08/12/19 09:00 Active 12.5 mg PO DAILY Orphenadrine [Norflex] Med 08/11/19 09:27 Active 100 mg PO BID PRN Pantoprazole [ProTONIX] Med 08/12/19 07:00 Active 40 mg PO DAILY@0700 Remove Patch Med 08/13/19 11:00 Once 1 ea TRDERM ONETIME ONE Spironolactone [Spironolactone] Med 08/12/19 09:00 Ordered 150 mg PO DAILY Temazepam [Restoril] Med 08/10/19 20:39 Active 15 mg PO BEDTIME PRN estradioL Med 08/12/19 09:00 Active 1.5 mg PO DAILY prednisoLONE acetate [Pred Forte 1% Ophth Susp] Med 08/12/19 09:00 Active 0 ml EYELF DAILY valACYclovir [Valtrex] Med 08/12/19 09:00 Active 500 mg PO DAILY Abdominal Binder [OM.PC] Routine Oth 08/11/19 11:03 Ordered DVT/VTE Prophylaxis Reflex [OM.PC] Routine Oth 08/10/19 18:19 Ordered Schedule Procedure [COMM] Routine Oth 08/10/19 13:57 Ordered Medication Orders Acetaminophen (Tylenol) 650 mg PO Q4H PRN PRN Reason: Pain (Mild 1-3)/fever Hydrocodone Bitart/Acetaminophen ([place] 325-5 Mg) 1 tab PO Q4H PRN PRN Reason: Pain Last Admin: 08/11/19 10:06 Dose: 1 tab Albuterol/Ipratropium (Duoneb 3.0-0.5 Mg/3 Ml) 3 ml NEB Q4H PRN PRN Reason: Shortness Of Breath/wheezing Docusate Sodium (Colace) 100 mg PO BID [facility] Enoxaparin Sodium (Lovenox) 40 mg SUBCUT DAILY [facility] Last Admin: 08/11/19 08:26 Dose: 40 mg Admin: 08/10/19 12:27 Dose: Estradiol (Estradiol) 1.5 mg PO DAILY [facility] Finasteride (Proscar) 1.25 mg PO DAILY [facility] Fluticasone Propionate (Flonase) 0 gm NASBOTH BID [facility] Hydromorphone HCl (Dilaudid) 0.5 mg IVPUSH Q2H PRN PRN Reason: Pain (severe 7-10) Last Admin: 08/11/19 08:44 Dose: 0.5 mg Admin: 08/11/19 06:14 Dose: 0.5 mg Admin: 08/11/19 01:11 Dose: 0.5 mg Admin: 08/10/19 21:28 Dose: 0.5 mg Admin: 08/10/19 12:42 Dose: 0.5 mg Admin: 08/10/19 09:42 Dose: 0.5 mg Admin: 08/10/19 07:33 Dose: 0.5 mg Admin: 08/10/19 02:33 Dose: 0.5 mg Admin: 08/10/19 00:29 Dose: 0.5 mg Admin: 08/09/19 20:34 Dose: 0.5 mg Admin: 08/09/19 18:12 Dose: 0.5 mg Promethazine HCl 6.25 mg/ (Sodium Chloride) 50.25 mls @ 100 mls/hr IV Q6H PRN PRN Reason: Nausea/Vomiting Ketorolac Tromethamine (Toradol) 30 mg IV Q6H PRN PRN Reason: Pain (moderate 4-6) Last Admin: 08/11/19 04:18 Dose: 30 mg Admin: 08/10/19 05:34 Dose: 30 mg Admin: 08/09/19 22:40 Dose: 30 mg Latanoprost (Xalatan 0.005% Ophth Soln) 0 ml EYERT BEDTIME [facility] Levothyroxine Sodium (Levothyroxine) 150 mcg PO ACBREAKFAST [facility] Losartan Potassium (Cozaar) 12.5 mg PO DAILY [facility] Miscellaneous Information (Remove Patch) 1 ea TRDERM ONETIME ONE Stop: 08/13/19 11:01 Last Admin: 08/11/19 08:30 Dose: 1 ea Non-Formulary Medication (Betamethasone/Propylene Glyc [Betamethasone Dp Aug 0.05% Oin]) 1 applic TOP BID PRN PRN Reason: Bee/Wasp sting Non-Formulary Medication (Brimonidine/Timolol) 1 drop EYERT BID [facility] Non-Formulary Medication (Spironolactone [Spironolactone]) 150 mg PO DAILY [facility] Ondansetron HCl (Zofran) 4 mg IV Q6H PRN PRN Reason: Nausea/Vomiting Last Admin: 08/10/19 09:43 Dose: 4 mg Orphenadrine Citrate (Norflex) 100 mg PO BID PRN PRN Reason: Pain Oxycodone/Acetaminophen (Percocet 325-5 Mg) 2 tab PO Q6H PRN PRN Reason: Pain Pantoprazole Sodium (Protonix) 40 mg PO DAILY@0700 [facility] Prednisolone Acetate (Pred Forte 1% Ophth Susp) 0 ml EYELF DAILY [facility] Sodium Chloride (Saline Flush) 10 ml FLUSH ASDIRECTED PRN PRN Reason: Keep Vein Open Last Admin: 08/09/19 12:40 Dose: 10 ml Temazepam (Restoril) 15 mg PO BEDTIME PRN PRN Reason: Sleep Last Admin: 08/10/19 21:28 Dose: 15 mg Valacyclovir HCl (Valtrex) 500 mg PO DAILY [facility] - Plan Plan (Free Text/Narrative):: Patient is POD1 s/p lap main for acute cholecystitis. Cholangiogram was negative and Tbili today is normal. Patient starting to feel better. Plan - Advance diet as tolerated - Discontinue antibiotics - Dc IVF - Encourage ambulation TID - provide patient with abdominal binder - continue oral pain meds and colace for stool softener Disposition: Patient can leave today if able to ambulate and pain is well controlled. If not, she can be monitored until tomorrow. Anticipate discharge likely tomorrow. She will need Percocet and colace for discharge tomorrow. She should have a follow up appointment with me in 2 weeks.
[2019-08-11] MEDS: Docusate Sodium 100 MG Cap PO SCH ×2 (11:25→20:45)
[2019-08-11] MEDS ORDERED: [UNRECOGNIZED DRUG - REMARK] PO PRN (13:32)
[2019-08-11] MEDS: Acetaminophen/oxyCODONE 325-5 MG Tab PO PRN ×2 (15:50→21:46)
[2019-08-11] MEDS: Timolol Maleate 0.5% Ophth Soln 5 ML Bottle EYERT SCH (20:46)
[2019-08-11] MEDS: Brimonidine 0.2% Ophth Soln 5 ML Bottle EYERT SCH (20:46)
[2019-08-11] MEDS: Fluticasone Propionate Nasal Spray 16 GM Bottle NASBOTH SCH (20:46)
[2019-08-11] MEDS ORDERED: Latanoprost 0.005% Ophth Soln 2.5 ML Bottle EYERT SCH (21:00)
[2019-08-11] MEDS: Temazepam 7.5 MG Cap PO PRN (21:46)
[2019-08-12] MEDS: Ketorolac 30 MG/ML SDV IV PRN (03:07)
[2019-08-12] MEDS ORDERED: Levothyroxine 75 MCG Tab PO SCH (06:00)
[2019-08-12] MEDS ORDERED: Pantoprazole 40 MG Tab.CR PO SCH (07:00)
[2019-08-12] MEDS ORDERED: Finasteride 5 MG Tab PO SCH (09:00)
[2019-08-12] MEDS ORDERED: [UNRECOGNIZED DRUG - REMARK] PO SCH (09:00)
[2019-08-12] MEDS ORDERED: Spironolactone 25 MG Tab PO SCH (09:00)
[2019-08-12] MEDS ORDERED: Losartan 25 MG Tab PO SCH (09:00)
[2019-08-12] MEDS ORDERED: prednisoLONE Acetate 1% Ophth Susp 5 ML Bottle EYELF SCH (09:00)
[2019-08-12] MEDS ORDERED: Estradiol 0.5 MG Tab PO SCH (09:00)
[2019-08-12] MEDS ORDERED: Spironolactone 100 MG Tab PO SCH (09:00)
[2019-08-12] MEDS ORDERED: valACYclovir 500 MG Tab PO SCH (09:00)
[2019-08-12] MEDS ORDERED: Potassium Chloride 20 MEQ Tab.ER PO ONE (09:14)
[2019-08-12] MEDS: Enoxaparin 40 MG/0.4 ML Syringe SUBCUT SCH (09:47)
[2019-08-12] MEDS: Bumetanide 1 MG/4 ML MDV IVPUSH ONE ×2 (09:48→10:25)
[2019-08-12] MEDS: Acetaminophen 325 MG Tab PO PRN ×2 (09:51→14:01)
[2019-08-12] MEDS: Docusate Sodium 100 MG Cap PO SCH (09:52)
[2019-08-12] MEDS: Brimonidine 0.2% Ophth Soln 5 ML Bottle EYERT SCH (09:53)
[2019-08-12] MEDS: Timolol Maleate 0.5% Ophth Soln 5 ML Bottle EYERT SCH (09:53)
[2019-08-12] MEDS: Fluticasone Propionate Nasal Spray 16 GM Bottle NASBOTH SCH (09:54)
[2019-08-12] MEDS ORDERED: Bumetanide 1 MG Tab PO ONE (10:25)
--- NOTE | 2019-08-12 10:43 | PCM.DCSUM1 ---
Discharge Summary - Hospital Course HPI Initial Comments: This is a 64 yo white female with past medical hx/o Glaucoma, AR, HTN, Recurrent PNA/Bronchitis, GERD, IBS, Urinary Incontinence, Hx/o Cystocele, Breast Pain, OA/DJD, Generalized Weakness, Migraines, Hypothyroidism, Hx/o Thyroid Nodule, Hx/o Enlarged Thyroid, Anemia, Eczema, Hx/o Hair Loss, Actinic Keratosis, Facial Flushing, Seborrheic Keratosis, Depression and Obesity Class I who presents to ED with complaints of non-radiating chest discomfort that started this morning. She describes her discomfort as cramp like in nature. She endorses nausea w/o emesis and a fever yesterday. She also reports having some abdominal pain after having undergone bladder sling and rectocele surgery this past Saturday. She reports no hematuria or dysuria. Her initial work up in ED shows a CBC remarkable for WBC of 15.43, RBC of 3.90, MCV of 97.9, RDW of 48, Neutrophils of 86.8%, Lymphocytes of 6.9%, Eosinophils of 0.5%, Neutrophils # of 13.40, Lymphocyte # of 1.07, and Monocyte # of 0.83. Her Chemistry is significant for Total Bilirubin of 13.3, AST of 97, ALT of 207 , CRP of 3.1, and Albumin of 3.3. He UA is negative for UTI. Her Initial troponin and EKG are both negative. Her chest CTA report read as slightly abnormal appearing gallbladder and no findings of PE. Her Abdominal US report read as slightly dilated gallbladder with sludge and gallbladder wall thickening within minimal pericholecystic fluid. Difficult to exclude acalculus cholecystitis. Patient is coming in primarily for further management of acalculus cholecystitis. Diagnosis: Stroke: No Modified [place] Scale: No Symptoms at All Modified [place] Scale Score: 0 - Discharge Data Discharge Date: 08/12/19 Discharge Disposition: Home, Self-Care 01 Condition: Good - Referral to Home Health Primary Care Physician: Andriy Barclay MD - Patient Summary/Data Operative Procedure(s) Performed: Lap-Ramya Complications: None Consults: Consultations 08/09/19 17:23 Consult to Physician [CONS] Routine 08/09/19 17:46 Consult to Case Management/Spike Machine Operator [CONS] Routine Consult to [employer] [CONS] Routine Consult to Spiritual Care [CONS] Routine OT Evaluation and Treatment [CONS] Routine PT Evaluation and Treatment [CONS] Routine Labs Pending at D/C: None Recommended Follow-up Testing/Procedures: None Planned Operative Procedure(s) after DC: None Hospital Course: Patient was primarily admitted for further management of acalculous cholecystitis. She was treated with intravenous antibiotics and underwent laparoscopic cholecystectomy performed by Dr. Hines. She did well during and after the procedure without any complications. Her hospital course was uncomplicated and the rest of her chronic medical illness remained stable during this hospitalization. Once medically stable, she was then discharged home. She was advised to use incentive spirometry, to ambulate, and be mobile to prevent post operative pneumonia and or blood clot. Additionally, she was advised to follow up with Dr. Hines as scheduled after discharge. The patient expressed understanding and in agreement with the plans as discussed above. All questions and concerns answered. - Patient Instructions Diet: Usual Diet as Tolerated Activity: As Tolerated Driving, Other: Do not drive today Showering/Bathing: May Shower Wound/Incision Care: Keep Operative Site/Wound Site Clean and Dry Notify Provider of: Fever, Increased Pain, Drainage, Nausea and/or Vomiting Other/Special Instructions: - Please take all new medications as directed. - Resume all home medications and routine home activities as tolerated. - Recommend follow up CBC, Mg and CMP next 1 week through your PCP's office. - Absolutely avoid alcohol while taking Percocet. Cautioned on operating any motor vehicles. Percocet is known to cause memory and attention impairment. - Use Incentive Spirometry for a week as directed. - Ambulate as many times as you can to avoid blood clot. - Recommend to keep follow appointment with general surgery. - Call or follow up with your PCP for any questions or concerns after discharge. - Follow up with your PCP in 1 week with repeat labs. - Come back or seek immediate care should your symptoms persist or get worse - Discharge Plan *PRESCRIPTION DRUG MONITORING PROGRAM REVIEWED*: Not Applicable *COPY OF PRESCRIPTION DRUG MONITORING REPORT IN PATIENT KYMBERLY: Not Applicable Prescriptions/Med Rec: Acetaminophen/oxyCODONE [Percocet 325-5 MG] 1 each PO DAILY PRN #3 tab PRN Reason: Pain Docusate Sodium/Sennosides [Senokot-S] 1 each PO ASDIRECTED #15 tablet Potassium Chloride 40 meq PO ONETIME #1 cup Home Medications: Home Meds Brimonidine Tartrate/Timolol [Combigan 0.2%-0.5% Eye Drops] 1 drop EYERT BID [History] Finasteride 1.25 mg PO DAILY 08/03/18 [History] Flunisolide [Nasalide Nasal [place]] 2 spray NASBOTH BID 08/03/18 [History] Levothyroxine 150 mcg PO ACBREAKFAST 08/03/18 [History] Omeprazole 40 mg PO DAILY 08/03/18 [History] Orphenadrine [Norflex] 100 mg PO BID PRN 08/03/18 [History] Spironolactone 150 mg PO DAILY 08/03/18 [History] Travoprost [Travatan Z] 1 drop EYERT BEDTIME 08/03/18 [History] estradioL [Estradiol] 1.5 mg PO DAILY 08/03/18 [History] valACYclovir HCl [Valtrex] 500 mg PO DAILY 08/03/18 [History] Cyanocobalamin (Vitamin B-12) [Vitamin B-12] 5,000 mcg PO DAILY 03/11/19 [ History] EPINEPHrine [Epipen] 0.3 mg IM ONETIME PRN 03/11/19 [History] Prednisolone Acetate/Pf [Prednisolone Acet 1% Eye Drop] 1 drop EYELF DAILY 08/07 [History] Acetaminophen/oxyCODONE [Percocet 325-5 MG] 2 tab PO Q6H PRN 08/09/19 [History] Betamethasone/Propylene Glyc [Betamethasone Dp Aug 0.05% Oin] 1 applic TOP BID PRN 08/09/19 [History] Biotin 10,000 mcg PO DAILY 08/09/19 [History] Calcium Citrate/Vitamin D3 [Calcium Citrate-Vit D3 Caplet] 1 tab PO DAILY [History] Cholecalciferol (Vitamin D3) [Vitamin D3] 1,000 unit PO DAILY 08/09/19 [History] Ferrous Sulfate 325 mg PO WEEKLY 08/09/19 [History] Ibuprofen 600 mg PO Q4H PRN 08/09/19 [History] Loratadine [Claritin] 10 mg PO DAILY PRN 08/09/19 [History] Multivit-Min/Iron/Folic/Lutein [Centrum Silver Women Tablet] 1 tab PO DAILY 12/22 [History] Ondansetron [Zofran ODT] 4 mg PO Q4H PRN 08/09/19 [History] Vitamin B6-pyridOXINE [Vitamin B6] 200 mg PO DAILY 08/09/19 [History] predniSONE [Prednisone] 20 - 40 mg PO ASDIRECTED PRN 08/09/19 [History] Losartan [Cozaar] 12.5 mg PO DAILY 08/11/19 [History] Non-Formulary Medication [NF Drug] 2,000 mg PO DAILY 08/11/19 [History] Acetaminophen/oxyCODONE [Percocet 325-5 MG] 1 each PO DAILY PRN #3 tab 08/12/19 [Rx] Docusate Sodium/Sennosides [Senokot-S] 1 each PO ASDIRECTED #15 tablet 08/12/19 [Rx] Potassium Chloride 40 meq PO ONETIME #1 cup 08/12/19 [Rx] Oxygen Therapy Mode: Room Air Patient Handouts: Leukocytosis, High Triglycerides Eating Plan, Cholecystitis, [id number] Referrals: Andriy Barclay MD [Primary Care Provider] - 09/03/19 10:00 am Sol Willams MD [Physician] - 08/27/19 2:00 pm (come 15 minutes prior to the appointment to register bring photo ID and insurance cards with you ) - Discharge Summary/Plan Comment DC Time >30 min.: No Discharge Summary/Plan Comment: Discharge to Home - General Info Date of Service: 08/12/19 Admission Dx/Problem (Free Text: Admission Diagnosis/Problem Admission Diagnosis/Problem Cholecystitis Subjective Update: She states rested okay. Her pain is controlled. She has no new complaints. Functional Status: Reports: Pain Controlled, Tolerating Diet, Ambulating, Urinating - Review of Systems General: Denies: Fever, Weakness, Fatigue, Malaise, Chills HEENT: Reports: No Symptoms Pulmonary: Denies: Shortness of Breath, Pleuritic Chest Pain, Cough Cardiovascular: Denies: Chest Pain, Dyspnea on Exertion, Lightheadedness Gastrointestinal: Reports: Abdominal Pain, Other (passing gas). Denies: Nausea , Vomiting Genitourinary: Reports: No Symptoms Musculoskeletal: Reports: No Symptoms Skin: Reports: No Symptoms Neurological: Denies: Confusion, Numbness, Trouble Speaking, Difficulty Walking , Weakness, Gait Disturbance Psychiatric: Denies: Depression, Anxiety, Agitation, Hallucinations Systems Review Comment: No overnight or acute issues. She rested well and pain is controlled. She is using her IS as directed and moving around. - Patient Data Vitals - Most Recent: Last Vital Signs Temp 36.6 C 08/12/19 09:41 Pulse 87 08/12/19 09:41 Resp 16 08/12/19 09:41 BP 129/51 L 08/12/19 09:53 Pulse Ox 93 L 08/12/19 09:41 Weight - Most Recent: 89.675 kg I&O - Last 24 hours: Intake & Output 08/11/19 08/12/19 08/12/19 22:59 06:59 14:59 Intake Total 1288 400 Output Total 725 Balance 1288 -325 Lab Results - Last 24 hrs: Laboratory Results - last 24 hr 08/12/19 08/12/19 Range/Units 06:42 06:42 WBC 9.75 (3.98-10.04) K/mm3 RBC 3.32 L (3.98-5.22) M/mm3 Hgb 10.4 L (11.2-15.7) gm/dl Hct 32.6 L (34.1-44.9) % MCV 98.2 H (79.4-94.8) fl MCH 31.3 (25.6-32.2) pg MCHC 31.9 L (32.2-35.5) g/dl RDW Std Deviation 47.7 H (36.4-46.3) fL Plt Count 305 (182-369) K/mm3 MPV 10.3 (9.4-12.3) fl Neut % (Auto) 61.3 (34.0-71.1) % Lymph % (Auto) 26.9 (19.3-51.7) % [place] % (Auto) 8.3 (4.7-12.5) % Eos % (Auto) 2.9 (0.7-5.8) Baso % (Auto) 0.3 (0.1-1.2) % Neut # (Auto) 5.98 (1.56-6.13) K/mm3 Lymph # (Auto) 2.62 (1.18-3.74) K/mm3 [place] # (Auto) 0.81 H (0.24-0.36) K/mm3 Eos # (Auto) 0.28 (0.04-0.36) K/mm3 Baso # (Auto) 0.03 (0.01-0.08) K/mm3 Sodium 141 (136-145) mEq/L Potassium 3.0 L (3.5-5.1) mEq/L Chloride 104 (98-107) mEq/L Carbon Dioxide 28 (21-32) mEq/L Anion Gap 12.0 (5-15) BUN 11 (7-18) mg/dL Creatinine 0.6 (0.55-1.02) mg/dL Est Cr Clr Drug Dosing 80.72 mL/min Estimated GFR (MDRD) > 60 (>60) mL/min BUN/Creatinine Ratio 18.3 H (14-18) Glucose 91 (80-115) mg/dL Calcium 8.4 L (8.5-10.1) mg/dL Magnesium 1.8 (1.8-2.4) mg/dl Total Bilirubin 0.5 (0.2-1.0) mg/dL AST 80 H (15-37) U/L ALT 132 H (14-59) U/L Alkaline Phosphatase 157 H (46-116) U/L C-Reactive Protein 6.2 H* (<1.0) mg/dL Total Protein 5.8 L (6.4-8.2) g/dl Albumin 2.6 L (3.4-5.0) g/dl Globulin 3.2 gm/dL Albumin/Globulin Ratio 0.8 L (1-2) JAYDA Results - Last 24 hrs: Microbiology 08/09/19 17:00 Aerobic Blood Culture - Preliminary Blood - Venous - Lab Draw NO GROWTH AFTER 2 DAYS Anaerobic Blood Culture - Preliminary NO GROWTH AFTER 2 DAYS 08/09/19 17:25 Aerobic Blood Culture - Preliminary Blood - Venous NO GROWTH AFTER 2 DAYS Anaerobic Blood Culture - Preliminary NO GROWTH AFTER 2 DAYS Med Orders - Current: Current Medications Acetaminophen (Tylenol) 650 mg PO Q4H PRN PRN Reason: Pain (Mild 1-3)/fever Last Admin: 08/12/19 09:51 Dose: 650 mg Hydrocodone Bitart/Acetaminophen ([place] 325-5 Mg) 1 tab PO Q4H PRN PRN Reason: Pain Last Admin: 08/11/19 10:06 Dose: 1 tab Albuterol/Ipratropium (Duoneb 3.0-0.5 Mg/3 Ml) 3 ml NEB Q4H PRN PRN Reason: Shortness Of Breath/wheezing Brimonidine Tartrate ([place] 0.2% Ophth Soln) 0 ml EYERT BID [facility] Last Admin: 08/12/19 09:53 Dose: 1 drop Docusate Sodium (Colace) 100 mg PO BID [facility] Last Admin: 08/12/19 09:52 Dose: 100 mg Enoxaparin Sodium (Lovenox) 40 mg SUBCUT DAILY [facility] Last Admin: 08/12/19 09:47 Dose: 40 mg Estradiol (Estradiol) 1.5 mg PO DAILY [facility] Last Admin: 08/12/19 09:52 Dose: 1.5 mg Finasteride (Proscar) 1.25 mg PO DAILY [facility] Last Admin: 08/12/19 09:52 Dose: 1.25 mg Fluticasone Propionate (Flonase) 0 gm NASBOTH BID [facility] Last Admin: 08/12/19 09:54 Dose: 2 spray Hydromorphone HCl (Dilaudid) 0.5 mg IVPUSH Q2H PRN PRN Reason: Pain (severe 7-10) Last Admin: 08/11/19 08:44 Dose: 0.5 mg Promethazine HCl 6.25 mg/ (Sodium Chloride) 50.25 mls @ 100 mls/hr IV Q6H PRN PRN Reason: Nausea/Vomiting Ketorolac Tromethamine (Toradol) 30 mg IV Q6H PRN PRN Reason: Pain (moderate 4-6) Last Admin: 08/12/19 03:07 Dose: 30 mg Latanoprost (Xalatan 0.005% Ophth Soln) 0 ml EYERT BEDTIME [facility] Last Admin: 08/11/19 20:46 Dose: Not Given Levothyroxine Sodium (Levothyroxine) 150 mcg PO ACBREAKFAST [facility] Last Admin: 08/12/19 06:21 Dose: 150 mcg Losartan Potassium (Cozaar) 12.5 mg PO DAILY [facility] Last Admin: 08/12/19 09:53 Dose: 12.5 mg Miscellaneous Information (Remove Patch) 1 ea TRDERM ONETIME ONE Stop: 08/13/19 11:01 Last Admin: 08/11/19 08:30 Dose: 1 ea Ondansetron HCl (Zofran) 4 mg IV Q6H PRN PRN Reason: Nausea/Vomiting Last Admin: 08/10/19 09:43 Dose: 4 mg Orphenadrine Citrate (Norflex) 100 mg PO BID PRN PRN Reason: Pain Oxycodone/Acetaminophen (Percocet 325-5 Mg) 2 tab PO Q6H PRN PRN Reason: Pain Last Admin: 08/11/19 21:46 Dose: 2 tab Pantoprazole Sodium (Protonix) 40 mg PO DAILY@0700 [facility] Last Admin: 08/12/19 06:21 Dose: 40 mg Prednisolone Acetate (Pred [place] 1% Ophth Susp) 0 ml EYELF DAILY [facility] Last Admin: 08/12/19 09:53 Dose: 1 drop Sodium Chloride (Saline Flush) 10 ml FLUSH ASDIRECTED PRN PRN Reason: Keep Vein Open Last Admin: 08/09/19 12:40 Dose: 10 ml Spironolactone (Aldactone) 100 mg PO DAILY [facility] Last Admin: 08/12/19 09:52 Dose: 100 mg Spironolactone (Aldactone) 50 mg PO DAILY [facility] Last Admin: 08/12/19 09:51 Dose: 50 mg Temazepam (Restoril) 15 mg PO BEDTIME PRN PRN Reason: Sleep Last Admin: 08/11/19 21:46 Dose: 15 mg Timolol Maleate (Timoptic 0.5% Ophth Soln) 0 ml EYERT BID [facility] Last Admin: 08/12/19 09:53 Dose: 1 drop Valacyclovir HCl (Valtrex) 500 mg PO DAILY [facility] Last Admin: 08/12/19 09:52 Dose: 500 mg Discontinued Medications Bumetanide (Bumex) 1 mg IVPUSH ONETIME ONE Stop: 08/12/19 09:15 Last Admin: 08/12/19 10:25 Dose: Not Given Bumetanide (Bumex) 1 mg PO ONETIME ONE Stop: 08/12/19 10:26 Cefazolin Sodium (Ancef) Confirm Administered Dose 1 gm .ROUTE .STK-MED ONE Stop: 08/10/19 14:09 Cefazolin Sodium (Ancef) Confirm Administered Dose 1 gm .ROUTE .STK-MED ONE Stop: 08/10/19 14:09 Dexamethasone (Dexamethasone) Confirm Administered Dose 20 mg .ROUTE .STK-MED ONE Stop: 08/10/19 14:04 Diazepam (Valium) 5 mg IVPUSH ONETIME ONE Stop: 08/09/19 16:49 Last Admin: 08/09/19 16:55 Dose: 5 mg Fentanyl (Sublimaze) Confirm Administered Dose 250 mcg .ROUTE .STK-MED ONE Stop: 08/10/19 14:05 Fentanyl (Sublimaze) 50 mcg IVPUSH Q5M PRN PRN Reason: Pain Stop: 08/10/19 19:00 Last Admin: 08/10/19 18:19 Dose: 50 mcg Fentanyl (Sublimaze) 100 mcg .ROUTE .STK-MED ONE Stop: 08/10/19 16:54 Finasteride (Proscar) 1.25 mg PO DAILY [facility] Finasteride (Proscar) 1.25 mg PO ONETIME PRN PRN Reason: REVIEW ALERTS ON PYXIS Furosemide (Lasix) 20 mg IVPUSH NOW ONE Stop: 08/11/19 11:01 Last Admin: 08/11/19 11:25 Dose: 20 mg Glucagon (Glucagen) Confirm Administered Dose 1 mg .ROUTE .STK-MED ONE Stop: 08/10/19 16:29 Glycopyrrolate () Confirm Administered Dose 1 mg .ROUTE .STK-MED ONE Stop: 08/10/19 17:10 Hydromorphone HCl (Dilaudid) 1 mg IVPUSH ONETIME ONE Stop: 08/09/19 12:23 Last Admin: 08/09/19 12:37 Dose: 1 mg Hydromorphone HCl (Dilaudid) 0.5 mg IVPUSH ONETIME ONE Stop: 08/09/19 15:18 Last Admin: 08/09/19 15:29 Dose: 0.5 mg Hydromorphone HCl (Dilaudid) 0.5 mg IVPUSH Q10M PRN PRN Reason: Pain (severe 7-10) Stop: 08/10/19 19:00 Last Admin: 08/10/19 18:48 Dose: 0.5 mg Sodium Chloride (Normal Saline) 1,000 mls @ 125 mls/hr IV ASDIRECTED MOHINDER Last Admin: 08/09/19 12:40 Dose: 125 mls/hr Sodium Chloride (Normal Saline) 100 mls @ 4 mls/sec IV ONETIME ONE Stop: 08/09/19 12:58 Last Admin: 08/09/19 13:21 Dose: 4 mls/sec Levofloxacin/Dextrose 750 mg/ (Premix) 150 mls @ 100 mls/hr IV ONETIME ONE Stop: 08/09/19 17:47 Last Admin: 08/09/19 16:45 Dose: Not Given Metronidazole 500 mg/ Premix 100 mls @ 100 mls/hr IV ONETIME ONE Stop: 08/09/19 17:31 Last Admin: 08/09/19 17:43 Dose: 100 mls/hr Meropenem 1 gm/ Sodium (Chloride) 100 mls @ 200 mls/hr IV ONETIME ONE Stop: 08/09/19 17:13 Last Admin: 08/09/19 18:46 Dose: Not Given Meropenem 1 gm/ Sodium (Chloride) 100 mls @ 200 mls/hr IV Q8H [facility] Metronidazole 500 mg/ Premix 100 mls @ 100 mls/hr IV Q8H [facility] Last Admin: 08/11/19 09:08 Dose: 100 mls/hr Lactated Ringer's (Ringers, Lactated) 1,000 mls @ 50 mls/hr IV ASDIRECTED [facility] Last Admin: 08/09/19 18:51 Dose: 50 mls/hr Meropenem/Sodium Chloride 500 (mg/ Premix) 50 mls @ 100 mls/hr IV Q6H [facility] Last Admin: 08/11/19 08:29 Dose: 100 mls/hr Lactated Ringer's (Ringers, Lactated) 1,000 mls @ 75 mls/hr IV ASDIRECTED [facility] Last Admin: 08/10/19 21:44 Dose: 75 mls/hr Lidocaine HCl (Xylocaine-Mpf 1%) Confirm Administered Dose 4 mls @ as directed .ROUTE .ST-MED ONE Stop: 08/10/19 14:08 Lactated Ringer's (Ringers, Lactated) Confirm Administered Dose 1,000 mls @ as directed .ROUTE .ST-MED ONE Stop: 08/10/19 15:04 Lactated Ringer's (Ringers, Lactated) Confirm Administered Dose 1,000 mls @ as directed .ROUTE .STK-MED ONE Stop: 08/10/19 15:04 Sodium Chloride (Normal Saline) Confirm Administered Dose 20 mls @ as directed .ROUTE .ST-MED ONE Stop: 08/10/19 15:17 Sodium Chloride (Normal Saline) Confirm Administered Dose 10 mls @ as directed .ROUTE .ST-MED ONE Stop: 08/10/19 15:23 Iopamidol (Isovue-370 (76%)) 100 ml IVPUSH ONETIME ONE Stop: 08/09/19 12:58 Last Admin: 08/09/19 13:21 Dose: 100 ml Iopamidol (Isovue-300 (61%)) Confirm Administered Dose 50 ml .ROUTE .ST-MED ONE Stop: 08/10/19 15:15 Last Admin: 08/10/19 16:33 Dose: 96 ml Iopamidol (Isovue-300 (61%)) Confirm Administered Dose 50 ml .ROUTE .ST-MED ONE Stop: 08/10/19 16:33 Iopamidol (Isovue-300 (61%)) Confirm Administered Dose 50 ml .ROUTE .[facility]-MED ONE Stop: 08/10/19 16:39 Ketamine HCl (Ketalar) Confirm Administered Dose 500 mg .ROUTE .ST-MED ONE Stop: 08/10/19 15:27 Ketorolac Tromethamine (Toradol) Confirm Administered Dose 30 mg .ROUTE .ST- MED ONE Stop: 08/10/19 14:08 Lidocaine HCl (Xylocaine-Mpf 1%) Confirm Administered Dose 30 ml .ROUTE .ST- MED ONE Stop: 08/10/19 13:39 Last Admin: 08/10/19 15:43 Dose: 30 ml Lorazepam (Ativan) 0.5 mg IVPUSH ONETIME ONE Stop: 08/09/19 14:11 Last Admin: 08/09/19 14:20 Dose: 0.5 mg Lorazepam (Ativan) 2 mg IVPUSH ONETIME ONE Stop: 08/11/19 07:01 Last Admin: 08/11/19 12:45 Dose: Not Given Midazolam HCl (Versed 1 Mg/Ml) Confirm Administered Dose 2 mg .ROUTE .ST-MED ONE Stop: 08/10/19 14:05 Neostigmine Methylsulfate (Neostigmine) Confirm Administered Dose 5 mg .ROUTE .ST-MED ONE Stop: 08/10/19 17:10 Non-Formulary Medication (Betamethasone/Propylene Glyc [Betamethasone Dp Aug 0.05% Oin]) 1 applic TOP BID PRN PRN Reason: Bee/Wasp sting Ondansetron HCl (Zofran) 4 mg IVPUSH ONETIME ONE Stop: 08/09/19 12:22 Last Admin: 08/09/19 12:35 Dose: 4 mg Ondansetron HCl (Zofran) Confirm Administered Dose 4 mg .ROUTE .STK-MED ONE Stop: 08/10/19 14:04 Ondansetron HCl (Zofran) 4 mg IVPUSH ONETIME PRN PRN Reason: Nausea/Vomiting Stop: 08/10/19 19:00 Last Admin: 08/10/19 18:24 Dose: 4 mg Phenylephrine HCl (Phenylephrine In Ns 100 Mcg/Ml) Confirm Administered Dose 1 mg .ROUTE .STK-MED ONE Stop: 08/10/19 15:37 Potassium Chloride (Klor-Con M20) 60 meq PO ONETIME ONE Stop: 08/12/19 09:15 Last Admin: 08/12/19 09:51 Dose: 60 meq Propofol (Diprivan 20 Ml) Confirm Administered Dose 200 mg .ROUTE .STK-MED ONE Stop: 08/10/19 14:04 Propofol (Diprivan 20 Ml) Confirm Administered Dose 200 mg .ROUTE .STK-MED ONE Stop: 08/10/19 14:57 Rocuronium [place] (Zemuron) Confirm Administered Dose 100 mg .ROUTE .STK-MED ONE Stop: 08/10/19 14:04 Scopolamine (Transderm-Scop) 1.5 mg TOP ONETIME ONE Stop: 08/10/19 11:01 Last Admin: 08/10/19 11:21 Dose: 1.5 mg Sodium Chloride (Normal Saline) Confirm Administered Dose 50 ml .ROUTE .STK-MED ONE Stop: 08/10/19 15:26 Last Admin: 08/10/19 16:33 Dose: 130 ml Sodium Chloride (Normal Saline) Confirm Administered Dose 50 ml .ROUTE .STK-MED ONE Stop: 08/10/19 16:31 Sodium Chloride (Normal Saline) Confirm Administered Dose 50 ml .ROUTE .STK-MED ONE Stop: 08/10/19 16:33 Sodium Chloride (Normal Saline) Confirm Administered Dose 50 ml .ROUTE .[employer]hip It Bag Check-MED ONE Stop: 08/10/19 16:39 Temazepam (Restoril) 7.5 mg PO BEDTIME PRN PRN Reason: Sleep - Exam General: Reports: Alert, Oriented, Cooperative, No Acute Distress HEENT: Reports: Pupils Equal, Pupils Reactive, EOMI, Mucous Membr. Moist/[place] Neck: Reports: Supple Lungs: Reports: Clear to Auscultation, Normal Respiratory Effort Cardiovascular: Reports: Regular Rate, Regular Rhythm GI/Abdominal Exam: Normal Bowel Sounds, Soft, Non-Tender, No Organomegaly, No Distention, No Abnormal Bruit (Female) Exam: Deferred Rectal (Female) Exam: Deferred Back Exam: Reports: Normal Inspection, Decreased Range of Motion Extremities: Normal Inspection, Normal Range of Motion, Non-Tender, No Pedal Edema, Normal Capillary Refill Skin: Reports: Warm, Dry, Intact Neurological: Reports: No New Focal Deficit Psy/Mental Status: Reports: Alert, Normal Affect, Normal Mood
== END 2019-08-12 14:05 | disposition home or self-care (01) | DRG 419 ==
LOC: JD.ED 11:54 → JD.MS 17:08
PROVIDERS: ADMIT Internal Medicine; ATTEND Internal Medicine
PROC: 0FT44ZZ Resection of Gallbladder, Percutaneous Endoscopic Approach (ICD-10-PCS; principal; 2019-08-10)
PROC: BF10YZZ Fluoroscopy of Bile Ducts using Other Contrast (ICD-10-PCS; 2019-08-10)
DX: K81.9 Cholecystitis, unspecified (principal); I10 Essential (primary) hypertension; J30.9 Allergic rhinitis, unspecified; K21.9 Gastro-esophageal reflux disease without esophagitis; M19.90 Unspecified osteoarthritis, unspecified site; K58.9 Irritable bowel syndrome, unspecified; R32 Unspecified urinary incontinence; G43.909 Migraine, unspecified, not intractable, without status migrainosus; E03.9 Hypothyroidism, unspecified; E80.6 Other disorders of bilirubin metabolism; R74.0 Nonspecific elevation of levels of transaminase and lactic acid dehydrogenase [LDH]; E88.09 Other disorders of plasma-protein metabolism, not elsewhere classified; F32.9 Major depressive disorder, single episode, unspecified; E66.9 Obesity, unspecified; H40.9 Unspecified glaucoma; Z79.899 Other long term (current) drug therapy; Z88.0 Allergy status to penicillin; Z88.1 Allergy status to other antibiotic agents; Z88.5 Allergy status to narcotic agent; Z91.038 Other insect allergy status; Z79.890 Hormone replacement therapy; Z91.030 Bee allergy status; Z88.7 Allergy status to serum and vaccine; Z88.2 Allergy status to sulfonamides; Z88.8 Allergy status to other drugs, medicaments and biological substances; Z79.2 Long term (current) use of antibiotics; Z90.49 Acquired absence of other specified parts of digestive tract; Z90.710 Acquired absence of both cervix and uterus; Z98.890 Other specified postprocedural states; Z98.49 Cataract extraction status, unspecified eye; Z68.32 Body mass index [BMI] 32.0-32.9, adult; Z99.81 Dependence on supplemental oxygen
CPT/HCPCS: 36415; 71275; 76705; 80053; 81001; 84145; 84484; 85025; 86140; 87040; 93005; 96374; 96375; 96376; 99285; J1170 ×2; J2060; J2405; J3360; J7030; J7050; Q9967; 00790; 74300; 74300-26; 80061; 82553; 83605; 83735; 88304; 94761; 97116-GP; 97162-GP; 97165-GO; 99222; 99232; 99238; A9270-GY; J0690; J1100; J1610; J1650; J1885; J2001; J2185; J2250; J2370; J2704; J2710; J3010; J3490; J7120

== ENCOUNTER 2019-09-30 17:02 | Emergency (ER) | payer MEDICARE, BC ==
--- NOTE | 2019-09-30 18:00 | EDM.PDOC ---
ED HPI GENERAL MEDICAL PROBLEM - General Chief Complaint: Gastrointestinal Problem Stated Complaint: CONSTIPATION Time Seen by Provider: 09/30/19 17:23 Source of Information: Reports: Patient, RN Notes Reviewed History Limitations: Reports: No Limitations - History of Present Illness INITIAL COMMENTS - FREE TEXT/NARRATIVE: Patient is a 64-year-old female who presents to the ED for the evaluation of her constipation. Patient notes that she has a history of IBS, so she is not very regular on a daily basis. But she notes that she has not had a good bowel movement in about 10 days now. Patient states that she can feel the stool at the opening of her rectum, but just cannot get this out. She has been taking some Metamucil, and Colace for this, but has not tried any sort of laxatives or suppositories. Patient states that she had a recent cystocele and rectocele repair done by Dr. Barclay on August 07, 2019, with also a placement of a bladder sling. She states that she is having some issues urinating as well, where she thinks that she is not able to void due to the stool that is blocking things. She is not having any abdomen pain, she is not having any nausea or vomiting or diarrhea. No chest pain no shortness of breath, no dysuria, urinary frequency urgency. Primary care provider is Lee Ann Abarca. - Related Data Allergies Allergy/AdvReac Type Severity Reaction Status Date / Time brimonidine [From Simbrinza] Allergy Burning Verified 08/09/19 18:46 brinzolamide [From Simbrinza] Allergy Burning Verified 08/09/19 18:46 cephalexin Allergy Rash Verified 08/09/19 18:46 doxycycline Allergy Rash Verified 08/09/19 18:46 levothyroxine sodium Allergy Rash Verified 08/09/19 18:46 paroxetine [Paroxetine] Allergy Rash Verified 08/09/19 18:46 red dye Allergy Cannot Verified 08/09/19 18:46 Remember sulfamethoxazole Allergy Rash Verified 08/09/19 18:46 [From Bactrim] Tetanus Vaccines and Toxoid Allergy Hives Verified 08/09/19 18:46 [Tetanus Vaccines & Toxoid] trimethoprim [From Bactrim] Allergy Rash Verified 08/09/19 18:46 venom-honey bee Allergy Itching Verified 08/09/19 18:46 [bee venom (honey bee)] clarithromycin AdvReac metallic Verified 08/09/19 18:46 taste codeine AdvReac Headache Verified 08/09/19 18:46 fenofibrate AdvReac Muscle Verified 08/09/19 18:46 Weakness fluoxetine AdvReac Diarrhea Verified 08/09/19 18:46 levofloxacin AdvReac irregular Verified 08/09/19 18:46 heart beat oseltamivir [From Tamiflu] AdvReac Nausea Verified 08/09/19 18:46 venlafaxine AdvReac Vomiting Verified 08/09/19 18:46 wasps Allergy Anaphylactic Uncoded 08/09/19 18:46 Shock Home Meds: Home Meds Brimonidine Tartrate/Timolol [Combigan 0.2%-0.5% Eye Drops] 1 drop EYERT BID [History] Finasteride 1.25 mg PO DAILY 08/03/18 [History] Flunisolide [Nasalide Nasal [place]] 2 spray NASBOTH BID 08/03/18 [History] Levothyroxine 150 mcg PO ACBREAKFAST 08/03/18 [History] Omeprazole 40 mg PO DAILY 08/03/18 [History] Orphenadrine [Norflex] 100 mg PO BID PRN 08/03/18 [History] Spironolactone 150 mg PO DAILY 08/03/18 [History] Travoprost [Travatan Z] 1 drop EYERT BEDTIME 08/03/18 [History] estradioL [Estradiol] 1.5 mg PO DAILY 08/03/18 [History] valACYclovir HCl [Valtrex] 500 mg PO DAILY 08/03/18 [History] Cyanocobalamin (Vitamin B-12) [Vitamin B-12] 5,000 mcg PO DAILY 03/11/19 [ History] EPINEPHrine [Epipen] 0.3 mg IM ONETIME PRN 03/11/19 [History] Prednisolone Acetate/Pf [Prednisolone Acet 1% Eye Drop] 1 drop EYELF DAILY 08/07 [History] Betamethasone/Propylene Glyc [Betamethasone Dp Aug 0.05% Oin] 1 applic TOP BID PRN 08/09/19 [History] Biotin 10,000 mcg PO DAILY 08/09/19 [History] Calcium Citrate/Vitamin D3 [Calcium Citrate-Vit D3 Caplet] 1 tab PO DAILY [History] Cholecalciferol (Vitamin D3) [Vitamin D3] 1,000 unit PO DAILY 08/09/19 [History] Ferrous Sulfate 325 mg PO WEEKLY 08/09/19 [History] Ibuprofen 600 mg PO Q4H PRN 08/09/19 [History] Loratadine [Claritin] 10 mg PO DAILY PRN 08/09/19 [History] Multivit-Min/Iron/Folic/Lutein [Centrum Silver Women Tablet] 1 tab PO DAILY 12/22 [History] Vitamin B6-pyridOXINE [Vitamin B6] 200 mg PO DAILY 08/09/19 [History] predniSONE [Prednisone] 20 - 40 mg PO ASDIRECTED PRN 08/09/19 [History] Losartan [Cozaar] 12.5 mg PO DAILY 08/11/19 [History] Non-Formulary Medication [NF Drug] 2,000 mg PO DAILY 08/11/19 [History] Docusate Sodium/Sennosides [Senokot-S] 1 each PO ASDIRECTED #15 tablet 08/12/19 [Rx] Past Medical History HEENT History: Reports: Allergic Rhinitis, Glaucoma Other HEENT History: corneal ulcer to left eye Cardiovascular History: Reports: Hypertension Respiratory History: Reports: Bronchitis, Recurrent, Pneumonia, Recurrent Other Respiratory History: cough, lower respiratory infection Gastrointestinal History: Reports: GERD, Irritable Bowel Syndrome, Other (See Below) Other Gastrointestinal History: stomach malrotation Genitourinary History: Reports: Urinary Incontinence 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 (See Below) Other MILL OPERATOR History: breast pain Musculoskeletal History: Reports: Osteoarthritis Other Musculoskeletal History: generalized weakness Neurological History: Reports: Migraines Psychiatric History: Reports: Depression, Other (See Below) Endocrine/Metabolic History: Reports: Hypothyroidism, Obesity/BMI 30+ Other Endocrine/Metabolic History: enlarged thyroid, thyroid nodule Hematologic History: Reports: Anemia Dermatologic History: Reports: Eczema Other Dermatologic History: hair loss, actinic keratosis, facial flushing, seborrheic keratosis - Past Surgical History HEENT Surgical History: Reports: Cataract Surgery, Eye Surgery, Naso-Sinus Surgery, Oral Surgery Cardiovascular Surgical History: Reports: Aneurysm GI Surgical History: Reports: Appendectomy, Colonoscopy Female Surgical History: Reports: Hysterectomy Other Female Surgeries/Procedures: lumpectomy; fibrocystic breast, cystocele , rectocele, bladder sling Musculoskeletal Surgical History: Reports: Carpal Tunnel, Other (See Below) Other Musculoskeletal Surgeries/Procedures:: foot surgery Oncologic Surgical History: Reports: Biopsy of Breast Social & Family History - Family History Family Medical History: Noncontributory - Tobacco Use Smoking Status *Q: Never Smoker - Caffeine Use Caffeine Use: Reports: Coffee, Tea - Recreational Drug Use Recreational Drug Use: No - Living Situation & Occupation Living situation: Reports: , with Spouse Occupation: Retired ED ROS GENERAL - Review of Systems Review Of Systems: See Below Constitutional: Denies: Fever, Chills Respiratory: Denies: Shortness of Breath Cardiovascular: Denies: Chest Pain GI/Abdominal: Reports: Constipation. Denies: Abdominal Pain, Diarrhea, Nausea, Vomiting : Denies: Discharge, Dysuria, Frequency, Urgency Musculoskeletal: Denies: Back Pain ED EXAM, GI/ABD - Physical Exam Exam: See Below Exam Limited By: No Limitations General Appearance: Alert, WD/WN, No Apparent Distress Eyes: Bilateral: Normal Appearance Ears: Normal External Exam Nose: Normal Inspection Throat/Mouth: Normal Inspection, Normal Lips, Normal Teeth, Normal Gums, Normal Oropharynx, Normal Voice, No Airway Compromise Head: Atraumatic, Normocephalic Neck: Normal Inspection Respiratory/Chest: No Respiratory Distress, Lungs Clear, Normal Breath Sounds, No Accessory Muscle Use, Chest Non-Tender Cardiovascular: Normal Peripheral Pulses, Regular Rate, Rhythm, No Murmur GI/Abdominal Exam: Normal Bowel Sounds, Soft, Non-Tender, No Distention, No Mass Extremities: Normal Inspection, Normal Capillary Refill Neurological: Alert, Oriented, Normal Cognition, No Motor/Sensory Deficits Psychiatric: Normal Affect, Normal Mood Skin Exam: Warm, Dry, Intact, Normal Color, No Rash Course - Vital Signs Last Recorded V/S: Last Vital Signs Temp 97.3 F 09/30/19 17:23 Pulse 106 H 09/30/19 17:23 Resp 16 09/30/19 17:23 BP 171/93 H 09/30/19 17:23 Pulse Ox 99 09/30/19 17:23 - Orders/Labs/Meds Orders: Active Orders 24 hr Category Date Time Status Bladder Scan [RC] ASDIRECTED Care 09/30/19 17:53 Ordered Enema [RC] ASDIRECTED Care 09/30/19 17:52 Ordered Meds: Medications Discontinued Medications Generic Name Dose Route Start Last Admin Trade Name Sadia PRN Reason Stop Dose Admin Bisacodyl 10 mg 09/30/19 20:27 09/30/19 20:38 Dulcolax RECTAL 09/30/19 20:28 10 mg ONETIME ONE Administration Lidocaine HCl 10 ml 09/30/19 18:47 09/30/19 18:53 Xylocaine 2% Jelly MUCMEM 09/30/19 18:48 10 ml ONETIME ONE Administration Lorazepam 1 mg 09/30/19 18:48 09/30/19 18:53 Ativan IM 09/30/19 18:49 1 mg ONETIME ONE Administration Magnesium Citrate 296 ml 09/30/19 20:21 09/30/19 20:38 Citrate Of Magnesia PO 09/30/19 20:22 296 ml ONETIME ONE Administration - Re-Assessments/Exams Free Text/Narrative Re-Assessment/Exam: 09/30/19 17:59 Patient presents to the ED for evaluation of her constipation. I did get a flat and upright abdomen x-rays to make sure the gas stool patterns are normal, I did also order an enema to be given, along with a bladder scan to see if the patient is retaining urine. 09/30/19 18:29 Patient abdomen x-ray demonstrates increased stool throughout the colon, but no air-fluid levels or be suggestive of any sort of obstruction or other emergent consideration. Nursing is still trying to perform enema at this time. Will reassess patient's urinary status after the enema has been given time to work, to see if this does not help relieve some of her bowel issues. 09/30/19 20:49 Patient did not tolerate enema very well, so we tried Dulcolax suppository and this did help provide results. Patient is also able to pee at this time. Will discharge home with general recommendations and have her take the mag citrate at home for further bowel evacuation. Departure - Departure Time of Disposition: 20:49 Disposition: Home, Self-Care 01 Condition: Fair Clinical Impression: Constipation Qualifiers: Constipation type: other constipation type Qualified Code(s): K59.09 - Other constipation - Discharge Information *PRESCRIPTION DRUG MONITORING PROGRAM REVIEWED*: No *COPY OF PRESCRIPTION DRUG MONITORING REPORT IN PATIENT KYMBERLY: No Instructions: Constipation, Adult, [id number], Probiotics Referrals: Lee Ann Abarca PA-C [Primary Care Provider] - Forms: ED Department Discharge Additional Instructions: You were evaluated in the ER today for your constipation. You were given an enema, suppository, and magnesium citrate for your constipation. The suppository did seem to help evacuate your bowels as you were able to have a bowel movement in the ER, this did provide you some relief of your symptoms. Recommend you go home and take the rest of the magnesium citrate as directed, one half bottle at a time, if you are not having a lot of good results in about 4 hours, please repeat with the last half. Recommend that for future bowel health, that you take a stool softener on a regular basis, and also start taking probiotics in your diet as this will also help regulate good gut health. As always, try to increase your oral fluid intake as much as possible to promote good hydration. Please return to the ER at any time if your symptoms change or worsen. Sepsis Event Note - Evaluation Sepsis Screening Result: No Definite Risk - Focused Exam Vital Signs: Vital Signs Temp Pulse Resp BP Pulse Ox 09/30/19 17:23 97.3 F 106 H 16 171/93 H 99 Date Exam was Performed: 09/30/19 Time Exam was Performed: 20:49 - My Orders Last 24 Hours: My Active Orders 09/30/19 17:52 Enema [RC] ASDIRECTED 09/30/19 17:53 Bladder Scan [RC] ASDIRECTED - Assessment/Plan Last 24 Hours: My Active Orders 09/30/19 17:52 Enema [RC] ASDIRECTED 09/30/19 17:53 Bladder Scan [RC] ASDIRECTED
--- NOTE | 2019-09-30 18:16 | CR ---
Abdomen: Supine and upright views of the abdomen were obtained. Comparison: No previous study. Slight increased stool is seen within portions of the colon. Air-fluid level noted within 1 distal small bowel loop believed to be incidental. Calcifications are seen within the pelvis likely representing phleboliths. Surgical clips are seen from prior cholecystectomy. No free air is seen. Impression: 1. Slight increased within the colon. 2. Other findings which are believed to be incidental as noted above. Diagnostic code #2 This report was dictated in [place] Standard Time
[2019-09-30] MEDS ORDERED: Lidocaine 2% Jelly 10 ML Urojet MUCMEM ONE (18:47)
[2019-09-30] MEDS ORDERED: LORazepam 2 MG/ML SDV IM ONE (18:48)
[2019-09-30] MEDS ORDERED: Bisacodyl 10 MG Supp RECTAL ONE (20:27)
[2019-09-30] MEDS: Magnesium Citrate Solution 296 ML Bottle PO ONE ×2 (20:38→22:32)
== END 2019-09-30 21:22 | disposition home or self-care (01) ==
LOC: JD.ED 17:02
DX: K59.09 Other constipation (principal); E03.9 Hypothyroidism, unspecified; E66.9 Obesity, unspecified; K21.9 Gastro-esophageal reflux disease without esophagitis; Z79.899 Other long term (current) drug therapy; Z88.5 Allergy status to narcotic agent; Z88.7 Allergy status to serum and vaccine; Z88.8 Allergy status to other drugs, medicaments and biological substances; Z88.1 Allergy status to other antibiotic agents; Z88.2 Allergy status to sulfonamides
CPT/HCPCS: 74019; 96372; 99283; A9270; J2060

== ENCOUNTER 2020-04-18 06:37 | Day surgery (SDC) | payer MEDICARE, BC ==
[2020-04-18] MEDS ORDERED: Morphine 8 MG, EPINEPHrine 0.3 MG, Cefuroxime 750 MG, Ketorolac 30 MG, Sodium Chloride ... PRN ×5 (06:44)
[2020-04-18] MEDS ORDERED: Morphine 2 MG/ML SYRINGE IVPUSH PRN (06:46)
[2020-04-18] MEDS ORDERED: Naloxone 0.4 MG/ML SDV IVPUSH PRN (06:46)
[2020-04-18] MEDS ORDERED: Bisacodyl 5 MG Tab PO PRN (06:46)
[2020-04-18] MEDS ORDERED: Magnesium Hydroxide 400 MG/5 ML Susp 30 ML Cup PO PRN (06:46)
[2020-04-18] MEDS ORDERED: Acetaminophen 325 MG Tab PO SCH (07:03)
[2020-04-18] MEDS ORDERED: Pregabalin 25 MG Cap PO SCH (07:04)
[2020-04-18] MEDS ORDERED: oxyCODONE ER 10 MG TAB.ER PO SCH (07:04)
[2020-04-18] MEDS ORDERED: Ropivacaine 0.5% 5 MG/ML 30 ML SDV ONE (07:05)
[2020-04-18] MEDS ORDERED: EPINEPHrine 1 MG/ML SDV ONE (07:05)
[2020-04-18] MEDS ORDERED: Morphine PF 10 MG/10 ML SDV ONE (07:28)
[2020-04-18] MEDS ORDERED: fentaNYL 100 MCG/2 ML SDV ONE ×2 (07:28→09:44)
[2020-04-18] MEDS ORDERED: Propofol 200 MG/20 ML SDV ONE ×3 (07:28→10:20)
[2020-04-18] MEDS ORDERED: Scopolamine 1.5 MG Transdermal Patch TOP SCH (07:30)
[2020-04-18] MEDS ORDERED: Iodine/Sodium Iodide 2% Tincture 30 ML Bottle ONE (07:34)
[2020-04-18] MEDS ORDERED: Triamcinolone Acetonide 40 MG/ML 1 ML SDV ONE (07:34)
[2020-04-18] MEDS ORDERED: Vancomycin 1 GM SDV ONE (07:34)
[2020-04-18] MEDS ORDERED: ceFAZolin 1 GM Vial ONE ×2 (07:34→07:57)
[2020-04-18] MEDS ORDERED: Ondansetron 4 MG/2 ML SDV IVPUSH ONE (07:52)
[2020-04-18] MEDS ORDERED: Lidocaine 1%/Sod Bicarbonate in NS 8.4% 1 ML Syringe IDERM PRN (07:52)
[2020-04-18] MEDS ORDERED: Sodium Chloride 0.9% 10 ML Syringe FLUSH PRN (07:52)
[2020-04-18] MEDS ORDERED: Famotidine 20 MG/2 ML SDV IVPUSH ONE (07:52)
[2020-04-18] MEDS ORDERED: Ondansetron 4 MG/2 ML SDV ONE (07:57)
[2020-04-18] MEDS ORDERED: Midazolam 1 MG/ML 2 ML SDV ONE ×2 (07:57→09:46)
[2020-04-18] MEDS ORDERED: Lactated Ringers 1,000 ML IV SCH (08:00)
--- NOTE | 2020-04-18 08:17 | PCM.PREANE ---
Preanesthetic Assessment - Procedure Proposed Procedure: Left Total Knee Arthroplasty - Anesthesia/Transfusion/Family Hx Anesthesia History: Prior Anesthesia Without Reaction Family History of Anesthesia Reaction: No Transfusion History: No Prior Transfusion(s) Intubation History: Unknown - Review of Systems General: No Symptoms Pulmonary: No Symptoms Cardiovascular: No Symptoms Gastrointestinal: No Symptoms Neurological: Other (patient gets motion sickness very easily) Other: Reports: None - Physical Assessment NPO Status Date: 04/17/20 NPO Status Time: 21:30 Vital Signs: Last Vital Signs Temp 36.1 C 04/18/20 07:29 Pulse 88 04/18/20 07:29 Resp 16 04/18/20 07:29 BP 172/77 H 04/18/20 07:29 Pulse Ox 98 04/18/20 07:29 Height: 5 ft 4 in Weight: 86.3 kg ASA Class: 2 Mental Status: Alert & Oriented x3 Airway Class: Mallampati = 3 Dentition: Reports: Normal Dentition ROM/Head Extension: Full Lungs: Clear to Auscultation, Normal Respiratory Effort Cardiovascular: Regular Rate, Regular Rhythm - Lab Values: Laboratory Last Values SARS-CoV-2 (PCR) Not detected (NOT DETECT) 04/14/20 10:00 MRSA (PCR) Negative 04/05/20 13:56 - Allergies Allergies/Adverse Reactions: Allergies Allergy/AdvReac Type Severity Reaction Status Date / Time brimonidine [From Simbrinza] Allergy Burning Verified 04/18/20 07:12 brinzolamide [From Simbrinza] Allergy Burning Verified 04/18/20 07:12 cephalexin Allergy Rash Verified 04/18/20 07:12 doxycycline Allergy Rash Verified 04/18/20 07:12 levothyroxine sodium Allergy Rash Verified 04/18/20 07:12 paroxetine [Paroxetine] Allergy Rash Verified 04/18/20 07:12 red dye Allergy Cannot Verified 04/18/20 07:12 Remember sulfamethoxazole Allergy Rash Verified 04/18/20 07:12 [From Bactrim] Tetanus Vaccines and Toxoid Allergy Hives Verified 04/18/20 07:12 [Tetanus Vaccines & Toxoid] trimethoprim [From Bactrim] Allergy Rash Verified 04/18/20 07:12 venom-honey bee Allergy Itching Verified 04/18/20 07:12 [bee venom (honey bee)] clarithromycin AdvReac metallic Verified 04/18/20 07:12 taste codeine AdvReac Headache Verified 04/18/20 07:12 fenofibrate AdvReac Muscle Verified 04/18/20 07:12 Weakness fluoxetine AdvReac Diarrhea Verified 04/18/20 07:12 levofloxacin AdvReac irregular Verified 04/18/20 07:12 heart beat oseltamivir [From Tamiflu] AdvReac Nausea Verified 04/18/20 07:12 venlafaxine AdvReac Vomiting Verified 04/18/20 07:12 wasps Allergy Anaphylactic Uncoded 04/18/20 07:12 Shock - Anesthesia Plan Free Text/Narrative:: Spinal/MAC with preoperative anxiolytic with versed, Pepcid, scopolamine patch, and Zofran Pre-Op Medication Ordered: Antacids - Acknowledgements Anesthesia Type Planned: Spinal, MAC Pt an Appropriate Candidate for the Planned Anesthesia: Yes Alternatives and Risks of Anesthesia Discussed w Pt/Guardian: Yes Pt/Guardian Understands and Agrees with Anesthesia Plan: Yes PreAnesthesia Questionnaire HEENT History: Reports: Allergic Rhinitis, Glaucoma, Impaired Vision Other HEENT History: corneal ulcer to left eye Cardiovascular History: Reports: Hypertension Other Cardiovascular History: abnormal EKG, chest tightness Respiratory History: Reports: Bronchitis, Recurrent, Pneumonia, Recurrent Other Respiratory History: cough, lower respiratory infection Gastrointestinal History: Reports: GERD, Irritable Bowel Syndrome, Other (See Below) Other Gastrointestinal History: stomach malrotation Genitourinary History: Reports: Urinary Incontinence Other Genitourinary History: stress urinary incontinence, leakage, cystocele and rectocele repair 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 (See Below) Other OB/BYN History: breast pain, menopausal hot flashes Musculoskeletal History: Reports: Arthritis, Fibromyalgia, Osteoarthritis Other Musculoskeletal History: generalized weakness, joint swelling Neurological History: Reports: Migraines Psychiatric History: Reports: Depression, Other (See Below) Endocrine/Metabolic History: Reports: Hypothyroidism, Obesity/BMI 30+ Other Endocrine/Metabolic History: enlarged thyroid, thyroid nodule Hematologic History: Reports: Anemia Immunologic History: Reports: None Oncologic (Cancer) History: Reports: None Dermatologic History: Reports: Eczema Other Dermatologic History: hair loss, actinic keratosis, facial flushing, seborrheic keratosis - Infectious Disease History Infectious Disease History: Reports: None - Past Surgical History Head Surgeries/Procedures: Reports: None HEENT Surgical History: Reports: Cataract Surgery, Eye Surgery, Naso-Sinus Surgery, Oral Surgery Other HEENT Surgeries/Procedures: bilateral cataract surgery; bilateral trabeculectomy surgery Cardiovascular Surgical History: Reports: Aneurysm Respiratory Surgical History: Reports: None GI Surgical History: Reports: Appendectomy, Cholecystectomy, Colonoscopy Female Surgical History: Reports: Hysterectomy Other Female Surgeries/Procedures: lumpectomy; fibrocystic breast, cystocele, rectocele, bladder sling Endocrine Surgical History: Reports: None Neurological Surgical History: Reports: None Musculoskeletal Surgical History: Reports: Carpal Tunnel, Other (See Below) Other Musculoskeletal Surgeries/Procedures:: foot surgery Oncologic Surgical History: Reports: Biopsy of Breast Dermatological Surgical History: Reports: Other (See Below) - SUBSTANCE USE Smoking Status *Q: Never Smoker Recreational Drug Use History: No - HOME MEDS Home Medications: Home Meds Brimonidine Tartrate/Timolol [Combigan 0.2%-0.5% Eye Drops] 1 drop EYERT BID 08/03/18 [History] Finasteride 1.25 mg PO DAILY 08/03/18 [History] Flunisolide [Nasalide Nasal [place]] 2 spray NASBOTH BID 08/03/18 [History] Levothyroxine 150 mcg PO ACBREAKFAST 08/03/18 [History] Omeprazole 40 mg PO DAILY 08/03/18 [History] Spironolactone 150 mg PO DAILY 08/03/18 [History] Travoprost [Travatan Z] 1 drop EYERT BEDTIME 08/03/18 [History] estradioL [Estradiol] 1.5 mg PO DAILY 08/03/18 [History] valACYclovir HCl [Valtrex] 500 mg PO DAILY 08/03/18 [History] EPINEPHrine [Epipen] 0.3 mg IM ONETIME PRN 03/11/19 [History] Prednisolone Acetate/Pf [Prednisolone Acet 1% Eye Drop] 1 drop EYELF DAILY 08/07/19 [History] Betamethasone/Propylene Glyc [Betamethasone Dp Aug 0.05% Oin] 1 applic TOP BID PRN 08/09/19 [History] Vitamin B6-pyridOXINE [Vitamin B6] 200 mg PO DAILY 08/09/19 [History] predniSONE [Prednisone] 20 - 40 mg PO ASDIRECTED PRN 08/09/19 [History] Losartan [Cozaar] 12.5 mg PO DAILY 08/11/19 [History] Cholecalciferol (Vitamin D3) [Vitamin D3] 5,000 unit PO DAILY 04/15/20 [History] Cyanocobalamin (Vitamin B12) [Vitamin B12] 1,000 mcg PO DAILY 04/15/20 [History] Cyclobenzaprine [Flexeril] 5 - 10 mg PO BID PRN 04/15/20 [History] Docosahexaenoic Acid [Algal [place]-3 Dha] 200 mg PO DAILY 04/15/20 [History] Docusate Sodium/Sennosides [Senokot-S] 1 - 3 each PO DAILY PRN 04/15/20 [History] Dorzolamide HCl/Pf [Dorzolamide 2% Eye Drop] 1 drop EYERT BID 04/15/20 [History] FA/Lycopene/Lut/MV,Ca,Iron,Min [Centrum] 1 tab PO DAILY 04/15/20 [History] Garlic 1 each PO DAILY 04/15/20 [History] Sennosides [Senna] 8.6 mg PO BID PRN 04/15/20 [History] Zinc 50 mg PO DAILY 04/15/20 [History] - CURRENT (IN HOUSE) MEDS Current Meds: Current Medications Acetaminophen (Tylenol) 975 mg PO ONETIME MOHINDER Stop: 04/18/20 12:00 Last Admin: 04/18/20 08:00 Dose: 975 mg Documented by: Aspirin (Ecotrin) 325 mg PO BID MOHINDER Bisacodyl (Dulcolax) 5 mg PO DAILY PRN PRN Reason: Constipation Morphine Sulfate 8 mg/Epinephrine HCl 0.3 mg/Cefuroxime Sodium 750 mg/Ketorolac Tromethamine 30 mg/Sodium Chloride 7.9 ml 0 mg .XX ASDIRECTED PRN PRN Reason: Pain Cyclobenzaprine HCl (Flexeril) 10 mg PO TID PRN PRN Reason: Spasms Docusate Sodium (Colace) 100 mg PO BID MOHINDER Famotidine (Pepcid) 20 mg PO Q12H MOHINDER Lactated Ringer's (Ringers, Lactated) 1,000 mls @ 125 mls/hr IV ASDIRECTED MOHINDER Stop: 04/18/20 23:00 Last Admin: 04/18/20 07:17 Dose: 125 mls/hr Documented by: Cefazolin Sodium/Dextrose 2 gm (/ Premix) 50 mls @ 100 mls/hr IV Q8H MOHINDER Stop: 04/18/20 23:14 Lactated Ringer's (Ringers, Lactated) 1,000 mls @ 125 mls/hr IV ASDIRECTED MOHINDER Stop: 04/18/20 23:00 Ketorolac Tromethamine (Toradol) 15 mg IVPUSH Q6H PRN PRN Reason: Pain Lidocaine/Sodium Bicarbonate (Buffered Lidocaine 1% In Ns 8.4%) 0.25 ml IDERM ONETIME PRN PRN Reason: Prior to IV Start Stop: 04/18/20 18:00 Last Admin: 04/18/20 07:17 Dose: 0.25 ml Documented by: Lidocaine/Sodium Bicarbonate (Buffered Lidocaine 1% In Ns 8.4%) 0.25 ml IDERM ONETIME PRN PRN Reason: Prior to IV Start Stop: 04/18/20 12:00 Magnesium Hydroxide (Milk Of Magnesia) 30 ml PO BID PRN PRN Reason: Constipation Morphine Sulfate (Morphine) 2 mg IVPUSH Q2H PRN PRN Reason: Breakthrough Pain Naloxone HCl (Narcan) 0.1 mg IVPUSH Q5M PRN PRN Reason: Oversedation Ondansetron HCl (Zofran) 4 mg IVPUSH Q6H PRN PRN Reason: Nausea/Vomiting Oxycodone HCl (Oxycontin) 10 mg PO ONETIME MOHINDER Stop: 04/18/20 12:00 Last Admin: 04/18/20 08:00 Dose: 10 mg Documented by: Oxycodone/Acetaminophen (Percocet 325-5 Mg) 1 - 2 tab PO Q4H PRN PRN Reason: Pain Pregabalin (Lyrica) 50 mg PO ONETIME MOHINDER Stop: 04/18/20 12:00 Last Admin: 04/18/20 08:00 Dose: 50 mg Documented by: Scopolamine (Transderm-Scop) 1.5 mg TOP ONETIME MOHINDER Stop: 04/18/20 12:00 Last Admin: 04/18/20 08:00 Dose: 1.5 mg Documented by: Senna (Senna) 8.6 mg PO BID PRN PRN Reason: Constipation Sodium Chloride (Saline Flush) 10 ml FLUSH ASDIRECTED PRN PRN Reason: Keep Vein Open Stop: 04/18/20 18:00 Sodium Chloride (Saline Flush) 10 ml FLUSH ASDIRECTED PRN PRN Reason: Keep Vein Open Discontinued Medications Bupivacaine HCl (Sensorcaine-Mpf 0.25%) Confirm Administered Dose 40 ml .ROUTE .STK-MED ONE Stop: 04/18/20 07:35 Cefazolin Sodium (Ancef) Confirm Administered Dose 2 gm .ROUTE .STK-MED ONE Stop: 04/18/20 07:35 Cefazolin Sodium (Ancef) Confirm Administered Dose 2 gm .ROUTE .STK-MED ONE Stop: 04/18/20 07:58 Epinephrine HCl (Adrenalin) Confirm Administered Dose 1 mg .ROUTE .STK-MED ONE Stop: 04/18/20 07:06 Famotidine (Pepcid) 20 mg IVPUSH ONETIME ONE Stop: 04/18/20 07:53 Last Admin: 04/18/20 08:01 Dose: 20 mg Documented by: Fentanyl (Sublimaze) Confirm Administered Dose 100 mcg .ROUTE .STK-MED ONE Stop: 04/18/20 07:29 Iodine (Iodine 2% Mild Tincture) Confirm Administered Dose 30 ml .ROUTE .STK-MED ONE Stop: 04/18/20 07:35 Lidocaine HCl (Xylocaine-Mpf 1%) Confirm Administered Dose 5 ml .ROUTE .STK-MED ONE Stop: 04/18/20 07:28 Midazolam HCl (Versed 1 Mg/Ml) Confirm Administered Dose 2 mg .ROUTE .STK-MED ONE Stop: 04/18/20 07:58 Morphine Sulfate (Duramorph Pf) Confirm Administered Dose 10 mg .ROUTE .STK-MED ONE Stop: 04/18/20 07:29 Ondansetron HCl (Zofran) 4 mg IVPUSH ONETIME ONE Stop: 04/18/20 07:53 Ondansetron HCl (Zofran) Confirm Administered Dose 4 mg .ROUTE .STK-MED ONE Stop: 04/18/20 07:58 Propofol (Diprivan 20 Ml) Confirm Administered Dose 400 mg .ROUTE .STK-MED ONE Stop: 04/18/20 07:29 Ropivacaine (Naropin 0.5%) Confirm Administered Dose 30 ml .ROUTE .STK-MED ONE Stop: 04/18/20 07:06 Tranexamic Acid (Cyklokapron) Confirm Administered Dose 1,000 mg .ROUTE .STK-MED ONE Stop: 04/18/20 07:51 Triamcinolone Acetonide (Kenalog-40) Confirm Administered Dose 40 mg .ROUTE .STK-MED ONE Stop: 04/18/20 07:35 Vancomycin HCl (Vancomycin) Confirm Administered Dose 1 gm .ROUTE .STK-MED ONE Stop: 04/18/20 07:35
[2020-04-18] MEDS: Bupivacaine 0.25% 10 ML SDV ONE ×2 (10:20→10:23)
--- NOTE | 2020-04-18 10:25 | PCM.SN.2 ---
- Free Text/Narrative Note: During course of spinal/MAC anesthetic, the patient "woke" and said "I'm awake and don't want to be" despite being heavily sedated with propofol. I administered 1 mg IV versed with 25 mcg IV fentanyl and the patient went apneic for approximately 5 minutes, requiring BMV assistance to keep SpO2 > 90%. The patient had a transient desaturation period that lasted nearly 3 minutes and went as low as 71%. BM assistance resolved the problem until she was taking more effective breaths.
--- NOTE | 2020-04-18 11:38 | CR ---
Left knee: AP and crosstable lateral views left knee were obtained. Comparison: No prior knee exam. Knee prosthesis is seen. Components are aligned. Underlying bony structures are intact. Soft tissue air is noted from surgical procedure. Impression: 1. Satisfactory postop radiographic appearance of recently placed left knee prosthesis. Diagnostic code #2 This report was dictated in MDT
--- NOTE | 2020-04-18 12:03 | PCM.POSTAN ---
POST ANESTHESIA ASSESSMENT - MENTAL STATUS Mental Status: Alert, Oriented - VITAL SIGNS Vital Signs: Last Vital Signs Temp 36.7 C 04/18/20 11:15 Pulse 71 04/18/20 11:15 Resp 14 04/18/20 11:15 BP 119/66 04/18/20 11:15 Pulse Ox 100 04/18/20 11:16 - RESPIRATORY Respiratory Status: Respiratory Rate WNL, Airway Patent, O2 Saturation Stable, Supplemental Oxygen (2L NC) - CARDIOVASCULAR CV Status: Pulse Rate WNL, Blood Pressure Stable - GASTROINTESTINAL GI Status: No Symptoms - PAIN Pain Score: 0 - POST OP HYDRATION Hydration Status: Adequate & Stable - OBSERVATIONS Free Text/Narrative:: Routine transfer with handoff to RN in PACU. VSS, SV, LUCAS, FAC, CTAB. No concerns at this time.
[2020-04-18] MEDS: Ketorolac 15 MG/ML SDV IVPUSH PRN ×2 (13:04→20:17)
[2020-04-18] MEDS: Acetaminophen/oxyCODONE 325-5 MG Tab PO PRN ×2 (14:09→21:30)
[2020-04-18] MEDS: Ondansetron 4 MG/2 ML SDV IVPUSH PRN ×2 (14:30→20:14)
[2020-04-18] MEDS ORDERED: Cyclobenzaprine 10 MG Tab PO PRN (15:00)
[2020-04-18] MEDS: ceFAZolin 2 GM in Premix Bag 1 BAG IV SCH (16:30)
[2020-04-18] MEDS ORDERED: Non-Formulary Medication 1 Each (Epinephrine [Epipen] 0.3 MG) IM PRN (19:10)
[2020-04-18] MEDS ORDERED: PROPYLENE GLYC TOP PRN (19:10)
[2020-04-18] MEDS ORDERED: BETAMETHASONE TOP PRN (19:10)
[2020-04-18] MEDS: TIMOLOL EYERT SCH (20:25)
[2020-04-18] MEDS: OPTH EYERT SCH (20:25)
[2020-04-18] MEDS: BRIMONIDINE TARTRATE EYERT SCH (20:25)
[2020-04-18] MEDS: DORZOLAMIDE HCL EYERT SCH (20:26)
[2020-04-18] MEDS ORDERED: Famotidine 20 MG Tab PO SCH (21:00)
[2020-04-18] MEDS ORDERED: TRAVOPROST EYERT SCH (21:00)
[2020-04-18] MEDS ORDERED: Fluticasone Propionate Nasal Spray 16 GM Bottle NAS SCH (21:00)
[2020-04-18] MEDS ORDERED: Sennosides 8.6 MG Tab PO PRN (21:00)
[2020-04-18] MEDS: Docusate Sodium 100 MG Cap PO SCH (21:26)
[2020-04-19] MEDS: ceFAZolin 2 GM in Premix Bag 1 BAG IV SCH ×2 (00:28→07:57)
[2020-04-19] MEDS: Ketorolac 15 MG/ML SDV IVPUSH PRN (01:12)
[2020-04-19] MEDS: Acetaminophen/oxyCODONE 325-5 MG Tab PO PRN ×2 (04:28→08:36)
[2020-04-19] MEDS ORDERED: Levothyroxine 150 MCG Tab PO SCH (06:00)
[2020-04-19] MEDS ORDERED: LEVOTHYROXINE 150 MCG PO SCH (07:42)
--- NOTE | 2020-04-19 08:24 | PCM48HPAN ---
Post Anesthesia Note - EVALUATION WITHIN 48HRS OF ANESTHETIC Vital Signs in Normal Range: Yes Patient Participated in Evaluation: Yes Respiratory Function Stable: Yes Airway Patent: Yes Cardiovascular Function Stable: Yes Hydration Status Stable: Yes Pain Control Satisfactory: Yes Nausea and Vomiting Control Satisfactory: Yes Mental Status Recovered: Yes Vital Signs: Last Vital Signs Temp 36.7 C 04/19/20 04:40 Pulse 80 04/19/20 04:40 Resp 14 04/19/20 04:40 BP 134/54 L 04/19/20 04:40 Pulse Ox 92 L 04/19/20 04:40 - COMMENTS/OBSERVATIONS Free Text/Narrative:: Nausea with standing yesterday. Resolved today able to eat a big breakfast. Doing well. Pain is tolerable. Looking forward to going home today. No complications noted. No further questions at this time.
[2020-04-19] MEDS ORDERED: Aspirin 325 MG Tab.EC PO SCH (09:00)
[2020-04-19] MEDS ORDERED: valACYclovir 500 MG Tab PO SCH (09:00)
[2020-04-19] MEDS ORDERED: FLUNISOLIDE 0.025% SCH (09:00)
[2020-04-19] MEDS ORDERED: Pantoprazole 40 MG Tab.CR PO SCH (09:00)
[2020-04-19] MEDS ORDERED: Finasteride 5 MG Tab **PTOM PO SCH (09:00)
[2020-04-19] MEDS ORDERED: Cholecalciferol (Vitamin D3) 5,000 UNIT Tab PO SCH (09:00)
[2020-04-19] MEDS ORDERED: PREDNISOLONE ACETATE 1% EYELF SCH (09:00)
[2020-04-19] MEDS ORDERED: Losartan 25 MG Tab PO SCH (09:00)
[2020-04-19] MEDS ORDERED: EYE EYELF SCH (09:00)
[2020-04-19] MEDS: Docusate Sodium 100 MG Cap PO SCH (09:34)
--- NOTE | 2020-04-19 09:36 | PCM.SURGPN ---
- General Info Date of Service: 04/19/20 POD#: 1 Functional Status: Reports: Pain Controlled, Tolerating Diet, Ambulating, Urinating, Incentive Spirometry, Other (The pt states she is doing well.) - Patient Data Vitals - Most Recent: Last Vital Signs Temp 98.1 F 04/19/20 04:40 Pulse 80 04/19/20 04:40 Resp 14 04/19/20 04:40 BP 134/54 L 04/19/20 04:40 Pulse Ox 92 L 04/19/20 04:40 Weight - Most Recent: 190 lb 4.14 oz I&O - Last 24 Hours: Intake & Output 04/18/20 04/19/20 04/19/20 22:59 06:59 14:59 Intake Total 480 Output Total 500 700 400 Balance -20 -700 -400 Lab Results Last 24 Hrs: Laboratory Results - last 24 hr 04/19/20 04/19/20 Range/Units 04:46 04:46 WBC 12.22 H (3.98-10.04) K/mm3 RBC 3.54 L (3.98-5.22) M/mm3 Hgb 11.3 D (11.2-15.7) gm/dl Hct 35.5 (34.1-44.9) % MCV 100.3 H (79.4-94.8) fl MCH 31.9 (25.6-32.2) pg MCHC 31.8 L (32.2-35.5) g/dl RDW Std Deviation 47.6 H (36.4-46.3) fL Plt Count 305 (182-369) K/mm3 MPV 10.7 (9.4-12.3) fl Sodium 135 L (136-145) mEq/L Potassium 4.1 (3.5-5.1) mEq/L Chloride 100 (98-107) mEq/L Carbon Dioxide 26 (21-32) mEq/L Anion Gap 13.1 (5-15) BUN 14 (7-18) mg/dL Creatinine 0.8 (0.55-1.02) mg/dL Est Cr Clr Drug Dosing 59.73 mL/min Estimated GFR (MDRD) > 60 (>60) mL/min BUN/Creatinine Ratio 17.5 (14-18) Glucose 118 H (80-115) mg/dL Calcium 8.5 (8.5-10.1) mg/dL Total Bilirubin 0.5 (0.2-1.0) mg/dL AST 19 (15-37) U/L ALT 24 (14-59) U/L Alkaline Phosphatase 44 L (46-116) U/L Total Protein 6.1 L (6.4-8.2) g/dl Albumin 2.8 L (3.4-5.0) g/dl Globulin 3.3 gm/dL Albumin/Globulin Ratio 0.9 L (1-2) Med Orders - Current: Current Medications Aspirin (Ecotrin) 325 mg PO BID [facility] Bisacodyl (Dulcolax) 5 mg PO DAILY PRN PRN Reason: Constipation Cholecalciferol (Vitamin D3) 5,000 unit PO DAILY [facility] Cyclobenzaprine HCl (Flexeril) 10 mg PO TID PRN PRN Reason: Spasms Last Admin: 04/18/20 21:25 Dose: 5 mg Documented by: Docusate Sodium (Colace) 100 mg PO BID [facility] Last Admin: 04/18/20 21:26 Dose: 100 mg Documented by: Finasteride (Proscar) 1.25 mg PO DAILY [facility] Levothyroxine Sodium (Levothyroxine) 150 mcg PO ACBREAKFAST [facility] Losartan Potassium (Cozaar) 12.5 mg PO DAILY [facility] Magnesium Hydroxide (Milk Of Magnesia) 30 ml PO BID PRN PRN Reason: Constipation Morphine Sulfate (Morphine) 2 mg IVPUSH Q2H PRN PRN Reason: Breakthrough Pain Naloxone HCl (Narcan) 0.1 mg IVPUSH Q5M PRN PRN Reason: Oversedation Brimonidine Tartrate /Timolol [Combigan] 0.2%-0.5% Opth Own Med 1 drop EYERT BID [facility] Last Admin: 04/18/20 20:25 Dose: Not Given Documented by: Dorzolamide Hcl/Pf [ Dorzolamide 2% Eye Drop] Own Med 1 drop EYERT BID [facility] Last Admin: 04/18/20 20:26 Dose: Not Given Documented by: Prednisolone Acetate 1% Eye Drop Own Med 1 drop EYELF DAILY [facility] Travoprost [Travatan Z] Ophth Own Med 1 drop EYERT BEDTIME [facility] Last Admin: 04/18/20 20:27 Dose: Not Given Documented by: Omeprazole 40 Mg Cap (Ptom) 0 each PO DAILY [facility] Flunisolide Nasal (Harpster 0.025% Ptom) 0 each .XX BID [facility] Ondansetron HCl (Zofran) 4 mg IVPUSH Q6H PRN PRN Reason: Nausea/Vomiting Last Admin: 04/18/20 20:14 Dose: 4 mg Documented by: Oxycodone/Acetaminophen (Percocet 325-5 Mg) 1 - 2 tab PO Q4H PRN PRN Reason: Pain Last Admin: 04/19/20 08:36 Dose: 1 tab Documented by: Senna (Senna) 8.6 mg PO BID PRN PRN Reason: Constipation Valacyclovir HCl (Valtrex) 500 mg PO DAILY [facility] Discontinued Medications Acetaminophen (Tylenol) 975 mg PO ONETIME [facility] Stop: 04/18/20 12:00 Last Admin: 04/18/20 08:00 Dose: 975 mg Documented by: Bupivacaine HCl (Sensorcaine-Mpf 0.25%) Confirm Administered Dose 40 ml .ROUTE .STK-MED ONE Stop: 04/18/20 07:35 Last Admin: 04/18/20 10:23 Dose: 2 ml Documented by: Cefazolin Sodium (Ancef) Confirm Administered Dose 2 gm .ROUTE .STK-MED ONE Stop: 04/18/20 07:35 Last Admin: 04/18/20 10:11 Dose: 2 gm Documented by: Cefazolin Sodium (Ancef) Confirm Administered Dose 2 gm .ROUTE .STK-MED ONE Stop: 04/18/20 07:58 Morphine Sulfate 8 mg/Epinephrine HCl 0.3 mg/Cefuroxime Sodium 750 mg/Ketorolac Tromethamine 30 mg/Sodium Chloride 7.9 ml 0 mg .XX ASDIRECTED PRN PRN Reason: Pain Stop: 04/18/20 12:00 Last Admin: 04/18/20 10:22 Dose: 788.3 mg Documented by: Epinephrine HCl (Adrenalin) Confirm Administered Dose 1 mg .ROUTE .STK-MED ONE Stop: 04/18/20 07:06 Famotidine (Pepcid) 20 mg PO Q12H [facility] Last Admin: 04/18/20 21:25 Dose: 20 mg Documented by: Famotidine (Pepcid) 20 mg IVPUSH ONETIME ONE Stop: 04/18/20 07:53 Last Admin: 04/18/20 08:01 Dose: 20 mg Documented by: Fentanyl (Sublimaze) Confirm Administered Dose 100 mcg .ROUTE .STK-MED ONE Stop: 04/18/20 07:29 Fentanyl (Sublimaze) Confirm Administered Dose 100 mcg .ROUTE .STK-MED ONE Stop: 04/18/20 09:45 Fluticasone Propionate (Flonase) 0 gm SHYAM BID [facility] Last Admin: 04/18/20 20:26 Dose: Not Given Documented by: Lactated Ringer's (Ringers, Lactated) 1,000 mls @ 125 mls/hr IV ASDIRECTED [facility] Stop: 04/18/20 23:00 Last Admin: 04/18/20 07:17 Dose: 125 mls/hr Documented by: Cefazolin Sodium/Dextrose 2 gm (/ Premix) 50 mls @ 100 mls/hr IV Q8H [facility] Stop: 04/19/20 08:29 Last Admin: 04/19/20 07:57 Dose: 100 mls/hr Documented by: Lactated Ringer's (Ringers, Lactated) 1,000 mls @ 125 mls/hr IV ASDIRECTED [facility] Stop: 04/18/20 23:00 Iodine (Iodine 2% Mild Tincture) Confirm Administered Dose 30 ml .ROUTE .STK-MED ONE Stop: 04/18/20 07:35 Last Admin: 04/18/20 10:08 Dose: 18 ml Documented by: Ketorolac Tromethamine (Toradol) 15 mg IVPUSH Q6H PRN PRN Reason: Pain Last Admin: 04/19/20 01:12 Dose: 15 mg Documented by: Levothyroxine Sodium (Levothyroxine) 150 mcg PO ACBREAKFAST [facility] Last Admin: 04/19/20 07:36 Dose: Not Given Documented by: Lidocaine HCl (Xylocaine-Mpf 1%) Confirm Administered Dose 5 ml .ROUTE .STK-MED ONE Stop: 04/18/20 07:28 Lidocaine/Sodium Bicarbonate (Buffered Lidocaine 1% In Ns 8.4%) 0.25 ml IDERM ONETIME PRN PRN Reason: Prior to IV Start Stop: 04/18/20 18:00 Last Admin: 04/18/20 07:17 Dose: 0.25 ml Documented by: Lidocaine/Sodium Bicarbonate (Buffered Lidocaine 1% In Ns 8.4%) 0.25 ml IDERM ONETIME PRN PRN Reason: Prior to IV Start Stop: 04/18/20 12:00 Midazolam HCl (Versed 1 Mg/Ml) Confirm Administered Dose 2 mg .ROUTE .STK-MED ONE Stop: 04/18/20 07:58 Midazolam HCl (Versed 1 Mg/Ml) Confirm Administered Dose 2 mg .ROUTE .STK-MED ONE Stop: 04/18/20 09:47 Morphine Sulfate (Duramorph Pf) Confirm Administered Dose 0 mg .ROUTE .STK-MED ONE Stop: 04/18/20 07:29 Betamethasone/Propylene Glyc [ Betamethasone Dp Aug 0.05% 1 applic TOP BID PRN PRN Reason: Bee/Wasp sting Non-Formulary Medication (Epinephrine [Epipen]) 0.3 mg IM ONETIME PRN PRN Reason: Bee/Wasp Sting Ondansetron HCl (Zofran) 4 mg IVPUSH ONETIME ONE Stop: 04/18/20 07:53 Last Admin: 04/18/20 12:57 Dose: Not Given Documented by: Ondansetron HCl (Zofran) Confirm Administered Dose 4 mg .ROUTE .STK-MED ONE Stop: 04/18/20 07:58 Oxycodone HCl (Oxycontin) 10 mg PO ONETIME [facility] Stop: 04/18/20 12:00 Last Admin: 04/18/20 08:00 Dose: 10 mg Documented by: Pantoprazole Sodium (Protonix) 40 mg PO DAILY [facility] Pregabalin (Lyrica) 50 mg PO ONETIME [facility] Stop: 04/18/20 12:00 Last Admin: 04/18/20 08:00 Dose: 50 mg Documented by: Propofol (Diprivan 20 Ml) Confirm Administered Dose 400 mg .ROUTE .STK-MED ONE Stop: 04/18/20 07:29 Propofol (Diprivan 20 Ml) Confirm Administered Dose 200 mg .ROUTE .STK-MED ONE Stop: 04/18/20 09:44 Propofol (Diprivan 20 Ml) Confirm Administered Dose 200 mg .ROUTE .STK-MED ONE Stop: 04/18/20 10:21 Ropivacaine (Naropin 0.5%) Confirm Administered Dose 30 ml .ROUTE .STK-MED ONE Stop: 04/18/20 07:06 Scopolamine (Transderm-Scop) 1.5 mg TOP ONETIME [facility] Stop: 04/18/20 12:00 Last Admin: 04/18/20 08:00 Dose: 1.5 mg Documented by: Sodium Chloride (Saline Flush) 10 ml FLUSH ASDIRECTED PRN PRN Reason: Keep Vein Open Stop: 04/18/20 18:00 Sodium Chloride (Saline Flush) 10 ml FLUSH ASDIRECTED PRN PRN Reason: Keep Vein Open Tranexamic Acid (Cyklokapron) Confirm Administered Dose 1,000 mg .ROUTE .STK-MED ONE Stop: 04/18/20 07:51 Last Admin: 04/18/20 10:21 Dose: 1,000 mg Documented by: Triamcinolone Acetonide (Kenalog-40) Confirm Administered Dose 40 mg .ROUTE .STK-MED ONE Stop: 04/18/20 07:35 Last Admin: 04/18/20 10:23 Dose: 40 mg Documented by: Vancomycin HCl (Vancomycin) Confirm Administered Dose 1 gm .ROUTE .STK-MED ONE Stop: 04/18/20 07:35 Last Admin: 04/18/20 10:23 Dose: 1 gm Documented by: - Exam Wound/Incisions: Other (Shadowing noted inferiorly.) General: Alert, Cooperative, No Acute Distress Lungs: Normal Respiratory Effort Extremities: Other (NVS intact for LLE. Raheel's negative.) Sepsis Event Note - Evaluation Sepsis Screening Result: No Definite Risk - Focused Exam Vital Signs: Vital Signs Temp Pulse Resp BP Pulse Ox 04/19/20 04:40 98.1 F 80 14 134/54 L 92 L 04/19/20 01:33 98.2 F 84 14 121/65 94 L - Problem List Review Problem List Initiated/Reviewed/Updated: Yes - My Orders Last 24 Hours: Active Orders 24 hr Category Date Time Status Communication Order [RC] ASDIRECTED Care 04/19/20 09:27 Ordered Ready for Discharge [RC] PER UNIT ROUTINE Care 04/19/20 09:33 Ordered Regular Diet [DIET] Diet 04/18/20 Lunch Active Aspirin [Ecotrin] Med 04/19/20 09:00 Active 325 mg PO BID Brimonidine Tartrate/Timolol [Combigan 0.2%-0.5% Eye Med 04/18/20 21:00 Active Drops] 1 drop EYERT BID Cholecalciferol (Vitamin D3) [Vitamin D3] Med 04/19/20 09:00 Active 5,000 unit PO DAILY Cyclobenzaprine [Flexeril] Med 04/18/20 15:00 Active 10 mg PO TID PRN Docusate Sodium [Colace] Med 04/18/20 21:00 Active 100 mg PO BID Dorzolamide HCl/Pf [Dorzolamide 2% Eye Drop] Med 04/18/20 21:00 Active 1 drop EYERT BID Finasteride [Proscar] Med 04/19/20 09:00 Active 1.25 mg PO DAILY Levothyroxine Med 04/20/20 06:00 Active 150 mcg PO ACBREAKFAST Losartan [Cozaar] Med 04/19/20 09:00 Active 12.5 mg PO DAILY Non-Formulary Medication [NF Drug] Med 04/19/20 09:00 Active 0 each .XX BID Non-Formulary Medication [NF Drug] Med 04/20/20 09:00 Active 0 each PO DAILY Prednisolone Acetate/Pf [Prednisolone Acet 1% Eye Drop] Med 04/19/20 09:00 Active 1 drop EYELF DAILY Sennosides [Senna] Med 04/18/20 21:00 Active 8.6 mg PO BID PRN Travoprost [Travatan Z] Med 04/18/20 21:00 Active 1 drop EYERT BEDTIME valACYclovir [Valtrex] Med 04/19/20 09:00 Active 500 mg PO DAILY Medication Orders Aspirin (Ecotrin) 325 mg PO BID [facility] Bisacodyl (Dulcolax) 5 mg PO DAILY PRN PRN Reason: Constipation Cholecalciferol (Vitamin D3) 5,000 unit PO DAILY [facility] Cyclobenzaprine HCl (Flexeril) 10 mg PO TID PRN PRN Reason: Spasms Last Admin: 04/18/20 21:25 Dose: 5 mg Documented by: [id number] Docusate Sodium (Colace) 100 mg PO BID [facility] Last Admin: 04/18/20 21:26 Dose: 100 mg Documented by: [id number] Finasteride (Proscar) 1.25 mg PO DAILY [facility] Levothyroxine Sodium (Levothyroxine) 150 mcg PO ACBREAKFAST [facility] Losartan Potassium (Cozaar) 12.5 mg PO DAILY [facility] Magnesium Hydroxide (Milk Of Magnesia) 30 ml PO BID PRN PRN Reason: Constipation Morphine Sulfate (Morphine) 2 mg IVPUSH Q2H PRN PRN Reason: Breakthrough Pain Naloxone HCl (Narcan) 0.1 mg IVPUSH Q5M PRN PRN Reason: Oversedation Brimonidine Tartrate /Timolol [Combigan] 0.2%-0.5% Opth Own Med 1 drop EYERT BID [facility] Last Admin: 04/18/20 20:25 Dose: Not Given Documented by: ELOY Dorzolamide Hcl/Pf [ Dorzolamide 2% Eye Drop] Own Med 1 drop EYERT BID [facility] Last Admin: 04/18/20 20:26 Dose: Not Given Documented by: ELOY Prednisolone Acetate 1% Eye Drop Own Med 1 drop EYELF DAILY [facility] Travoprost [Travatan Z] Ophth Own Med 1 drop EYERT BEDTIME [facility] Last Admin: 04/18/20 20:27 Dose: Not Given Documented by: ELOY Omeprazole 40 Mg Cap (Ptom) 0 each PO DAILY [facility] Flunisolide Nasal (Harpster 0.025% Ptom) 0 each .XX BID [facility] Ondansetron HCl (Zofran) 4 mg IVPUSH Q6H PRN PRN Reason: Nausea/Vomiting Last Admin: 04/18/20 20:14 Dose: 4 mg Documented by: Admin: 04/18/20 14:30 Dose: 4 mg Documented by: JESSE Oxycodone/Acetaminophen (Percocet 325-5 Mg) 1 - 2 tab PO Q4H PRN PRN Reason: Pain Last Admin: 04/19/20 08:36 Dose: 1 tab Documented by: Admin: 04/19/20 04:28 Dose: 1 tab Documented by: Admin: 04/18/20 21:30 Dose: 1 tab Documented by: Admin: 04/18/20 14:09 Dose: 1 tab Documented by: JESSE Senna (Senna) 8.6 mg PO BID PRN PRN Reason: Constipation Valacyclovir HCl (Valtrex) 500 mg PO DAILY [facility] - Assessment Assessment (Free Text/Narrative):: POD#1 - left TKA with left carpal tunnel injection - Plan Plan (Free Text/Narrative):: 1. Hgb 11.3. 2. ASA PO BID, frequent mobility, TEDs. 3. Discharge to home today. 4. Outpatient therapy. 5. Mepilex change prior to d/c due to shadowing noted at dressing. The pt was evaluated by Dr. Elliot hill.
[2020-04-19] MEDS: TIMOLOL EYERT SCH (09:41)
[2020-04-19] MEDS: BRIMONIDINE TARTRATE EYERT SCH (09:41)
[2020-04-19] MEDS: OPTH EYERT SCH (09:41)
[2020-04-19] MEDS: DORZOLAMIDE HCL EYERT SCH (09:42)
[2020-04-20] MEDS ORDERED: LEVOTHYROXINE 150 MCG PO SCH (06:00)
[2020-04-20] MEDS ORDERED: OMEPRAZOLE 40 MG PO SCH (09:00)
--- NOTE | 2020-04-26 07:52 | PCM.OPNOTE ---
- General Post-Op/Procedure Note Date of Surgery/Procedure: 04/18/20 Operative Procedure(s): left total knee arthroplasty with left carpal tunnel injection Pre Op Diagnosis: left knee osteoarthritis and left carpal tunnel syndrome Post-Op Diagnosis: Same Anesthesia Technique: Local, MAC, Spinal Primary Surgeon: Marlon Zarate Anesthesia Provider: Reg[employer] Supervisor: Shanna Miller EBShawn in mLs: 150 Complications: None Condition: Good Free Text/Narrative:: 3/3 9mm 32x10
--- NOTE | 2020-04-26 10:59 | OR ---
DATE OF OPERATION: 04/18/2020 SURGEON: Marlon Zarate MD OPERATION PERFORMED: Left total knee arthroplasty with left carpal tunnel injection. PREOPERATIVE DIAGNOSIS: Left knee osteoarthritis and left carpal tunnel syndrome. POSTOPERATIVE DIAGNOSIS: Left knee osteoarthritis and left carpal tunnel syndrome. ANESTHESIA: Local MAC with spinal. ANESTHESIA PROVIDER: Regulo Colindres. MANAGER NURSING: Shanna Miller LPN. ESTIMATED BLOOD LOSS: 150 mL. COMPLICATIONS: None. CONDITION: Stable. IMPLANT: 1. [employer] Points size 3 press-fit CR femur. 2. [employer] Points size 3 press-fit tibial baseplate. 3. Mikel size 3, 9 mm CS polyethylene insert. 4. [employer] Points size 32 x 10 mm press-fit asymmetric patella. DESCRIPTION OF PROCEDURE: The patient was identified in the preop holding area. Proper site was marked and identified by the surgeon. The patient was taken back to the operating theater. After adequate anesthesia, the patient's left lower extremity had a nonsterile tourniquet applied and it was sterilely prepped and draped in the usual sterile fashion. OR time-out was performed. The patient received 2 g IV Ancef. At this time, the left lower extremity was exsanguinated. Tourniquet was insufflated to 300 mmHg. Standard medial parapatellar incision was made. Medial parapatellar arthrotomy was created. Deep fibers of the MCL were raised and anterior fat pad was resected. At this time, attention was turned to the patella. Patella measured at 24, it was resected to a 14 for 32 x 10 mm patella. Drill holes were then drilled and found to be in adequate position. The drill was then drilled in the distal femur and the intramedullary distal femoral cutting guide was then placed. 8 mm was resected off the distal femur and was found to be an adequate resection. Sizing guide was placed. It was found to be a size 3 press-fit CR femur that was shown on the implant record at the beginning of this dictation. The drill holes were drilled for the epicondylar axis using Whitesides line and epicondyles as reference. At this time, the 4-in-1 cutting block was placed. An anterior posterior and anterior and posterior chamfer cuts were then completed. Attention was turned to the tibia. The posterior medial lateral retractors were placed. The extramedullary tibial guide was placed. It was placed in the old footprint of the ACL. It was aligned with the center of the ankle and 0 degrees of slope, 9 mm was then resected off the unaffected side. There was found to be an acceptable reduction. At this time, posterior osteophytes were removed along with medial and lateral meniscus. A trial implant was placed with a correct sized tibia that was mentioned at the beginning of the dictation. A Mikel size 3, 9 mm CS polyethylene insert was then placed. The patient's knee was brought through range of motion. The patella was tracking centrally and was stable to varus and valgus stress. Alignment was found to be roughly at 0 degrees. The tibia was stamped and drilled in proper rotation. The universal tibial base plate was impacted in place. Next, the Mikel size 3 press-fit CR femur impacted into place and the Mikel size 3, 9 mm CS polyethylene insert was placed. The patient's knee was brought into full extension. The patella was then press-fit in place at this time. Tourniquet was deflated. One liter dilute Betadine solution was irrigated through the knee along with 3 L of pulse lavage irrigation with Ancef. Periarticular injection was then completed. The patient's knee was brought through a range of motion. Knee was found to be stable to varus valgus stress, the patella was tracking centrally with full range of motion. At this time, a #2 barbed suture was used for closure of the medial parapatellar arthrotomy. Topical tranexamic acid was placed. 2-0 Vicryl was used subcutaneously, Prineo was used for the skin. The patient tolerated the procedure well and was sent to the PACU in stable condition. After this was completed under sterile technique, 1 mL of 40 mg Kenalog, 2 mL of 0.25% Marcaine were injected in the patient's left carpal tunnel. Patient tolerated all procedures well. JIN /[id number] [facility]
== END 2020-04-19 10:37 | disposition home or self-care (01) ==
LOC: JD.MS 06:37 → JD.SDS 06:37 → JD.OB 06:37 → JD.SDS 04-19 10:37
PROVIDERS: ATTEND Orthopaedic Surgery
DX: M17.12 Unilateral primary osteoarthritis, left knee (principal); G56.02 Carpal tunnel syndrome, left upper limb; M25.762 Osteophyte, left knee; I10 Essential (primary) hypertension; E03.9 Hypothyroidism, unspecified; E66.9 Obesity, unspecified; K21.9 Gastro-esophageal reflux disease without esophagitis; F32.9 Major depressive disorder, single episode, unspecified; E78.00 Pure hypercholesterolemia, unspecified; Z01.812 Encounter for preprocedural laboratory examination; Z20.828 Contact with and (suspected) exposure to other viral communicable diseases; Z88.1 Allergy status to other antibiotic agents; Z88.2 Allergy status to sulfonamides; Z88.5 Allergy status to narcotic agent; Z91.030 Bee allergy status; Z79.899 Other long term (current) drug therapy; Z79.890 Hormone replacement therapy; Z88.7 Allergy status to serum and vaccine; Z68.33 Body mass index [BMI] 33.0-33.9, adult
CPT/HCPCS: 27447; 36415; 64721; 73560; 80053; 85027; 87641; 97110; 97116; 97161; 97165; 97535; A9270; C1776; J0171; J0690; J0697; J1885; J2001; J2250; J2270; J2405; J2704; J2795; J3010; J3301; J3370; J3490; J7120; 01402; 64450; U0002

== ENCOUNTER 2020-08-29 09:02 | Day surgery (SDC) | payer MEDICARE, BC ==
[~2020-08-29 09:02] MED LIST changes: +Acetaminophen 325 MG Tab PO SCH; +Morphine 8 MG, EPINEPHrine 0.3 MG, Cefuroxime 750 MG, Ketorolac 30 MG, Sodium Chloride ... SCH; +Pregabalin 25 MG Cap PO SCH; +oxyCODONE ER 10 MG TAB.ER PO SCH
[2020-08-29] MEDS ORDERED: Scopolamine 1.5 MG Transdermal Patch TRDERM PRN (09:31)
[2020-08-29] MEDS ORDERED: Vancomycin 1 GM SDV ONE (09:55)
[2020-08-29] MEDS ORDERED: Bupivacaine 0.25% 10 ML SDV ONE (09:55)
--- NOTE | 2020-08-29 10:33 | PCM.PREANE ---
Preanesthetic Assessment - Procedure Proposed Procedure: Right total knee arthroplasty - Anesthesia/Transfusion/Family Hx Anesthesia History: Prior Anesthesia Reaction Type of Anesthesia Reaction: Excessive Nausea/Vomiting Transfusion History: No Prior Transfusion(s) Intubation History: Unknown - Review of Systems General: No Symptoms Pulmonary: No Symptoms Cardiovascular: No Symptoms (Negative stress test due to EKG abnormalities, never had chest pain. History of palpatations. ) Gastrointestinal: Other (GERD) Neurological: Headache (Ocular migraines), Other (Fibromyalgia, generalized soreness and pain mostly in her back and neck. ) Other: Reports: Sinus Problem (Rhinitis, feels good today. ) - Physical Assessment NPO Status Date: 08/28/20 NPO Status Time: 23:15 Vital Signs: Last Vital Signs Temp 36.7 C 08/29/20 09:03 Pulse 99 08/29/20 09:03 Resp 20 08/29/20 09:03 BP 154/83 H 08/29/20 09:03 Pulse Ox 97 08/29/20 09:03 Height: 1.63 m Weight: 84.4 kg ASA Class: 2 Mental Status: Alert & Oriented x3 Airway Class: Mallampati = 3 Dentition: Reports: Normal Dentition Thyro-Mental Finger Breadths: 3 Mouth Opening Finger Breadths: 3 ROM/Head Extension: Full Lungs: Clear to Auscultation, Normal Respiratory Effort Cardiovascular: Regular Rate, Regular Rhythm - Lab Values: Laboratory Last Values SARS-CoV-2 (PCR) Not detected (NOT DETECT) 08/25/20 09:00 MRSA (PCR) Negative 08/12/20 12:18 - Allergies Allergies/Adverse Reactions: Allergies Allergy/AdvReac Type Severity Reaction Status Date / Time brimonidine [From Simbrinza] Allergy Burning Verified 08/29/20 09:32 brinzolamide [From Simbrinza] Allergy Burning Verified 08/29/20 09:32 cephalexin Allergy Rash Verified 08/29/20 09:32 doxycycline Allergy Rash Verified 08/29/20 09:32 levothyroxine sodium Allergy Rash Verified 08/29/20 09:32 paroxetine [Paroxetine] Allergy Rash Verified 08/29/20 09:32 red dye Allergy Cannot Verified 08/29/20 09:32 Remember sulfamethoxazole Allergy Rash Verified 08/29/20 09:32 [From Bactrim] Tetanus Vaccines and Toxoid Allergy Hives Verified 08/29/20 09:32 [Tetanus Vaccines & Toxoid] trimethoprim [From Bactrim] Allergy Rash Verified 08/29/20 09:32 venom-honey bee Allergy Itching Verified 08/29/20 09:32 [bee venom (honey bee)] clarithromycin AdvReac metallic Verified 08/29/20 09:32 taste codeine AdvReac Headache Verified 08/29/20 09:32 fenofibrate AdvReac Muscle Verified 08/29/20 09:32 Weakness fluoxetine AdvReac Diarrhea Verified 08/29/20 09:32 levofloxacin AdvReac irregular Verified 08/29/20 09:32 heart beat oseltamivir [From Tamiflu] AdvReac Nausea Verified 08/29/20 09:32 venlafaxine AdvReac Vomiting Verified 08/29/20 09:32 wasps Allergy Anaphylactic Uncoded 08/29/20 09:32 Shock - Anesthesia Plan Pre-Op Medication Ordered: Anxiolytic - Acknowledgements Anesthesia Type Planned: Spinal, Regional Block (Post operative Adductor Canal Block) Pt an Appropriate Candidate for the Planned Anesthesia: Yes Alternatives and Risks of Anesthesia Discussed w Pt/Guardian: Yes Pt/Guardian Understands and Agrees with Anesthesia Plan: Yes PreAnesthesia Questionnaire HEENT History: Reports: Allergic Rhinitis, Glaucoma, Impaired Vision Other HEENT History: corneal ulcer to left eye Cardiovascular History: Reports: Hypertension Other Cardiovascular History: abnormal EKG, chest tightness Respiratory History: Reports: Bronchitis, Recurrent, Pneumonia, Recurrent Other Respiratory History: cough, lower respiratory infection Gastrointestinal History: Reports: GERD, Irritable Bowel Syndrome, Other (See Below) Other Gastrointestinal History: stomach malrotation Genitourinary History: Reports: Urinary Incontinence Other Genitourinary History: stress urinary incontinence, leakage, cystocele and rectocele repair 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) Other OB/BYN History: breast pain, menopausal hot flashes Musculoskeletal History: Reports: Arthritis, Fibromyalgia, Osteoarthritis Other Musculoskeletal History: generalized weakness, joint swelling Neurological History: Reports: Migraines Psychiatric History: Reports: Depression, Other (See Below) Endocrine/Metabolic History: Reports: Hypothyroidism, Obesity/BMI 30+ Other Endocrine/Metabolic History: enlarged thyroid, thyroid nodule Hematologic History: Reports: Anemia Other Hematologic History: leukocytosis Immunologic History: Reports: None Oncologic (Cancer) History: Reports: None Dermatologic History: Reports: Eczema Other Dermatologic History: hair loss, actinic keratosis, facial flushing, seborrheic keratosis - Infectious Disease History Infectious Disease History: Reports: None - Past Surgical History Female Surgical History: Reports: Hysterectomy Musculoskeletal Surgical History: Reports: Carpal Tunnel, Other (See Below) Other Musculoskeletal Surgeries/Procedures:: foot surgery Dermatological Surgical History: Reports: Other (See Below) - SUBSTANCE USE Tobacco Use Status *Q: Never Tobacco User Recreational Drug Use History: No - HOME MEDS Home Medications: Home Meds Brimonidine Tartrate/Timolol [Combigan 0.2%-0.5% Eye Drops] 1 drop EYERT BID 08/03/18 [History] Finasteride 1.25 mg PO DAILY 08/03/18 [History] Flunisolide [Nasalide Nasal [place]] 2 spray NASBOTH BID 08/03/18 [History] Levothyroxine 150 mcg PO ACBREAKFAST 08/03/18 [History] Omeprazole 40 mg PO DAILY 08/03/18 [History] Spironolactone 150 mg PO DAILY 08/03/18 [History] Travoprost [Travatan Z] 1 drop EYERT BEDTIME 08/03/18 [History] valACYclovir HCl [Valtrex] 500 mg PO DAILY 08/03/18 [History] EPINEPHrine [Epipen] 0.3 mg IM ONETIME PRN 03/11/19 [History] Prednisolone Acetate/Pf [Prednisolone Acet 1% Eye Drop] 1 drop EYELF DAILY 08/07/19 [History] Betamethasone/Propylene Glyc [Betamethasone Dp Aug 0.05% Oin] 1 applic TOP BID PRN 08/09/19 [History] Vitamin B6-pyridOXINE [Vitamin B6] 200 mg PO DAILY 08/09/19 [History] Losartan [Cozaar] 12.5 mg PO DAILY 08/11/19 [History] Cholecalciferol (Vitamin D3) [Vitamin D3] 5,000 unit PO DAILY 04/15/20 [History] Cyanocobalamin (Vitamin B12) [Vitamin B12] 1,000 mcg PO DAILY 04/15/20 [History] Docosahexaenoic Acid [Algal [place]-3 Dha] 200 mg PO DAILY 04/15/20 [History] Docusate Sodium/Sennosides [Senokot-S] 1 - 3 each PO DAILY PRN 04/15/20 [History] Dorzolamide HCl/Pf [Dorzolamide 2% Eye Drop] 1 drop EYERT BID 04/15/20 [History] FA/Lycopene/Lut/MV,Ca,Iron,Min [Centrum] 1 tab PO DAILY 04/15/20 [History] Garlic 1 each PO DAILY 04/15/20 [History] Zinc 50 mg PO DAILY 04/15/20 [History] Loratadine [Claritin] 10 mg PO DAILY 08/26/20 [History] Orphenadrine [Norflex] 100 mg PO BID PRN 08/26/20 [History] estradioL [Estradiol] 0.5 mg PO DAILY 08/26/20 [History] estradioL [Estradiol] 1 mg PO DAILY 08/26/20 [History] Aspirin [Aspirin EC] 325 mg PO BID #84 tab 08/29/20 [Rx] Ondansetron [Zofran] 4 mg PO Q6H PRN #20 tab 08/29/20 [Rx] Orphenadrine Citrate [Orphenadrine Citrate ER] 100 mg PO BID PRN #20 tablet.er 08/29/20 [Rx] oxyCODONE 1 - 3 tab PO Q4H PRN #60 tab 08/29/20 [Rx] - CURRENT (IN HOUSE) MEDS Current Meds: Current Medications Acetaminophen (Tylenol) 975 mg PO ONETIME MOHINDER Stop: 08/29/20 13:00 Last Admin: 08/29/20 09:44 Dose: 975 mg Documented by: Morphine Sulfate 8 mg/Epinephrine HCl 0.3 mg/Cefuroxime Sodium 750 mg/Ketorolac Tromethamine 30 mg/Sodium Chloride 7.9 ml 0 mg .XX ONETIME MOHINDER Stop: 08/29/20 13:00 Lactated Ringer's (Ringers, Lactated) 1,000 mls @ 125 mls/hr IV ASDIRECTED MOHINDER Stop: 08/29/20 23:00 Last Admin: 08/29/20 09:20 Dose: 125 mls/hr Documented by: Lidocaine/Sodium Bicarbonate (Buffered Lidocaine 1% In Ns 8.4%) 0.25 ml IDERM ONETIME PRN PRN Reason: Prior to IV Start Stop: 08/29/20 23:00 Last Admin: 08/29/20 09:20 Dose: 0.25 ml Documented by: Oxycodone HCl (Oxycontin) 10 mg PO ONETIME MOHINDER Stop: 08/29/20 13:00 Last Admin: 08/29/20 09:44 Dose: 10 mg Documented by: Pregabalin (Lyrica) 50 mg PO ONETIME MOHINDER Stop: 08/29/20 13:00 Last Admin: 08/29/20 09:43 Dose: 50 mg Documented by: Scopolamine (Transderm-Scop) 1.5 mg TRDERM Q72H PRN PRN Reason: pre-procedure; hx of n/v Stop: 08/29/20 23:00 Last Admin: 08/29/20 09:43 Dose: 1.5 mg Documented by: Sodium Chloride (Saline Flush) 10 ml FLUSH ASDIRECTED PRN PRN Reason: Keep Vein Open Stop: 08/29/20 23:00 Discontinued Medications Bupivacaine HCl (Sensorcaine-Mpf 0.25%) Confirm Administered Dose 30 ml .ROUTE .STK-MED ONE Stop: 08/29/20 09:56 Tranexamic Acid (Cyklokapron) Confirm Administered Dose 1,000 mg .ROUTE .STK-MED ONE Stop: 08/29/20 09:56 Vancomycin HCl (Vancomycin) Confirm Administered Dose 1 gm .ROUTE .STK-MED ONE Stop: 08/29/20 09:56
[2020-08-29] MEDS ORDERED: ceFAZolin 1 GM Vial ONE (10:44)
[2020-08-29] MEDS ORDERED: Midazolam 1 MG/ML 2 ML SDV ONE (10:44)
[2020-08-29] MEDS ORDERED: Propofol 200 MG/20 ML SDV ONE (10:48)
[2020-08-29] MEDS ORDERED: Ropivacaine 0.5% 5 MG/ML 30 ML SDV ONE (10:51)
[2020-08-29] MEDS ORDERED: Dexmedetomidine 200 MCG/2 ML SDV ONE (10:54)
[2020-08-29] MEDS ORDERED: Lidocaine 1% 4 ML ONE (11:12)
--- NOTE | 2020-08-29 11:27 | PCM.PRNOTE ---
- Free Text/Narrative Note: Postoperative regional pain control requested by surgeon. Pre-op Dx: Right knee osteoarthritis. Post-op Rx: Total Right knee arthroplasty. Procedure: Right Adductor canal block with U/S guidance Requesting physician: Dr. Marlon Melendez Risks and benefits discussed with the patient preoperatively including infection, bleeding, incomplete or failed block, possible nerve damage, local anesthetic toxicity. Permit signed. Patient after spinal anesthesia post surgery in PACU, stable , alert and awake. Time out performed. Right mid-thigh was prepped with Chloraprep x 1 and allowed to dry. Under aseptic technique, the right femoral artery and sartorius muscle were identified under ultrasound prior to needle insertion. 4" Stimuplex needle #22 G was inserted under US guidance. Under direct visualization of needle tip the injection of 0.5% Ropivacaine with 1:200k epinephrine with 40 mcg of Dexmed etomidine and 8 mg of Dexamethasone, total of 25 mls in divided doses, maintaining negative aspiration was completed without problems. No local anesthetic toxicity was noted. Patient is awake, stable and tolerated the procedure well. Time: 13:13 - 13:17 Please see attached U/S pictures.
[2020-08-29] MEDS ORDERED: Lactated Ringers 1,000 ML ONE (11:35)
--- NOTE | 2020-08-29 13:22 | PCM.POSTAN ---
POST ANESTHESIA ASSESSMENT - MENTAL STATUS Mental Status: Somnolent - VITAL SIGNS Vital Signs: Last Vital Signs Temp 97.4 F 08/29/20 13:02 Pulse 99 08/29/20 09:03 Resp 24 H 08/29/20 13:02 BP 137/73 08/29/20 13:02 Pulse Ox 100 08/29/20 13:09 - RESPIRATORY Respiratory Status: Respiratory Rate WNL, Airway Patent, O2 Saturation Stable, Supplemental Oxygen - CARDIOVASCULAR CV Status: Pulse Rate WNL, Blood Pressure Stable - GASTROINTESTINAL GI Status: No Symptoms - PAIN Pain Score: 10 (per pt.. block is being done) - POST OP HYDRATION Hydration Status: Adequate & Stable
[2020-08-29] MEDS ORDERED: fentaNYL 100 MCG/2 ML SDV IVPUSH PRN (13:40)
--- NOTE | 2020-08-29 13:51 | CR ---
Right knee: AP and lateral views of the right knee were obtained. Comparison: No prior plain film study is available, previous CT exam of 08/23/20 is available. Knee prosthesis is noted. Components are aligned. Soft tissue air is noted from the surgical procedures. No acute bony abnormality is appreciated. Impression: 1. Satisfactory radiographic appearance of recently placed right knee prosthesis. Diagnostic code #2
[2020-08-29] MEDS ORDERED: oxyCODONE 5 MG Tab PO PRN ×2 (14:39→14:40)
[2020-08-29] MEDS ORDERED: Ondansetron 4 MG Tab.DIS PO PRN (14:42)
--- NOTE | 2020-08-29 14:51 | PCM48HPAN ---
Post Anesthesia Note - EVALUATION WITHIN 48HRS OF ANESTHETIC Vital Signs in Normal Range: Yes Patient Participated in Evaluation: Yes Respiratory Function Stable: Yes Airway Patent: Yes Cardiovascular Function Stable: Yes Hydration Status Stable: Yes Pain Control Satisfactory: Yes (going to [facility] floor for extended recovery) Nausea and Vomiting Control Satisfactory: Yes Mental Status Recovered: Yes Vital Signs: Last Vital Signs Temp 97.2 F 08/29/20 14:00 Pulse 86 08/29/20 14:00 Resp 17 08/29/20 14:00 BP 116/63 08/29/20 14:00 Pulse Ox 94 L 08/29/20 14:00 - COMMENTS/OBSERVATIONS Free Text/Narrative:: going to [facility] floor for extended recovery
--- NOTE | 2020-09-08 12:01 | PCM.OPNOTE ---
- General Post-Op/Procedure Note Date of Surgery/Procedure: 08/29/20 Operative Procedure(s): right total knee arthroplasty Pre Op Diagnosis: right knee osteoarthrosis Post-Op Diagnosis: Same Anesthesia Technique: Local, MAC, Spinal Primary Surgeon: Marlon Zarate Anesthesia Provider: Toribio Coronado Underground Production Foreperson: Evi Denise Underground Production Foreperson: Shanna Miller EBShawn in mLs: 50 Complications: None Condition: Good Free Text/Narrative:: 3 3 [id number]
--- NOTE | 2020-09-12 08:19 | OR ---
DATE OF OPERATION: 08/29/2020 SURGEON: Marlon Zarate MD OPERATION PERFORMED: Right total knee arthroplasty. PREOPERATIVE DIAGNOSIS: Right knee osteoarthrosis. POSTOPERATIVE DIAGNOSIS: Right knee osteoarthrosis. ANESTHESIA: Local MAC with spinal. ANESTHESIA PROVIDER: Alessandra Valentin. ASSISTANTS: Evi Denise PA-C, and Shanna Miller LPN. ESTIMATED BLOOD LOSS: 50 mL. COMPLICATIONS: None. CONDITION: Stable. IMPLANTS: 1. Dougherty size 3 press-fit CR femur. 2. Mikel size 3 press-fit tibial baseplate. 3. Mikel size 3, 9 mm CS polyethylene insert. 4. Mikel size 32 x 10 mm press-fit asymmetric patella. DESCRIPTION OF PROCEDURE: The patient was identified in the preoperative holding area. The proper site was marked and identified by the surgeon. The patient was taken back to the operating theater for anesthesia. The patient's right lower extremity had a nonsterile tourniquet applied and was then sterilely prepped and draped in the usual sterile fashion. An OR time-out was performed. The patient received 2 g IV Ancef. The leg jimenez device was then attached to the table, and the boot was attached to the patient. The right lower extremity was then exsanguinated, and the tourniquet was insufflated to 250 mmHg. A standard anterior incision was made, and a medial parapatellar arthrotomy was created. Deep fibers of the MCL were raised, and the anterior fat pad was resected. At this time, attention was turned to the patella. The patella was measured a 24 and resected to a 14 for a 32 x 10 mm patella. Drill holes were then drilled for the press-fit patella. Next, the intra-articular array was placed on the femur for the Mikel Dante robot along with the checkpoint. Next, the checkpoint as well as the tibial array was placed 4 fingerbreadths below the tibial tubercle with 4.0 pins. This was found to be adequate. 40 points were then obtained on both the femur and the tibia for the Mikel Dante robot. The plan was then completed on the computer for resection of both the femur and the tibia for this patient and their anatomy after a Carlos was used for the medial and lateral gap balancing. Once this was completed, the distal femoral cut was completed as well as the posterior and posterior chamfer cuts, and they were found to be adequate. At this time, the saw blade was changed out to a straight saw blade. The anterior and anterior chamfer cuts were then completed as well as the tibial cut and found to be adequate resections on all of those. The medial and lateral menisci were then removed as well as any posterior osteophytes. Trial implants were then placed. The patient had full extension with the Carlos. With the [employer]able[employer] robot, the patient had 1 mm less play on both the medial and lateral joint lines. The tibia was then stamped and drilled in the proper rotation. The size 3 press-fit tibia was then impacted in place. The size 3 press-fit femur was impacted into place. The size 3, 9 mm CS polyethylene insert was impacted in place. The patient's knee was brought to full extension, and a 32 x 10 mm press- fit patella was press-fit into place. The tourniquet was then deflated. 1 L of IrriSept irrigation was irrigated through the knee along with 1 L pulse lavage irrigation with Ancef. Periarticular injection was completed. Topical tranexamic acid and vancomycin powder were applied. A #2 barbed suture was used for closure of the medial parapatellar arthrotomy. 2-0 Vicryl as well as Stratafix was used for the subcutaneous closure. Prineo was used for skin closure. The patient had a sterile soft dressing applied and was sent to the PACU in stable condition. JIN /[id number]
== END 2020-08-29 19:10 | disposition home or self-care (01) ==
LOC: JD.SDS 09:02 → JD.MS 16:50 → JD.SDS 19:10
PROVIDERS: ATTEND Orthopaedic Surgery
DX: M17.11 Unilateral primary osteoarthritis, right knee (principal); F17.210 Nicotine dependence, cigarettes, uncomplicated; I10 Essential (primary) hypertension; E78.00 Pure hypercholesterolemia, unspecified; Z88.8 Allergy status to other drugs, medicaments and biological substances; Z88.1 Allergy status to other antibiotic agents; Z88.5 Allergy status to narcotic agent; Z88.7 Allergy status to serum and vaccine; Z79.899 Other long term (current) drug therapy; Z90.49 Acquired absence of other specified parts of digestive tract; Z98.890 Other specified postprocedural states; Z91.038 Other insect allergy status; E03.9 Hypothyroidism, unspecified; E66.9 Obesity, unspecified; Z79.890 Hormone replacement therapy; Z01.812 Encounter for preprocedural laboratory examination; Z20.822 Contact with and (suspected) exposure to COVID-19; Z68.32 Body mass index [BMI] 32.0-32.9, adult; G89.18 Other acute postprocedural pain
CPT/HCPCS: 27447; 73560; 87641; 97110; 97161; A9270; C1713; C1776; J0171; J0690; J0697; J1885; J2250; J2270; J2704; J2795; J3010; J3370; J3490; J7120; U0002; 01402; 64450; J2001

== ENCOUNTER 2021-05-18 05:53 | Day surgery (SDC) | payer MEDICARE, BC ==
[~2021-05-18 05:53] MED LIST changes: -Acetaminophen 325 MG Tab PO SCH; -Morphine 8 MG, EPINEPHrine 0.3 MG, Cefuroxime 750 MG, Ketorolac 30 MG, Sodium Chloride ... SCH; -Pregabalin 25 MG Cap PO SCH; -oxyCODONE ER 10 MG TAB.ER PO SCH
[2021-05-18] MEDS ORDERED: Bupivacaine 0.25% 10 ML SDV ONE (06:52)
[2021-05-18] MEDS ORDERED: Lidocaine 1% 30 ML SDV ONE (06:52)
--- NOTE | 2021-05-18 07:28 | PCM.PREANE ---
Preanesthetic Assessment - Procedure Proposed Procedure: Left CTR - Anesthesia/Transfusion/Family Hx Anesthesia History: Prior Anesthesia Without Reaction Family History of Anesthesia Reaction: No Transfusion History: No Prior Transfusion(s) Intubation History: Unknown - Review of Systems General: No Symptoms Pulmonary: No Symptoms (ETOH: occasionally) Cardiovascular: No Symptoms (HTN, elevated cholesterol), Palpitations Gastrointestinal: No Symptoms (IBS, GERD) Neurological: No Symptoms (fibromyalgia, motion sickness), Headache (migraines), Tingling (Left CTS) Other: Reports: Easy Bleeding, Easy Bruising, Thyroid Problems (Hypothyroid), Sinus Problem, Neck Pain - Physical Assessment NPO Status Date: 05/17/21 NPO Status Time: 23:20 Vital Signs: Last Vital Signs Temp 36.3 C 05/18/21 06:05 Pulse 94 05/18/21 06:05 Resp 18 05/18/21 06:05 BP 154/76 H 05/18/21 06:05 Pulse Ox 100 05/18/21 06:05 Height: 1.63 m Weight: 90.9 kg ASA Class: 3 Mental Status: Alert & Oriented x3 Airway Class: Mallampati = 2 Dentition: Reports: Normal Dentition, [place](s), Caries Thyro-Mental Finger Breadths: 3 Mouth Opening Finger Breadths: 3 ROM/Head Extension: Full Lungs: Clear to Auscultation, Normal Respiratory Effort Cardiovascular: Regular Rate, Regular Rhythm, No Murmurs - Lab Values: All labs reviewed and noted and within acceptable ranges to proceed with scheduled procedure. - Allergies Allergies/Adverse Reactions: Allergies Allergy/AdvReac Type Severity Reaction Status Date / Time amitriptyline Allergy Cannot Verified 05/18/21 06:55 Remember cephalexin Allergy Rash Verified 05/18/21 06:55 clarithromycin [From Biaxin] Allergy Cannot Verified 05/18/21 06:55 Remember levothyroxine sodium Allergy Rash Verified 05/18/21 06:55 paroxetine [From Paxil] Allergy Cannot Verified 05/18/21 06:55 Remember sulfamethoxazole Allergy Rash Verified 05/18/21 06:55 [From Bactrim] Tetanus Vaccines and Toxoid Allergy Hives Verified 05/18/21 06:55 [Tetanus Vaccines & Toxoid] trimethoprim [From Bactrim] Allergy Rash Verified 05/18/21 06:55 venom-honey bee Allergy Itching Verified 05/18/21 06:55 [bee venom (honey bee)] codeine AdvReac Headache Verified 05/18/21 06:55 fenofibrate AdvReac Muscle Verified 05/18/21 06:55 Weakness fluoxetine AdvReac Diarrhea Verified 05/18/21 06:55 levofloxacin AdvReac irregular Verified 05/18/21 06:55 heart beat venlafaxine AdvReac Vomiting Verified 05/18/21 06:55 wasps Allergy Anaphylactic Uncoded 05/17/21 16:02 Shock - Anesthesia Plan Pre-Op Medication Ordered: None - Acknowledgements Anesthesia Type Planned: MAC Pt an Appropriate Candidate for the Planned Anesthesia: Yes Alternatives and Risks of Anesthesia Discussed w Pt/Guardian: Yes Pt/Guardian Understands and Agrees with Anesthesia Plan: Yes PreAnesthesia Questionnaire HEENT History: Reports: Allergic Rhinitis, Glaucoma, Impaired Vision Other HEENT History: corneal ulcer to left eye Cardiovascular History: Reports: Hypertension Other Cardiovascular History: abnormal EKG, chest tightness Respiratory History: Reports: Bronchitis, Recurrent, Pneumonia, Recurrent Other Respiratory History: cough, lower respiratory infection Gastrointestinal History: Reports: GERD, Irritable Bowel Syndrome, Other (See Below) Other Gastrointestinal History: stomach malrotation Genitourinary History: Reports: Urinary Incontinence Other Genitourinary History: stress urinary incontinence, leakage, cystocele and rectocele repair 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) Other OB/BYN History: breast pain, menopausal hot flashes Musculoskeletal History: Reports: Arthritis, Fibromyalgia, Osteoarthritis Other Musculoskeletal History: generalized weakness, joint swelling Neurological History: Reports: Migraines Psychiatric History: Reports: Depression, Other (See Below) Endocrine/Metabolic History: Reports: Hypothyroidism, Obesity/BMI 30+ Other Endocrine/Metabolic History: enlarged thyroid, thyroid nodule Hematologic History: Reports: Anemia Other Hematologic History: leukocytosis Immunologic History: Reports: None Oncologic (Cancer) History: Reports: None Dermatologic History: Reports: Eczema Other Dermatologic History: hair loss, actinic keratosis, facial flushing, seborrheic keratosis - Infectious Disease History Infectious Disease History: Reports: None - Past Surgical History Head Surgeries/Procedures: Reports: None HEENT Surgical History: Reports: Cataract Surgery, Eye Surgery, Naso-Sinus Surgery, Oral Surgery Other HEENT Surgeries/Procedures: bilateral cataract surgery; bilateral trabeculectomy surgery Cardiovascular Surgical History: Reports: Aneurysm Respiratory Surgical History: Reports: None GI Surgical History: Reports: Appendectomy, Cholecystectomy, Colonoscopy Female Surgical History: Reports: Hysterectomy Other Female Surgeries/Procedures: lumpectomy; fibrocystic breast, cystocele, rectocele, bladder sling Endocrine Surgical History: Reports: None Neurological Surgical History: Reports: None Musculoskeletal Surgical History: Reports: Carpal Tunnel, Other (See Below) Other Musculoskeletal Surgeries/Procedures:: foot surgery Oncologic Surgical History: Reports: Biopsy of Breast Dermatological Surgical History: Reports: Other (See Below) - SUBSTANCE USE Tobacco Use Status *Q: Never Tobacco User Recreational Drug Use History: No - HOME MEDS Home Medications: Home Meds Brimonidine Tartrate/Timolol [Combigan 0.2%-0.5% Eye Drops] 1 drop EYERT BID 08/03/18 [History] Finasteride 1.25 mg PO DAILY 08/03/18 [History] Flunisolide [Nasalide Nasal [place]] 2 spray NASBOTH BID 08/03/18 [History] Levothyroxine 150 mcg PO ACBREAKFAST 08/03/18 [History] Omeprazole 40 mg PO DAILY 08/03/18 [History] Spironolactone 150 mg PO DAILY 08/03/18 [History] valACYclovir HCl [Valtrex] 500 mg PO DAILY 08/03/18 [History] EPINEPHrine [Epipen] 0.3 mg IM ONETIME PRN 03/11/19 [History] Prednisolone Acetate/Pf [Prednisolone Acet 1% Eye Drop] 1 drop EYELF DAILY 08/07/19 [History] Betamethasone/Propylene Glyc [Betamethasone Dp Aug 0.05% Oin] 1 applic TOP BID PRN 08/09/19 [History] Vitamin B6-pyridOXINE [Vitamin B6] 200 mg PO DAILY 08/09/19 [History] Losartan [Cozaar] 12.5 mg PO DAILY 08/11/19 [History] Cholecalciferol (Vitamin D3) [Vitamin D3] 5,000 unit PO DAILY 04/15/20 [History] Cyanocobalamin (Vitamin B12) [Vitamin B12] 1,000 mcg PO DAILY 04/15/20 [History] Docusate Sodium/Sennosides [Senokot-S] 1 - 3 each PO DAILY PRN 04/15/20 [History] Dorzolamide HCl/Pf [Dorzolamide 2% Eye Drop] 1 drop EYERT BID 04/15/20 [History] FA/Lycopene/Lut/MV,Ca,Iron,Min [Centrum] 1 tab PO DAILY 04/15/20 [History] Garlic 1 each PO DAILY 04/15/20 [History] Zinc 50 mg PO DAILY 04/15/20 [History] Loratadine [Claritin] 10 mg PO DAILY 08/26/20 [History] estradioL [Estradiol] 0.5 mg PO DAILY 08/26/20 [History] estradioL [Estradiol] 1 mg PO DAILY 08/26/20 [History] Orphenadrine Citrate [Orphenadrine Citrate ER] 100 mg PO BID PRN #20 tablet.er 08/29/20 [Rx] Acetaminophen [Tylenol Extra Strength] 500 mg PO Q4H PRN 05/17/21 [History] Acetaminophen/oxyCODONE [Percocet 325-5 MG] 1 - 2 each PO Q6H PRN #10 tab 05/17/21 [Rx] Lactobacillus Acidophilus [Probiotic] 1 tab PO DAILY 05/17/21 [History] Netarsudil Mesylat/Latanoprost [Rocklatan 0.02%-0.005% Eye Drp] 1 drop EYERT BEDTIME 05/17/21 [History] Turmeric 400 mg PO DAILY 05/17/21 [History] diphenhydrAMINE [Benadryl] 50 mg PO BEDTIME PRN 05/17/21 [History] predniSONE [Prednisone] 40 mg PO ASDIRECTED PRN 05/17/21 [History] - CURRENT (IN HOUSE) MEDS Current Meds: Current Medications Lactated Ringer's (Ringers, Lactated) 1,000 mls @ 125 mls/hr IV ASDIRECTED MOHINDER Stop: 05/18/21 23:00 Lidocaine/Sodium Bicarbonate (Lidocaine 1%/Sod Bicarbonate In Ns 8.4% 1 Ml Syringe) 0.25 ml IDERM ONETIME PRN PRN Reason: Prior to IV Start Stop: 05/18/21 18:00 Sodium Chloride (Sodium Chloride 0.9% 10 Ml Syringe) 10 ml FLUSH ASDIRECTED PRN PRN Reason: Keep Vein Open Stop: 05/18/21 18:00 Discontinued Medications Bupivacaine HCl (Bupivacaine 0.25% 10 Ml Sdv) Confirm Administered Dose 10 ml .ROUTE .STK-MED ONE Stop: 05/18/21 06:53 Lidocaine HCl (Lidocaine 1% 30 Ml Sdv) Confirm Administered Dose 30 ml .ROUTE .STK-MED ONE Stop: 05/18/21 06:53
[2021-05-18] MEDS ORDERED: Lactated Ringers 0 ML ONE (07:40)
[2021-05-18] MEDS ORDERED: ceFAZolin 1 GM Vial ONE ×2 (07:40→07:44)
[2021-05-18] MEDS ORDERED: Propofol 200 MG/20 ML SDV ONE ×2 (07:42→07:44)
[2021-05-18] MEDS ORDERED: Lactated Ringers 1,000 ML ONE (07:44)
[2021-05-18] MEDS ORDERED: Midazolam 1 MG/ML 2 ML SDV ONE (07:45)
[2021-05-18] MEDS ORDERED: fentaNYL 100 MCG/2 ML SDV ONE (07:45)
[2021-05-18] MEDS ORDERED: Ondansetron 4 MG/2 ML SDV IVPUSH PRN (07:54)
--- NOTE | 2021-05-18 08:21 | PCM48HPAN ---
Post Anesthesia Note - EVALUATION WITHIN 48HRS OF ANESTHETIC Vital Signs in Normal Range: Yes Patient Participated in Evaluation: Yes Respiratory Function Stable: Yes Airway Patent: Yes Cardiovascular Function Stable: Yes Hydration Status Stable: Yes Pain Control Satisfactory: Yes Nausea and Vomiting Control Satisfactory: Yes Mental Status Recovered: Yes Vital Signs: Last Vital Signs Temp 36.3 C 05/18/21 06:05 Pulse 94 05/18/21 06:05 Resp 18 05/18/21 06:05 BP 154/76 H 05/18/21 06:05 Pulse Ox 100 05/18/21 06:05
--- NOTE | 2021-05-18 11:29 | PCM.OPNOTE ---
- General Post-Op/Procedure Note Date of Surgery/Procedure: 05/18/21 Operative Procedure(s): left carpal tunnel release Pre Op Diagnosis: left median nerve compression neuropathy Post-Op Diagnosis: Same Anesthesia Technique: Local, MAC Primary Surgeon: Marlon Zarate Anesthesia Provider: Randee Lemus Shop Mechanic: Evi Denise EBShawn in mLs: 5 Complications: None Condition: Good Free Text/Narrative:: Intake & Output 05/17/21 05/18/21 05/18/21 22:59 06:59 14:59 Intake Total 100 Balance 100
--- NOTE | 2021-05-18 18:50 | OR ---
DATE OF OPERATION: 05/18/2021 SURGEON: Marlon Zarate MD OPERATION PERFORMED: Left carpal tunnel release. PREOPERATIVE DIAGNOSIS: Left median nerve compression neuropathy. POSTOPERATIVE DIAGNOSIS: Left median nerve compression neuropathy. ANESTHESIA: Local MAC. ANESTHESIA PROVIDER: Randee Lemus CRNA INSURANCE SPECIAL AGENT: Evi Denise PA-C. ESTIMATED BLOOD LOSS: Less than 5 mL. COMPLICATIONS: None. CONDITION: Stable. DESCRIPTION OF PROCEDURE: The patient was identified in the preop holding area. Proper site was marked and identified by the surgeon. The patient was taken back to the operating theater where after adequate anesthesia, the patient's left upper extremity was sterilely prepped and draped in the usual sterile fashion. OR time-out was performed. The patient did not receive antibiotics and it is not indicated for soft tissue hand procedure. At this time, the left upper extremity was exsanguinated and an Esmarch was used as a tourniquet on the forearm. At this time, using 1% lidocaine without epinephrine and 0.25% Marcaine without epinephrine, the palmar cutaneous branch of the median nerve was anesthetized and then the incisional site was anesthetized using Conner cardinal line and ulnar border of the fourth digit as reference. Once this had set up, an incision was made. Blunt dissection was taken down to the palmar cutaneous fascia. Palmar cutaneous fascia was incised with a Arabi blade. At this time, the transverse carpal ligament was identified. A small rent was made in the transverse carpal ligament with a Arabi blade under direct visualization. Resection of the transverse carpal ligament was done distally using tenotomy scissors making sure to stop short of the palmar arch. At this time, attention was turned proximally after it was found to be adequately released. Using the tenotomy scissors keeping the tips ulnar to protect the palmar cutaneous branch of the median nerve, the superficial forearm fascia as well as the transverse carpal ligament were resected proximally. It was found to be adequate release both proximally and distally. At this time, adequate saline was irrigated through the wound. 4-0 nylon sutures were used closure of the skin. The patient was placed in a sterile soft dressing and sent to PACU in stable condition. MMODAL /[id number]
== END 2021-05-18 09:20 | disposition home or self-care (01) ==
LOC: JD.SDS 05:53
PROVIDERS: ATTEND Orthopaedic Surgery
DX: G56.12 Other lesions of median nerve, left upper limb (principal); G56.02 Carpal tunnel syndrome, left upper limb; K21.9 Gastro-esophageal reflux disease without esophagitis; I10 Essential (primary) hypertension; E78.00 Pure hypercholesterolemia, unspecified; E03.9 Hypothyroidism, unspecified; E66.9 Obesity, unspecified; Z88.8 Allergy status to other drugs, medicaments and biological substances; Z88.1 Allergy status to other antibiotic agents; Z88.5 Allergy status to narcotic agent; Z88.7 Allergy status to serum and vaccine; Z79.899 Other long term (current) drug therapy; Z79.890 Hormone replacement therapy; Z90.49 Acquired absence of other specified parts of digestive tract; Z98.890 Other specified postprocedural states; Z91.030 Bee allergy status; Z91.038 Other insect allergy status
CPT/HCPCS: 01810; J0690; J2250; J2704; J3010; J3490; J7120

== ENCOUNTER 2023-05-02 07:25 | Day surgery (SDC) | payer MEDICARE, BC ==
[~2023-05-02 07:25] MED LIST changes: -Lactated Ringers 1,000 ML IV SCH; -Lidocaine 1%/Sod Bicarbonate in NS 8.4% 1 ML Syringe IDERM PRN; +Sodium Chloride 0.9% 10 ML Syringe FLUSH SCH
[2023-05-02] MEDS: Lactated Ringers 1,000 ML IV SCH ×2 (07:35→09:30)
[2023-05-02] MEDS ORDERED: Midazolam 1 MG/ML 2 ML SDV ONE (08:07)
[2023-05-02] MEDS ORDERED: Lidocaine 1% 4 ML ONE (08:07)
[2023-05-02] MEDS ORDERED: Propofol 200 MG/20 ML SDV ONE ×2 (08:07→08:58)
[2023-05-02] MEDS ORDERED: Ondansetron 4 MG/2 ML SDV IVPUSH PRN (09:30)
== END 2023-05-02 10:32 | disposition home or self-care (01) ==
LOC: JD.SDS 07:25
PROVIDERS: ATTEND Surgery
DX: Z12.11 Encounter for screening for malignant neoplasm of colon (principal); Q43.8 Other specified congenital malformations of intestine; Z53.09 Procedure and treatment not carried out because of other contraindication; M79.7 Fibromyalgia; K21.9 Gastro-esophageal reflux disease without esophagitis; I10 Essential (primary) hypertension; E78.00 Pure hypercholesterolemia, unspecified; E03.9 Hypothyroidism, unspecified; K58.9 Irritable bowel syndrome, unspecified; G25.81 Restless legs syndrome; E66.9 Obesity, unspecified; Z88.1 Allergy status to other antibiotic agents; Z88.8 Allergy status to other drugs, medicaments and biological substances; Z88.5 Allergy status to narcotic agent; Z88.7 Allergy status to serum and vaccine; Z79.890 Hormone replacement therapy; Z79.899 Other long term (current) drug therapy; Z79.52 Long term (current) use of systemic steroids; Z90.49 Acquired absence of other specified parts of digestive tract; Z68.34 Body mass index [BMI] 34.0-34.9, adult
CPT/HCPCS: J2250; J2405; J2704; J3490; J7120

== ENCOUNTER → 2023-12-23 | Day surgery (SDC) | payer MEDICARE ==
[~2023-12-23] MED LIST changes: +Ketorolac 15 MG/ML SDV ONE; +Lactated Ringers 1,000 ML IV SCH; +Lidocaine 1% 5 ML VIAL ONE; +Ondansetron 4 MG/2 ML SDV ONE; +Propofol 200 MG/20 ML SDV ONE; +ceFAZolin 2 GM Vial ONE; +fentaNYL 100 MCG/2 ML SDV ONE
[2023-12-23] MEDS: Bupivacaine 0.25% 10 ML SDV ONE (07:20)
[2023-12-23] MEDS: Lidocaine 1% 10 ML MDV ONE (07:20)
== END | disposition home or self-care (01) ==
LOC: JD.SDS 06:00
PROVIDERS: ATTEND Orthopaedic Surgery
DX: M65.841 Other synovitis and tenosynovitis, right hand (principal); M65.311 Trigger thumb, right thumb; K21.9 Gastro-esophageal reflux disease without esophagitis; I10 Essential (primary) hypertension; E78.00 Pure hypercholesterolemia, unspecified; E03.9 Hypothyroidism, unspecified; F32.A Depression, unspecified; E66.9 Obesity, unspecified; D64.9 Anemia, unspecified; Z88.8 Allergy status to other drugs, medicaments and biological substances; Z79.899 Other long term (current) drug therapy; Z79.890 Hormone replacement therapy; Z68.33 Body mass index [BMI] 33.0-33.9, adult
CPT/HCPCS: 26055; J0665; J0690; J1885; J2405; J2704; J3010; J7120; 01810; J3490